=== PATIENT | male | born 1955 | race Caucasian/White ===

== ENCOUNTER 2017-04-28 05:54 | Inpatient (IN) | payer OTHER ==
--- NOTE | 2017-04-14 15:26 | HP ---
AMENDED REPORT NOW INCLUDES COSIGNER DESIGNATION - ESIGNED BEFORE ADJUSTMENT HISTORY AND PHYSICAL: DATE OF ADMISSION/SURGERY: 04/28/17 DATE OF OFFICE VISIT: 04/14/17 SURGEON: Rosina Mcneil MD * (DICTATED BY HUGO ARMENDARIZ) PROCEDURE: Left total knee arthroplasty. CHIEF COMPLAINT: Left knee pain. HISTORY OF PRESENT ILLNESS: Mr. Hanks is a 61-year-old gentleman with complaints of left knee pain. He has failed conservative management and elected to proceed with a left total knee arthroplasty, which is scheduled for 04/28/[address] Mcneil. PAST MEDICAL HISTORY: Diabetes, hypertension, depression, anxiety, fibromyalgia , and sleep apnea. PAST SURGICAL HISTORY: Tonsillectomy, Achilles tendon repair, left knee arthroscopy, left adrenalectomy, and lithotripsy. CURRENT MEDICATIONS: 1. Victoza. 2. Lisinopril 5 mg daily. 3. Amlodipine 5 mg daily. 4. Toujeo. 5. Cialis. 6. Nortriptyline 25 mg 1 to 2 tabs every night. 7. Multivitamin. 8. Vitamin C. 9. Vitamin D. 10. CoQ10. 11. Magnesium. 12. Metformin 500 mg 2 tabs twice daily. 13. Repaglinide. ALLERGIES: None. FAMILY HISTORY: Cancer and stroke. SOCIAL HISTORY: A 61-year-old gentleman. Lives with his . He does not smoke. He denies use of drugs or alcohol. REVIEW OF SYSTEMS: A complete 14-point review of systems was reviewed with the patient, was positive for sleep apnea, diabetic neuropathy, diabetes. He denies history of DVT, PE, hepatitis C, HIV, or anesthesia problems. PHYSICAL EXAMINATION GENERAL: He is well developed, well nourished, in no acute distress. VITAL SIGNS: He stands 5 feet 11 inches tall, weighs 240 pounds. His blood pressure is 142/78, his heart rate is 88. HEENT: Normocephalic, atraumatic. NECK: Supple. No palpable lymph nodes. PULMONARY: Lungs are clear to auscultation bilaterally. CARDIO: Regular rate and rhythm. Strong S1, S2. ABDOMEN: Soft, nontender, nondistended. NEUROLOGICAL: He is alert and oriented x3. Cranial nerves II through XII are intact. MUSCULOSKELETAL: Left lower extremity, the skin is intact. There are no open wounds or abrasions. He has moderate joint effusion, tenderness over the medial and lateral joint line. 10 to 120 degrees of flexion. 2+ dorsalis pedis pulses, intact sensation, and his lower extremity muscle group strengths are intact at 5/5. ASSESSMENT AND PLAN: Mr. Hanks is a 61-year-old gentleman with left knee pain secondary to end-stage osteoarthritis. He has failed conservative management and has elected to proceed with a left total knee arthroplasty, which is scheduled for 04/28/[address] Mcneil discussed the risks and benefits of the surgery at today's visit and all of his questions were answered. Coumadin, Colace, and Percocet were sent to his pharmacy for postoperative pain control and DVT prophylaxis. He will follow up with Dr. Mcneil in 2 weeks after the surgery. HUGO ARMENDARIZ [id number]/[facility] #: [id number] [facility]
[~2017-04-28 05:54] MED LIST: Buffered Lidocaine 0.9% SYRIN* 5 ML/SYR SYRINGE INTRADERM ONE
[2017-04-28] MEDS ORDERED: Acetaminophen IV 1GM/100ML * 1,000 MG/100 ML VIAL IVPB ONE (06:00)
[2017-04-28] MEDS ORDERED: Dexamethasone IV* 4 MG/ML 1 ML (4 MG) IV SLOW PU ONE (06:00)
[2017-04-28] MEDS ORDERED: Gabapentin CAP(*) 300 MG PO ONE (06:00)
[2017-04-28] MEDS ORDERED: Famotidine IV* 10 MG/ML 2 ML (20 mg) IV ONE (06:00)
[2017-04-28] MEDS ORDERED: Acetaminophen IV 1GM/100ML * 100 ML ONE (06:13)
[2017-04-28] MEDS ORDERED: ceFAZolin 2 GM in 100 MLS NS (*) BAG IVPB ONE (06:16)
[2017-04-28] MEDS ORDERED: Dexamethasone IV* 4 MG/ML 1 ML (4 MG) ONE (06:16)
[2017-04-28] MEDS ORDERED: Gabapentin CAP(*) 300 MG ONE (06:16)
[2017-04-28] MEDS ORDERED: Buffered Lidocaine 0.9% SYRIN* 5 ML/SYR SYRINGE ONE (06:16)
[2017-04-28] MEDS ORDERED: Famotidine IV* 10 MG/ML 2 ML (20 mg) ONE (06:16)
[2017-04-28] MEDS ORDERED: Phenylephrine INJ* 10 MG/ML 1 ML VIAL (10 MG) ONE (07:05)
[2017-04-28] MEDS ORDERED: fentaNYL* 50 MCG/ML 5 ML VIAL (250 MCG VIAL) ONE (07:19)
[2017-04-28] MEDS ORDERED: Propofol* 10 MG/ML 20 ML BTL IV PUSH ONE (07:19)
[2017-04-28] MEDS ORDERED: Ketorolac INJ* 30 MG/ML 1 ML VIAL ONE (07:19)
[2017-04-28] MEDS ORDERED: Midazolam* 1 MG/ML 10 ML VIAL (10 MG) ONE (07:19)
[2017-04-28] MEDS ORDERED: Ondansetron INJ* 2 MG/ML VIAL ONE (07:19)
[2017-04-28] MEDS ORDERED: ROPIVACAINE 5 MG/ML 30 ML BTL (0.5%) ONE (07:20)
[2017-04-28] MEDS ORDERED: Atracurium* 10 MG/ML 10 ML VIAL ONE (07:20)
[2017-04-28] MEDS ORDERED: Bupivacaine 0.5% SDV PF* 10-30ML VIAL ONE (07:33)
[2017-04-28] MEDS ORDERED: KETAMINE HCL* 50 MG/ML 10 ML VIAL ONE (07:39)
[2017-04-28] MEDS ORDERED: fentaNYL* 50 MCG/ML 2 ML VIAL (100 MCG VIAL) ONE ×3 (08:11→10:49)
[2017-04-28] MEDS ORDERED: Glycopyrrolate IV* 0.2 MG/ML 1 ML VIAL ONE (08:12)
[2017-04-28] MEDS ORDERED: DiMENhydriNATE IV* 50 MG/ML VIAL IV PUSH PRN (08:23)
[2017-04-28] MEDS ORDERED: Naloxone* 0.4 MG/ML 1 ML VIAL IV PRN (08:23)
[2017-04-28] MEDS ORDERED: Ondansetron INJ* 2 MG/ML VIAL IV PRN ×2 (08:23→10:05)
[2017-04-28] MEDS ORDERED: Morphine INJ* 2 MG/ML 1 ML CARPUJECT IV PRN (10:05)
[2017-04-28] MEDS ORDERED: traZODone TAB* 50 MG TAB PO PRN (10:05)
[2017-04-28] MEDS ORDERED: diPHENhydraMINE IV* 50 MG/ML 1 ml VIAL (BENADRYL) IV PRN (10:05)
[2017-04-28] MEDS ORDERED: Magnesium Hydroxide LIQ* 30 ML UDC PO PRN (10:05)
[2017-04-28] MEDS ORDERED: Polyethylene Glycol 3350* 17 GM PACKET PO PRN (10:05)
[2017-04-28] MEDS ORDERED: Bisacodyl SUPP* 10 MG SUPP PR PRN (10:05)
[2017-04-28] MEDS ORDERED: oxyCODONE/Acetamin 5/325 MG* TAB PO PRN (10:05)
[2017-04-28] MEDS ORDERED: Dextrose 50% Syringe 50 ML* 25 GM/50 ML SYRINGE IV PUSH PRN ×2 (10:09→13:43)
[2017-04-28] MEDS ORDERED: HYDROmorphone INJ* 2 MG/ML CARPUJECT SYRINGE ONE (10:15)
[2017-04-28] MEDS: fentaNYL* 50 MCG/ML 2 ML VIAL (100 MCG VIAL) IV PRN ×3 (10:16→10:55)
[2017-04-28] MEDS: HYDROmorphone INJ* 1 MG/ML CARPUJECT SYRINGE IV PRN ×4 (10:19→10:56)
[2017-04-28] MEDS ORDERED: oxyCODONE TAB* 5 MG TAB ONE (10:59)
[2017-04-28] MEDS: oxyCODONE TAB* 5 MG TAB PO PRN ×3 (11:00→17:19)
[2017-04-28] MEDS ORDERED: Enoxaparin(*) 40 MG/0.4 ML SYR SUBCUT SCH (11:00)
--- NOTE | 2017-04-28 11:17 | RAD ---
Indication: Immediate postop exam following LEFT total knee replacement. Comparison: September 14, 2016 Technique: Portable AP and cross table lateral views LEFT knee. Report: Status post total knee replacement. Anterior surgical drain in place. Post-op fluid and gas is seen in the joint space and anterior subcutaneous tissues. Alignment is anatomic. No periprosthetic fracture evident. IMPRESSION: Unremarkable immediate postoperative appearance following LEFT knee replacement.
[2017-04-28] MEDS ORDERED: Insulin LISPRO* 1 UNITS UNIT SUBCUT SCH (11:30)
[2017-04-28] MEDS: Repaglinide TAB* 1 MG PO SCH (13:00)
[2017-04-28] MEDS: oxyCODONE/Acetamin 5/325 MG* TAB PO PRN ×2 (13:00→21:21)
[2017-04-28] MEDS: Enoxaparin(*) 40 MG/0.4 ML SYR SUBCUT SCH (13:01)
[2017-04-28] MEDS ORDERED: Insulin GLARGINE(*) 1 UNITS UNIT SUBCUT SCH (15:00)
[2017-04-28] MEDS ORDERED: Warfarin TAB(*) 6 MG PO ONE (17:00)
[2017-04-28] MEDS: ceFAZolin 1 GM in Dextrose (*) 1 GM/50 ML BAG IVPB SCH (17:18)
[2017-04-28] MEDS: Nortriptyline CAP* 25 MG PO SCH (17:18)
[2017-04-28] MEDS: metFORMIN* 1,000 MG TAB PO SCH (17:18)
[2017-04-28] MEDS: Insulin LISPRO* 1 UNITS UNIT SUBCUT SCH (18:24)
[2017-04-28] MEDS: Magnesium Hydroxide LIQ* 30 ML UDC PO SCH (19:34)
[2017-04-28] MEDS: Docusate CAP* 100 MG PO SCH (21:21)
--- NOTE | 2017-04-29 00:29 | CONS ---
CC: Dr. Mcneil; Dr. Farley CONSULTATION REPORT: DATE OF CONSULT: 04/28/17 The patient was requested to be consulted by the hospitalist service from Dr. Mcneil's service in [facility] to medical management of patient's hypertension and diabetes. CHIEF COMPLAINT: Left knee tingling and sore throat. HISTORY OF PRESENT ILLNESS: Duncan Hanks is a 61-year-old male with history of diabetes, hypertens ion, obstructive sleep apnea, who is status post left total knee arthroplasty performed by Dr. Mcneil today. The patient had general anesthesia since he requested it. He stated that he had spinal anest hesia for Achilles tendon repair and it "did not feel right." Right now, he complains of association of having a sore throat, but he has no problems swallowing. Campbell schultz has postoperative knee tingles. PAST MEDICAL HISTORY: 1. History of hypertension. 2. History of osteoarthritis. 3. History of dyslipidemia. 4. Obstructive sleep apnea, on CPAP. 5. Diabetes type 2. 6. History of hyperaldosteronism due to left adrenal adenoma. This was resected 4 years ago. 7. History of tonsillectomy. 8. History of arthroscopic knee surgery in the past. 9. History of Achilles tendon repair. MEDICATIONS: Include: 1. Lisinopril 5 mg daily. 2. Amlodipine 5 mg daily. 3. Insulin Lantus 60 units daily. 4. Nortriptyline 25 mg daily. 5. Prandin 1 mg at noon. 6. Cialis 2.5 mg on p.r.n. basis. 7. Ascorbic acid 1000 mg daily. 8. Vitamin D3 5000 units daily. 9. Coenzyme Q10 1 tablet daily. 10. Naproxen 220 mg b.i.d. p.r.n. 11. Multivitamin 1 tablet daily. 12. Metformin 1000 mg b.i.d. 13. Mag citrate 200 mg b.i.d. 14. Victoza 1.2 mg subcutaneously daily. 15. Flaxseed oil 1000 mg daily. 16. Ibuprofen on a p.r.n. basis. ALLERGIES: No known drug allergies. FAMILY HISTORY: Positive for mother who in her 80s of complications of TIAs and strokes. Fathe r who at age of 72 secondary to colon cancer. SOCIAL HISTORY: The patient denies any tobacco, alcohol, drug use. As his surrogate, he named his s isterKim. He works at [employer] at [employer]. REVIEW OF SYSTEMS: Please see history of present illness. All the remaining 12 systems were reviewed with the patient and were otherwise negative. PHYSICAL EXAM: Blood pressure of 153/82, heart rate of 95 and regular, respiratory rate 16, oxygen s aturation 95% on room air, temperature 99.9. General: The patient is a very pleasant 61-year-old ob beltran male, who is in no acute distress. Alert, awake, and oriented x3. HEENT: Head atraumatic, normo cephalic. Eyes: Extraocular motions are intact. Pupils are equal, reactive to light and accommodati on. Oropharynx is clear. Mucosa moist. Neck: Supple. No JVD, no bruits bilaterally. Cardiovascu lar: Regular rate and rhythm. No murmur. Respiratory: Clear to auscultation bilaterally. Abdomen: Soft, nontender. Bowel sounds are present in all 4 quadrants. Extremities: There is no edema. P ulses +2 bilaterally. No clubbing or cyanosis. Left knee is in Cryo unit postoperatively. On evalua tion of skin, no ecchymotic areas or rashes noted. Please note that in the left knee, there is a pos tsurgical wrap, was not undressed for evaluation. ASSESSMENT AND PLAN: 1. In regards to patient's left knee arthroscopy and recent surgery, that is b y Dr. Mcneil's service. The patient was already started on warfarin for DVT prophylaxis as well as Lo venox. 2. In regards to patient's diabetic management, the patient is very reluctant to have fingerstick fr equently. He had unpleasant experience in the past with some trauma to his fingertips and he is pret ty sensitive. At this point, he agrees to have fingersticks a.c. 3 times a day with lispro coverage. For the time being, I will place patient on Lantus insulin 10 mg daily and restart his metformin. The patient also is going to be continued on his Prandin. 3. In regards to his hypertension, his blood pressure is in the 150s currently. At this point, I am going to restart the patient's Norvasc and lisinopril. 4. For DVT prophylaxis, as stated above, the patient is going to be continued on Coumadin and Loveno x as per primary service. 5. Obstructive sleep apnea. The patient is to continue his CPAP, which he currently has in his room . TIME SPENT: Approximately 55 minutes were spent on consultation of this patient. Thank you very much for allowing me to see your patient in consultation. We will follow on a daily b asis. [id number]/[facility] #: [id number]
[2017-04-29] MEDS: ceFAZolin 1 GM in Dextrose (*) 1 GM/50 ML BAG IVPB SCH ×2 (00:50→09:15)
[2017-04-29] MEDS: oxyCODONE/Acetamin 5/325 MG* TAB PO PRN ×5 (03:54→20:55)
[2017-04-29 05:45] LABS: Hematocrit 33 % (42-52); Hemoglobin 11.2 g/dl (14.0-18.0); Mean Platelet Volume 6 um3 (7.4-10.4); Platelet Count 295 10^3/ul (150-450)
[2017-04-29 06:00] LABS: INR 1.16 (0.77-1.02)
[2017-04-29 06:01] LABS: EGFR Non-African American 110.3 (>60)
--- NOTE | 2017-04-29 08:19 | PN ---
Subjective Date of Service: 04/29/17 Interval History: Pt feels well. the left knee hurts "a little" Throat still sore after intubation Objective Active Medications: Amlodipine Besylate (Norvasc Tab*) 5 mg PO QAM [facility] Bisacodyl (Dulcolax Supp*) 10 mg NC DAILY PRN PRN Reason: constipation Cholecalciferol (Vitamin D Tab*) 5,000 units PO DAILY [facility] Cyclobenzaprine HCl (Flexeril Tab*) 5 mg PO TID PRN PRN Reason: SPASMS Dextrose (D50w Syringe 50 Ml*) 12.5 gm IV PUSH .FOR FS < 60 - SS PRN PRN Reason: FS < 60 Diphenhydramine HCl (Benadryl Iv*) 25 mg IV Q6H PRN PRN Reason: itching Docusate Sodium (Colace Cap*) 100 mg PO BID [facility] Last Admin: 04/28/17 21:21 Dose: 100 mg Enoxaparin Sodium (Lovenox(*)) 40 mg SUBCUT 1300 [facility] Last Admin: 04/28/17 13:01 Dose: 40 mg Lactated Ringer's (Lactated Ringers 1000 Ml Bag*) 1,000 mls @ 100 mls/hr IV PER RATE [facility] Last Admin: 04/28/17 21:22 Dose: 100 mls/hr Insulin Glargine (Lantus(*)) 15 units SUBCUT Q24H [facility] Insulin Human Lispro (Humalog*) 0 units SUBCUT AC [facility] PRN Reason: Protocol Last Admin: 04/28/17 18:24 Dose: 2 unit Lactulose (Lactulose*) 30 ml PO Q6H PRN PRN Reason: constipation Lisinopril (Prinivil Tab*) 5 mg PO DAILY [facility] Magnesium Hydroxide (Milk Of Magnesia Liq*) 30 ml PO BID [facility] Last Admin: 04/28/17 19:34 Dose: Not Given Magnesium Hydroxide (Milk Of Magnesia Liq*) 30 ml PO Q6H PRN PRN Reason: constipation Metformin HCl (Glucophage*) 1,000 mg PO 0800,1700 [facility] Last Admin: 04/28/17 17:18 Dose: 1,000 mg Morphine Sulfate (Morphine Inj (Syringe)*) 2 mg IV Q2H PRN PRN Reason: PAIN Multivitamins/Minerals (Theragran/Minerals Tab*) 1 tab PO QAM [facility] Naloxone HCl (Narcan*) 0.08 mg IV Q2M PRN PRN Reason: severe induced resp depression Stop: 04/29/17 08:22 Non-Formulary Medication (Co Q-10) 100 mg PO DAILY [facility] Nortriptyline HCl (Pamelor Cap*) 25 mg PO QPM [facility] Last Admin: 04/28/17 17:18 Dose: 25 mg Ondansetron HCl (Zofran Inj*) 4 mg IV Q6H PRN PRN Reason: nausea Oxycodone HCl (Roxycodone Tab*) 10 mg PO Q4H PRN PRN Reason: PAIN - SEVERE Last Admin: 04/28/17 17:19 Dose: 10 mg Oxycodone/Acetaminophen (Percocet 5/325 Tab*) 2 tab PO Q4H PRN PRN Reason: PAIN - MODERATE Last Admin: 04/29/17 03:54 Dose: 2 tab Oxycodone/Acetaminophen (Percocet 5/325 Tab*) 1 tab PO Q4H PRN PRN Reason: PAIN Polyethylene Glycol/Electrolytes (Miralax*) 17 gm PO DAILY PRN PRN Reason: Constipation Repaglinide (Prandin Tab*) 1 mg PO 1200 [facility] Last Admin: 04/28/17 13:00 Dose: 1 mg Trazodone HCl (Desyrel Tab*) 25 mg PO BEDTIME PRN PRN Reason: insomnia Vital Signs - 8 hr 04/29/17 04/29/17 04/29/17 03:46 03:54 06:34 Temperature 98.2 F Pulse Rate 96 Respiratory 18 18 18 Rate Blood Pressure 115/78 (mmHg) O2 Sat by Pulse 99 Oximetry 04/29/17 07:46 Temperature 97.5 F Pulse Rate 86 Respiratory 18 Rate Blood Pressure 123/59 (mmHg) O2 Sat by Pulse 99 Oximetry Oxygen Devices in Use Now: None Appearance: 61 yo m in nAD, aAOx3 Eyes: No Scleral Icterus, PERRLA Ears/Nose/Mouth/Throat: NL Teeth, Lips, Gums, - - soft palate with a couple of areas on blood injected tissue/abrasion like suspect due to intubation Respiratory: Symmetrical Chest Expansion and Respiratory Effort, Clear to Auscultation Cardiovascular: NL Sounds; No Murmurs; No JVD, RRR Abdominal: NL Sounds; No Tenderness; No Distention, No Hepatosplenomegaly Lymphatic: No Cervical Adenopathy Extremities: No Edema, No Clubbing, Cyanosis Skin: No Rash or Ulcers, No Nodules or Sclerosis, - - left knee-post op dressing not removed Neurological: Alert and Oriented x 3, NL Muscle Strength and Tone Result Diagrams: 04/29/17 05:30 04/29/17 05:30 Assess/Plan/Problems-Billing Assessment: 61 yo M with h/o HTN, DM2, after a left total knee replacement - Patient Problems (1) S/P total knee arthroplasty Comment: as per Dr. Mcneil (2) HTN (hypertension) Comment: controlled on home meds (3) DM2 (diabetes mellitus, type 2) Comment: cont ISS ans increasing Lantus to 15 U today. cont metformin Holding remaining diabetic home meds. (4) DVT prophylaxis Comment: coumadin and Lovenox as per ortho Status and Disposition: consult
[2017-04-29] MEDS: Cholecalciferol TAB* 1000 UNITS PO SCH (08:33)
[2017-04-29] MEDS: Docusate CAP* 100 MG PO SCH ×2 (08:35→19:34)
[2017-04-29] MEDS: metFORMIN* 1,000 MG TAB PO SCH ×2 (08:35→16:52)
[2017-04-29] MEDS: Lisinopril TAB* 5 MG PO SCH (08:36)
[2017-04-29] MEDS: amLODIPine TAB* 5 MG PO SCH (08:36)
[2017-04-29] MEDS: Insulin LISPRO* 1 UNITS UNIT SUBCUT SCH ×3 (08:37→16:54)
[2017-04-29] MEDS: Multivitamins/Minerals TAB PO SCH (08:39)
[2017-04-29] MEDS: Magnesium Hydroxide LIQ* 30 ML UDC PO SCH ×2 (08:39→19:34)
[2017-04-29] MEDS: CO Q10 100 MG PO SCH (08:40)
--- NOTE | 2017-04-29 09:14 | PN ---
Progress Note - Progress Note Date of Service: 04/29/17 SOAP: Subjective: Pt. is alert, reports pain is moderate to severe with activity. Objective: LLE - drain removed, tip intact. dressing c/d/i. distally no edema, +df/pf , full sens lt, 2+ dp pulse. Vital Signs: Temp Pulse Resp BP Pulse Ox 97.5 F 86 17 123/59 99 04/29/17 07:46 04/29/17 07:46 04/29/17 08:42 04/29/17 07:46 04/29/17 07:46 Laboratory Results - last 24 hr 04/28/17 04/28/17 04/29/17 10:09 17:30 05:30 Hgb 11.2 L Hct 33 L Plt Count 295 MPV 6 L INR (Anticoag Therapy) Sodium Potassium Chloride Carbon Dioxide Anion Gap BUN Creatinine Est GFR ( Amer) Est GFR (Non-Af Amer) BUN/Creatinine Ratio Glucose POC Glucose (mg/dL) 179 H 168 H Calcium 04/29/17 04/29/17 05:30 05:30 Hgb Hct Plt Count MPV INR (Anticoag Therapy) 1.16 H Sodium 134 Potassium 4.1 Chloride 102 Carbon Dioxide 26 Anion Gap 6 BUN 14 Creatinine 0.72 Est GFR ( Amer) 141.8 Est GFR (Non-Af Amer) 110.3 BUN/Creatinine Ratio 19.4 Glucose 200 H POC Glucose (mg/dL) Calcium 8.5 L Assessment: 61 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
[2017-04-29] MEDS: oxyCODONE TAB* 5 MG TAB PO PRN ×4 (10:07→23:27)
[2017-04-29] MEDS: Cyclobenzaprine TAB* 10 MG PO PRN ×2 (10:09→20:54)
[2017-04-29] MEDS: Enoxaparin(*) 40 MG/0.4 ML SYR SUBCUT SCH (13:01)
--- NOTE | 2017-04-29 13:10 | OP ---
DATE OF OPERATION: 04/28/17 - ROOM #342 DATE OF : 51 ATTENDING SURGEON: Rosina Mcneil MD EXTRUSION DIE COORDINATOR: HUGO Leblanc. Marisel did help throughout the procedure with preparation of the leg, wound retraction, manipulation of the knee, and wound closure. ANESTHESIOLOGIST: Dr. James. ANESTHESIA: Spinal. PRE-OP DIAGNOSIS: Severe end-stage degenerative osteoarthritis of the left knee joint. POST-OP DIAGNOSIS: Severe end-stage degenerative osteoarthritis of the left knee joint. OPERATIVE PROCEDURE: Left total knee arthroplasty. TOURNIQUET TIME: 44 minutes. COMPLICATIONS: None. ESTIMATED BLOOD LOSS: 200 cc. SPECIMENS: Bone and Cartilage from the left knee joint sent to Pathology. HARDWARE USED: [employer] Cemented total knee arthroplasty hardware. Two packages of simplex bone cement were used. For the femur a size 6 left posterior stabilized Legion Oxinium femoral component. For the tibia a size 5 left tibial base plate Kellie II. For the insert a 9 mm posterior stabilized articular insert, size 5/6. For the patella a 35-mm 3-peg all polyp patella. BRIEF HISTORY/INDICATIONS: Mr. Hanks is a 61-year-old gentleman with years of increasingly severe left knee pain. He failed conservative treatment with antiinflammatories, pain medications, intraarticular injection, and physical therapy. Radiographs showed [id number] arthritis. Due to continued pain and decreased quality of life, he elected to undergo a left total knee arthroplasty. Informed consent was obtained from the patient. He understood the risks of surgery included but were not limited to bleeding, infection, damage to nearby structures, continued pain, need for further surgery, intraoperative fracture, nerve palsy, hardware failure or loosening, knee stiffness, loss of motion, stroke, heart attack, blood clot, and . He wished to proceed. INTRAOPERATIVE FINDINGS: Intraoperatively, the patient was noted to have full thickness loss of cartilage in both the medial and patellofemoral compartment. DESCRIPTION OF PROCEDURE: Mr. Hanks was identified in the preanesthesia unit. His left lower extremity was marked as the correct operative site. Informed consent was signed and placed in the chart. The patient was taken to the operating room and placed under spinal anesthesia. Kearney catheter was placed. Tourniquet was placed on the left thigh. Left lower extremity was prepped and draped in the usual sterile fashion. Preop time-out was performed to once again correctly identify the patient, side and site. Appropriate perioperative antibiotics were given within 1 hour of incision. Tourniquet was inflated and total tourniquet time for this procedure was 44 minutes. A midline incision was made at 10 blade and carried down to the extensor mechanism. A new 10-blade was used to make a standard medial parapatellar arthrotomy. The patella was subluxed laterally. Electrocautery was used to subperiosteally elevate the soft tissue off the superomedial tibia to the mid sagittal plane. The knee was flexed up. The anterior horn of the lateral meniscus and ACL were sharply released. A drill was used to enter the distal femur. Intramedullary distal femoral cutting guide was pinned onto the distal femur. The oscillating saw was used to make the appropriate distal femoral cut. External rotation guide was pinned on the distal femur. Distal femur was sized to a size 6. Size 6 multi cutting jig was pinned on the distal femur. Oscillating saw was used to make the appropriate 4 chamfer cuts. The PCL was completely released. Tibia was subluxed anteriorly. Extramedullary tibial cutting guide was pinned on the proximal tibia. Oscillating saw was used to make a proximal tibial cut perpendicular to the mechanical axis of the tibia. The bone was carefully removed. The knee was brought out into full extension. Spacer block had good fit. Medial and lateral ligaments were well balanced. Flexion and extension gaps were well balanced. The knee was flexed up. Lamina collar feller was placed both medially and laterally. Any remaining meniscus was removed using electrocautery. Curved osteotome was used to remove posterior osteophytes. Tibial tray and drop marcos were placed to once again confirm satisfactory tibial cut. Tibial cut was confirmed to be satisfactory. A size 6 left femoral trial was impacted on to the distal femur and had good fit. The box for the posterior stabilized implant was prepared using a reamer and box- cut osteotome. A size 5 tibial tray trial with a 9-mm insert trial was placed and the knee was taken through range of motion. The knee had full extension to 130 degrees of flexion. There was satisfactory patellofemoral tracking. The patella was everted. 9 mm of patellar bone and cartilage was carefully removed with an oscillating saw. The patella was sized to a size 35. The three peg holes were drilled through the size 35 guide. 35 trial patellar was placed and the knee was taken through range of motion. There was satisfactory patellofemoral tracking. All trials were carefully removed. The tibia was subluxed anteriorly and sized to a size 5. Proximal tibia was prepared using a size 5 keel punch. All bony cut surfaces were copiously irrigated with sterile saline and dried. Final implants were cemented into place starting with the tibia followed by the femur and last the patella. A 9-mm insert trial was placed and the knee was brought out into full extension. Tourniquet was turned down at 44 minutes. The knee was copiously irrigated with sterile saline. Electrocautery was used to obtain meticulous hemostasis. Once the cement had fully cured, the insert trial was removed. Any excess cement was removed from around the capsule and hardware. Final insert chosen was a 9-mm posterior stabilized insert, size 5/6. This was locked into position on the tibial tray. Stability of the insert was checked and rechecked and noted to be stable. The knee was once again copiously irrigated with sterile saline. The extensor mechanism was closed over a medium Hemovac drain using interrupted #1 Vicryls. The rest of the incision was closed in a layered fashion using 0 and 2-0 Vicryls. Skin was closed using running 3-0 nylon suture. Xeroform, 4x4s, and Webril were used to cover the incision. Juan wrap and cold pack were placed over this. The patient's anesthesia was reversed without difficulty. He was taken to the PACU in stable condition. Intended weightbearing will be weightbearing as tolerated. Intended DVT prophylaxis will be Coumadin with a Lovenox bridge. [id number]/[facility] #: [id number] [facility]
[2017-04-29] MEDS: Repaglinide TAB* 1 MG PO SCH (13:23)
[2017-04-29] MEDS ORDERED: Insulin GLARGINE(*) 1 UNITS UNIT SUBCUT SCH (15:00)
[2017-04-29] MEDS: Nortriptyline CAP* 25 MG PO SCH (16:52)
[2017-04-30] MEDS: oxyCODONE/Acetamin 5/325 MG* TAB PO PRN ×5 (01:08→23:18)
[2017-04-30 05:41] LABS: Hematocrit 33 % (42-52); Hemoglobin 11.4 g/dl (14.0-18.0); Mean Platelet Volume 6 um3 (7.4-10.4); Platelet Count 275 10^3/ul (150-450)
[2017-04-30 05:47] LABS: INR 1.12 (0.77-1.02)
[2017-04-30] MEDS: oxyCODONE TAB* 5 MG TAB PO PRN ×3 (06:14→14:35)
[2017-04-30] MEDS: Cholecalciferol TAB* 1000 UNITS PO SCH (08:29)
[2017-04-30] MEDS: metFORMIN* 1,000 MG TAB PO SCH ×2 (08:29→17:20)
[2017-04-30] MEDS: Multivitamins/Minerals TAB PO SCH (08:29)
[2017-04-30] MEDS: Docusate CAP* 100 MG PO SCH ×2 (08:30→19:52)
[2017-04-30] MEDS: Lisinopril TAB* 5 MG PO SCH (08:30)
[2017-04-30] MEDS: amLODIPine TAB* 5 MG PO SCH (08:30)
[2017-04-30] MEDS: Magnesium Hydroxide LIQ* 30 ML UDC PO SCH ×2 (08:32→19:52)
[2017-04-30] MEDS: CO Q10 100 MG PO SCH (08:32)
[2017-04-30] MEDS: Insulin LISPRO* 1 UNITS UNIT SUBCUT SCH ×3 (08:33→17:19)
--- NOTE | 2017-04-30 11:22 | PN ---
Subjective Date of Service: 04/30/17 Interval History: Pt just had PT and feels "sore" Objective Active Medications: Amlodipine Besylate (Norvasc Tab*) 5 mg PO QAM [facility] Last Admin: 04/30/17 08:30 Dose: 5 mg Bisacodyl (Dulcolax Supp*) 10 mg UT DAILY PRN PRN Reason: constipation Cholecalciferol (Vitamin D Tab*) 5,000 units PO DAILY [facility] Last Admin: 04/30/17 08:29 Dose: 5,000 units Cyclobenzaprine HCl (Flexeril Tab*) 5 mg PO TID PRN PRN Reason: SPASMS Last Admin: 04/29/17 20:54 Dose: 5 mg Dextrose (D50w Syringe 50 Ml*) 12.5 gm IV PUSH .FOR FS < 60 - SS PRN PRN Reason: FS < 60 Diphenhydramine HCl (Benadryl Iv*) 25 mg IV Q6H PRN PRN Reason: itching Docusate Sodium (Colace Cap*) 100 mg PO BID [facility] Last Admin: 04/30/17 08:30 Dose: 100 mg Enoxaparin Sodium (Lovenox(*)) 40 mg SUBCUT 1300 [facility] Last Admin: 04/29/17 13:01 Dose: 40 mg Lactated Ringer's (Lactated Ringers 1000 Ml Bag*) 1,000 mls @ 100 mls/hr IV PER RATE [facility] Last Admin: 04/28/17 21:22 Dose: 100 mls/hr Insulin Glargine (Lantus(*)) 15 units SUBCUT Q24H [facility] Last Admin: 04/29/17 15:11 Dose: 15 units Insulin Human Lispro (Humalog*) 0 units SUBCUT AC [facility] PRN Reason: Protocol Last Admin: 04/30/17 08:33 Dose: 4 unit Lactulose (Lactulose*) 30 ml PO Q6H PRN PRN Reason: constipation Lisinopril (Prinivil Tab*) 5 mg PO DAILY [facility] Last Admin: 04/30/17 08:30 Dose: 5 mg Magnesium Hydroxide (Milk Of Magnesia Liq*) 30 ml PO BID [facility] Last Admin: 04/30/17 08:32 Dose: 30 ml Magnesium Hydroxide (Milk Of Magnesia Liq*) 30 ml PO Q6H PRN PRN Reason: constipation Metformin HCl (Glucophage*) 1,000 mg PO 0800,1700 [facility] Last Admin: 04/30/17 08:29 Dose: 1,000 mg Morphine Sulfate (Morphine Inj (Syringe)*) 2 mg IV Q2H PRN PRN Reason: PAIN Multivitamins/Minerals (Theragran/Minerals Tab*) 1 tab PO QAM [facility] Last Admin: 04/30/17 08:29 Dose: 1 tab Non-Formulary Medication (Co Q-10) 100 mg PO DAILY [facility] Last Admin: 04/30/17 08:32 Dose: Not Given Nortriptyline HCl (Pamelor Cap*) 25 mg PO QPM [facility] Last Admin: 04/29/17 16:52 Dose: 25 mg Ondansetron HCl (Zofran Inj*) 4 mg IV Q6H PRN PRN Reason: nausea Oxycodone HCl (Roxycodone Tab*) 10 mg PO Q4H PRN PRN Reason: PAIN - SEVERE Last Admin: 04/30/17 10:35 Dose: 10 mg Oxycodone/Acetaminophen (Percocet 5/325 Tab*) 2 tab PO Q4H PRN PRN Reason: PAIN - MODERATE Last Admin: 04/30/17 08:29 Dose: 2 tab Oxycodone/Acetaminophen (Percocet 5/325 Tab*) 1 tab PO Q4H PRN PRN Reason: PAIN Polyethylene Glycol/Electrolytes (Miralax*) 17 gm PO DAILY PRN PRN Reason: Constipation Repaglinide (Prandin Tab*) 1 mg PO 1200 [facility] Last Admin: 04/29/17 13:23 Dose: 1 mg Trazodone HCl (Desyrel Tab*) 25 mg PO BEDTIME PRN PRN Reason: insomnia Vital Signs - 8 hr 04/30/17 04/30/17 04/30/17 04:19 06:14 07:50 Temperature 98.5 F 99.0 F Pulse Rate 93 98 Respiratory 16 14 18 Rate Blood Pressure 134/66 123/66 (mmHg) O2 Sat by Pulse 94 93 Oximetry 04/30/17 04/30/17 04/30/17 08:00 08:29 08:33 Temperature Pulse Rate Respiratory 16 16 16 Rate Blood Pressure (mmHg) O2 Sat by Pulse 93 Oximetry 04/30/17 10:35 Temperature Pulse Rate Respiratory 20 Rate Blood Pressure (mmHg) O2 Sat by Pulse Oximetry Oxygen Devices in Use Now: None Appearance: 61 yo M in nAD, aAOx3 Eyes: No Scleral Icterus, PERRLA Ears/Nose/Mouth/Throat: NL Teeth, Lips, Gums, Mucous Membranes Moist Neck: NL Appearance and Movements; NL JVP, Trachea Midline Respiratory: Symmetrical Chest Expansion and Respiratory Effort, Clear to Auscultation Cardiovascular: NL Sounds; No Murmurs; No JVD, RRR Lymphatic: No Cervical Adenopathy Extremities: No Clubbing, Cyanosis, - - leg leg with trase pedal edema, cryo unit on left knee Skin: No Nodules or Sclerosis, - - left knee incision not inspected Neurological: Alert and Oriented x 3, NL Muscle Strength and Tone Result Diagrams: 04/30/17 05:20 04/29/17 05:30 Assess/Plan/Problems-Billing Assessment: 61 yo M with h/o HTN, DM2, after a left total knee replacement - Patient Problems (1) S/P total knee arthroplasty Comment: as per Dr. Mcneil (2) HTN (hypertension) Comment: controlled on home meds (3) DM2 (diabetes mellitus, type 2) Comment: cont ISS ans increasing Lantus to 20 U today. cont metformin Holding remaining diabetic home meds. (4) DVT prophylaxis Comment: coumadin and Lovenox as per ortho Status and Disposition: consult
--- NOTE | 2017-04-30 11:51 | PN ---
Progress Note - Progress Note Date of Service: 04/30/17 SOAP: Subjective: 61 y/o male s/p L TKA by Dr. Mcneil 04/28. Patient fatigued, pain well controlled , no complaints, mutliple questions answered. VSS, afebrile overnight. Objective: General- Well appearing, NAD, AO MSK- l LE- DF/PF 2+ b/l, PT 2+, negative homans sign. surgical dressing intact , no drainage noted. Assessment: Stable 61 y/o male s/p L TKA by Dr. Mcneil 04/28. Plan: - DVT prophylaxis- lovenox, coumadin 8mg tonight - Continue PT/ OT - Follow up with Dr. Mcneil within 10-14 days - H&H stable - post-op IV ABX - completed. - POssible D/C this afternoon to home, otherwise tomorrow AM Vital Signs Temp 99.0 F 04/30/17 07:50 Pulse 98 04/30/17 07:50 Resp 16 04/30/17 11:41 BP 123/66 04/30/17 07:50 Pulse Ox 93 04/30/17 08:00 Intake & Output 04/29/17 04/30/17 04/30/17 18:59 06:59 18:59 Intake Total 1280 2500 Output Total 2970 1500 225 Balance -1690 1000 -225 Intake: Oral 1280 2500 Output: Urine 2970 1500 225 Other: # Voids 3 Active Medications Generic Name Dose Route Start Last Admin Trade Name Freq PRN Reason Stop Dose Admin Amlodipine Besylate 5 mg 04/29/17 09:00 04/30/17 08:30 Norvasc Tab* PO 5 mg QAM [facility] Administration Bisacodyl 10 mg 04/28/17 10:05 Dulcolax Supp* MO DAILY PRN constipation Cholecalciferol 5,000 units 04/29/17 09:00 04/30/17 08:29 Vitamin D Tab* PO 5,000 units DAILY [facility] Administration Cyclobenzaprine HCl 5 mg 04/28/17 10:05 04/29/17 20:54 Flexeril Tab* PO 5 mg TID PRN Administration SPASMS Dextrose 12.5 gm 04/28/17 13:43 D50w Syringe 50 Ml* IV PUSH .FOR FS < 60 - SS PRN FS < 60 Diphenhydramine HCl 25 mg 04/28/17 10:05 Benadryl Iv* IV Q6H PRN itching Docusate Sodium 100 mg 04/28/17 21:00 04/30/17 08:30 Colace Cap* PO 100 mg BID [facility] Administration Enoxaparin Sodium 40 mg 04/28/17 13:00 04/29/17 13:01 Lovenox(*) SUBCUT 40 mg 1300 [facility] Administration Lactated Ringer's 1,000 mls @ 100 mls/hr 04/28/17 11:00 04/28/17 21:22 Lactated Ringers 1000 Ml Bag* IV 100 mls/hr PER RATE [facility] Administration Insulin Glargine 20 units 04/30/17 15:00 Lantus(*) SUBCUT Q24H [facility] Insulin Human Lispro 0 units 04/28/17 16:30 04/30/17 08:33 Humalog* SUBCUT 4 unit AC [facility] Administration Protocol Lactulose 30 ml 04/28/17 10:05 Lactulose* PO Q6H PRN constipation Lisinopril 5 mg 04/29/17 09:00 04/30/17 08:30 Prinivil Tab* PO 5 mg DAILY [facility] Administration Magnesium Hydroxide 30 ml 04/28/17 21:00 04/30/17 08:32 Milk Of Magnesia Liq* PO 30 ml BID [facility] Administration Magnesium Hydroxide 30 ml 04/28/17 10:05 Milk Of Magnesia Liq* PO Q6H PRN constipation Metformin HCl 1,000 mg 04/28/17 17:00 04/30/17 08:29 Glucophage* PO 1,000 mg 0800,1700 [facility] Administration Morphine Sulfate 2 mg 04/28/17 10:05 Morphine Inj (Syringe)* IV Q2H PRN PAIN Multivitamins/Minerals 1 tab 04/29/17 09:00 04/30/17 08:29 Theragran/Minerals Tab* PO 1 tab QAM [facility] Administration Non-Formulary Medication 100 mg 04/29/17 09:00 04/30/17 08:32 Co Q-10 PO Not Given DAILY [facility] Nortriptyline HCl 25 mg 04/28/17 18:00 04/29/17 16:52 Pamelor Cap* PO 25 mg QPM [facility] Administration Ondansetron HCl 4 mg 04/28/17 10:05 Zofran Inj* IV Q6H PRN nausea Oxycodone HCl 10 mg 04/28/17 10:05 04/30/17 10:35 Roxycodone Tab* PO 10 mg Q4H PRN Administration PAIN - SEVERE Oxycodone/Acetaminophen 2 tab 04/28/17 10:05 04/30/17 08:29 Percocet 5/325 Tab* PO 2 tab Q4H PRN Administration PAIN - MODERATE Oxycodone/Acetaminophen 1 tab 04/28/17 10:05 Percocet 5/325 Tab* PO Q4H PRN PAIN Polyethylene Glycol/Electrolytes 17 gm 04/28/17 10:05 Miralax* PO DAILY PRN Constipation Repaglinide 1 mg 04/28/17 12:00 04/29/17 13:23 Prandin Tab* PO 1 mg 1200 [facility] Administration Trazodone HCl 25 mg 04/28/17 10:05 Desyrel Tab* PO BEDTIME PRN insomnia
[2017-04-30] MEDS: Insulin GLARGINE(*) 1 UNITS UNIT SUBCUT SCH (12:51)
[2017-04-30] MEDS: Enoxaparin(*) 40 MG/0.4 ML SYR SUBCUT SCH (12:52)
[2017-04-30] MEDS: Repaglinide TAB* 1 MG PO SCH (12:55)
[2017-04-30] MEDS: Nortriptyline CAP* 25 MG PO SCH (17:20)
[2017-05-01 05:39] LABS: Hematocrit 36 % (42-52); Hemoglobin 12.2 g/dl (14.0-18.0); Mean Platelet Volume 6 um3 (7.4-10.4); Platelet Count 323 10^3/ul (150-450)
[2017-05-01 05:49] LABS: INR 1.14 (0.77-1.02)
[2017-05-01] MEDS: oxyCODONE/Acetamin 5/325 MG* TAB PO PRN ×2 (06:01→10:16)
[2017-05-01 08:07] VITALS: BP 131/73
[2017-05-01] MEDS: Insulin LISPRO* 1 UNITS UNIT SUBCUT SCH ×2 (08:16→11:56)
[2017-05-01] MEDS: Magnesium Hydroxide LIQ* 30 ML UDC PO SCH (08:18)
[2017-05-01] MEDS: Cholecalciferol TAB* 1000 UNITS PO SCH (08:18)
[2017-05-01] MEDS: metFORMIN* 1,000 MG TAB PO SCH (08:18)
[2017-05-01] MEDS: Multivitamins/Minerals TAB PO SCH (08:18)
[2017-05-01] MEDS: Docusate CAP* 100 MG PO SCH (08:19)
[2017-05-01] MEDS: Lisinopril TAB* 5 MG PO SCH (08:19)
[2017-05-01] MEDS: amLODIPine TAB* 5 MG PO SCH (08:19)
[2017-05-01] MEDS: CO Q10 100 MG PO SCH (08:20)
--- NOTE | 2017-05-01 09:04 | PN ---
Progress Note - Progress Note Date of Service: 05/01/17 SOAP: Subjective: []Patient seen at bedside. His left knee pain is well controlled. He feels as though he has chills but denies cough, SOB, CP, GI upset. He is afebrile at this time. He has no history of blood clots. Objective: [] General- Well appearing, NAD, laying comfortably in bed MSK- LLE- DF/PF intact, PT pulse 2+. Dressing changed. Incision CDI without surrounding erythema or discharge BL LE: Calves supple and nontender without erythema, edema or palpable cords. Vital Signs Temp 97.5 F 05/01/17 07:37 Pulse 99 05/01/17 07:37 Resp 18 05/01/17 08:20 BP 131/73 05/01/17 07:37 Pulse Ox 99 05/01/17 08:00 Intake & Output 04/30/17 05/01/17 05/01/17 18:59 06:59 18:59 Intake Total 1020 1600 400 Output Total 1125 2050 300 Balance -105 -450 100 Intake: Oral 1020 1600 400 Output: Urine 1125 2050 300 Laboratory Last Values Hgb 12.2 g/dl (14.0-18.0) L 05/01/17 05:10 Hct 36 % (42-52) L 05/01/17 05:10 Plt Count 323 10^3/ul (150-450) 05/01/17 05:10 MPV 6 um3 (7.4-10.4) L 05/01/17 05:10 INR (Anticoag Therapy) 1.14 (0.77-1.02) H 05/01/17 05:10 Sodium 134 mmol/L (133-145) 04/29/17 05:30 Potassium 4.1 mmol/L (3.5-5.0) 04/29/17 05:30 Chloride 102 mmol/L (101-111) 04/29/17 05:30 Carbon Dioxide 26 mmol/L (22-32) 04/29/17 05:30 Anion Gap 6 mmol/L (2-11) 04/29/17 05:30 BUN 14 mg/dL (6-24) 04/29/17 05:30 Creatinine 0.72 mg/dL (0.67-1.17) 04/29/17 05:30 Est GFR ( Amer) 141.8 (>60) 04/29/17 05:30 Est GFR (Non-Af Amer) 110.3 (>60) 04/29/17 05:30 BUN/Creatinine Ratio 19.4 (8-20) 04/29/17 05:30 Glucose 200 mg/dL (70-100) H 04/29/17 05:30 POC Glucose (mg/dL) 168 mg/dL (70-100) H 04/28/17 17:30 Calcium 8.5 mg/dL (8.6-10.3) L 04/29/17 05:30 Assessment: Stable 61 y/o male s/p L TKA by Dr. Mcneil 04/28. Plan: -WBAT - DVT prophylaxis- lovenox shot today before DC. Transition to ASA 325 BID on discharge - Continue PT/ OT - Follow up with Dr. Mcneil within 10-14 days - Discharge today
[2017-05-01] MEDS: Insulin GLARGINE(*) 1 UNITS UNIT SUBCUT SCH (11:57)
[2017-05-01] MEDS: Repaglinide TAB* 1 MG PO SCH (11:57)
[2017-05-01] MEDS: Enoxaparin(*) 40 MG/0.4 ML SYR SUBCUT SCH (11:57)
--- NOTE | 2017-05-02 10:45 | DS ---
AMENDED REPORT NOW INCLUDES COSIGNER DESIGNATION - ESIGNED BEFORE ADJUSTMENTS DISCHARGE SUMMARY: DATE OF ADMISSION: 04/28/17 DATE OF DISCHARGE: 05/01/17 PROVIDER: Dr. Rosina Mcneil * (DICTATED BY HUGO LUCIO) LOGISTICS TEAM LEADER: HUGO Leblanc PRE-OP DIAGNOSIS: Severe end-stage degenerative osteoarthritis of the left knee joint. OPERATIVE PROCEDURE: Left total knee arthroplasty. HISTORY: Mr. Hanks is a 61-year-old gentleman with years of increasingly severe left knee pain. He failed conservative treatment with antiinflammatories , pain medications, intraarticular injection, and physical therapy. Radiograph showed [id number] arthritis. Due to increased pain and decreased quality of life, the patient elected to undergo a left total knee arthroplasty. HOSPITAL COURSE: The patient was admitted to [facility] on . He underwent a left total knee arthroplasty without complication. He was taken to the PACU in stable condition for a brief recovery and then he was transferred to the short-stay surgical unit again in stable condition. He was seen postop day 1 by both Orthopedics and by Medicine and Medicine managed his hypertension and his diabetes. The patient's drain was removed with tip intact , dressing clean, dry, and intact. No edema distally. Dorsiflexion and plantarflexion intact. Full sensation to light touch and 2+ dorsalis pedis pulse of the left lower extremity. Postop day 2, well appearing, no acute distress, alert and oriented. Left lower extremity dorsiflexion and plantarflexion intact. Posterior tibial pulse 2+. Negative Homans sign. Dressing intact with no drainage noted. On 05/01/17, left lower extremity dorsiflexion and plantarflexion intact. Posterior tibial pulse 2+. Dressing changed. Incision clean, dry, and intact without surrounding erythema or discharge. Calves were supple and nontender without erythema, edema, or palpable cords. The patient reported that on day of discharge, he did feel that he had chills though he remained afebrile. T-max during his stay was 100.9 , which occurred on 04/29/17. On 05/01/17 prior to discharge, temperature 97.5 , pulse rate 99, respiratory rate 17, oxygen saturation 98%, blood pressure 131/ 73. DISCHARGE MEDICATIONS: 1. Multivitamin. 2. Flaxseed oil 100 mg p.o. q.a.m. 3. Amlodipine 5 mg p.o. q.a.m. 4. Nortriptyline 25 mg p.o. q.p.m. 5. Lisinopril 5 mg p.o. daily. 6. Victoza 1.2 mg subcu a.m. 7. Insulin glargine 60 units subcu a.m. 8. Metformin 1000 mg p.o. b.i.d. 9. Magnesium citrate 200 mg p.o. b.i.d. 10. Naproxen was discontinued at home. 11. Tadalafil 2.5 mg p.o. q. 24 hours p.r.n. 12. Prandin 1 mg p.o. daily. 13. Ibuprofen discontinued at home. 14. CoQ10 100 mg p.o. daily. 15. Vitamin D3 5000 units p.o. daily. 16. Ascorbic acid 1000 mg p.o. daily. 17. Docusate 100 mg p.o. b.i.d. 18. Percocet 5/325 mg 1 to 2 tabs p.o. q. 4 hours p.r.n., max daily dose of 12. 19. Aspirin 325 mg p.o. b.i.d. for 30 days. DISCHARGE PLAN: Weightbearing as tolerated. Continue physical therapy and occupational therapy. Exercises are shown. Go to the emergency room with shortness of breath or chest pain. Call our office for increased drainage, redness, increased pain or fever. Visiting home nurse will do wound checks. Please alert home nurse, your PCP and/or Orthopedic office if you feel feverish or ill. DVT prophylaxis is with aspirin 325 mg p.o. every 12 hours for 30 days. Pain control with Percocet 5/325 one to two tabs by mouth every 4 to 6 hours as needed for pain, max daily dose of 10 tabs per day. Please follow up with Dr. Mcneil in 10 to 14 days or call for an appointment. HUGO LUCIO [id number]/[facility] #: [id number] [facility]
== END 2017-05-01 13:25 | disposition home health service (06) | DRG 470 ==
LOC: AA 05:54 → SSU 10:06
PROVIDERS: ADMIT Orthopaedic Surgery Adult Reconstructive Orthopaedic Surgery; ATTEND Orthopaedic Surgery Adult Reconstructive Orthopaedic Surgery
PROC: 0SRD069 Replacement of Left Knee Joint with Oxidized Zirconium on Polyethylene Synthetic Substitute, Cemented, Open Approach (ICD-10-PCS; principal; 2017-04-28 07:30)
DX: M17.12 Unilateral primary osteoarthritis, left knee (principal); E11.40 Type 2 diabetes mellitus with diabetic neuropathy, unspecified; E89.6 Postprocedural adrenocortical (-medullary) hypofunction; I10 Essential (primary) hypertension; F32.9 Major depressive disorder, single episode, unspecified; F41.9 Anxiety disorder, unspecified; M79.7 Fibromyalgia; G47.33 Obstructive sleep apnea (adult) (pediatric); M25.762 Osteophyte, left knee; E78.5 Hyperlipidemia, unspecified; E66.9 Obesity, unspecified; Z68.32 Body mass index [BMI] 32.0-32.9, adult; Z80.0 Family history of malignant neoplasm of digestive organs; Z82.3 Family history of stroke; J02.9 Acute pharyngitis, unspecified; R20.2 Paresthesia of skin; Z79.4 Long term (current) use of insulin
CPT/HCPCS: 36415; 80048; 85014; 85018; 85049; 85610; 88305; 88311; 94760; A9270-GY; C1776; J0690; J1100; J1170; J1650; J1885; J2250; J2270; J2405; J2704; J2795; J3010

== ENCOUNTER 2017-05-06 16:43 | Emergency (ER) | payer OTHER ==
[2017-05-06 17:13] VITALS: BP 139/89
--- NOTE | 2017-05-06 21:42 | UC ---
Med Ziegler Gabriel, scribed for Juan Baires MD on 05/06/17 at 1733 . Lower Extremity/Ankle HPI - HPI Summary HPI Summary: This patient is a 61 year old M presenting to [facility] accompanied by his family with a chief complaint of a possible LE blood clot. On 04-28-17 the patient had a total knee replacement by Dr. Mcneil. The patient rates the pain 4/10 in severity. Patient reports pain, ecchymosis, swelling, and redness all at the left leg. He contacted the surgeons office who advised him to come here. - History of Current Complaint Chief Complaint: UCLowerExtremity Stated Complaint: LEG SWELLING Hx Obtained From: Patient Onset/Duration: Still Present Severity Initially: Moderate Severity Currently: Moderate Pain Intensity: 4 Pain Scale Used: 0-10 Numeric Aggravating Factor(s): Ambulation - Allergies/Home Medications Allergies/Adverse Reactions: Allergies Allergy/AdvReac Type Severity Reaction Status Date / Time HAY FEVER AdvReac Mild Runny Nose Uncoded 05/06/17 17:14 PMH/Surg Hx/FS Hx/Imm Hx - Surgical History Surgical History: Yes Surgery Procedure, Year, and Place: LEFT ADRENAL GLAND REMOVED 2013 [facility]. LEFT ACHILLES TENDON REPAIR 6 YRS AGO [facility] [place]. TONSILS CHILD. RIGHT KIDNEY [facility] [place], SEPTEMBER 2012. MENESCUS REPAIR 2016 [facility] [place] [place] - Social History Alcohol Use: Occasionally Alcohol Amount: 1 PER WEEK Substance Use Type: Prescribed Smoking Status (MU): Never Smoked Tobacco Have You Smoked in the Last Year: No - Immunization History Most Recent Influenza Vaccination: 2014 Most Recent Pneumonia Vaccination: have had in the past Review of Systems Constitutional: Negative - fever Musculoskeletal: Other: - pain, ecchymosis, swelling, and redness all at the left leg. All Other Systems Reviewed And Are Negative: Yes Physical Exam Triage Information Reviewed: Yes Vital Signs: Initial Vital Signs Temp 98.0 F 05/06/17 17:10 Pulse 107 05/06/17 17:10 Resp 18 05/06/17 17:10 BP 139/89 05/06/17 17:10 Pulse Ox 97 05/06/17 17:10 Vital Signs Reviewed: Yes - Additional Comments VITAL SIGNS: Reviewed. GENERAL: Patient is a well developed and nourished M who is lying comfortable in the stretcher. Patient is not in any acute respiratory distress. HEAD AND FACE: Normocephalic EYES: PERRLA, EOMI x 2. EARS: Hearing grossly intact. MOUTH: Oropharynx within normal limits. NECK: Supple, trachea is midline, no adenopathy, no JVD, no carotid bruit. CHEST: Symmetric, no tenderness at palpation LUNGS: Clear to auscultation bilaterally. No wheezing or crackles. CVS: Regular rate and rhythm, S1 and S2 present, no murmurs or gallops appreciated. ABDOMEN: Soft, non-tender. Bowel sounds are normal. No abdominal abnormal pulsations. EXTREMITIES: Swelling in anterior aspect of the left leg with some calf tenderness. NEURO: Alert and oriented x 3. No acute neurological deficits. Speech is normal and follows commands. SKIN: Dry and warm Lower Extremity Course/Dx - Course Course Of Treatment: The patient will be sent to ED to rule out DVT since we do not have ultrasound available. Patient prefers to go via car. The patient was found to have increase BP in UC. The patient will follow up with PCP for better control of BP. - Differential Dx/Diagnosis Provider Diagnoses: Elevated blood pressure without history of hypertension, LE edema Discharge - Discharge Plan Condition: Stable Disposition: HOME Patient Education Materials: Leg Edema (ED) Referrals: Angel Shankar MD [Primary Care Provider] - Additional Instructions: Your blood pressure was elevated during todays visit; please follow up with your primary care provider within a week for further evaluation. Patient referred to the ED for further assessment The documentation as recorded by the Med curz Gabriel accurately reflects the service I personally performed and the decisions made by , Juan Baires MD.
== END 2017-05-06 17:40 | disposition home or self-care (01) ==
LOC: UCEAST 16:43
DX: R03.0 Elevated blood-pressure reading, without diagnosis of hypertension (principal); R60.0 Localized edema
CPT/HCPCS: 99212; G0463

== ENCOUNTER 2017-05-06 19:01 | Emergency (ER) | payer OTHER ==
[2017-05-06 19:12] VITALS: BP 151/74
[2017-05-06] MEDS ORDERED: Clindamycin CAP* 150 MG PO ONE (20:11)
--- NOTE | 2017-05-06 21:06 | RAD ---
HISTORY: Left lower extremity edema status post left knee arthroplasty COMPARISONS: None relevant TECHNIQUE: Multiple transverse and longitudinal ultrasound images were obtained of the left lower extremity from the level of the common femoral vein inferiorly through to the infrapopliteal veins using grayscale, color Doppler, and spectral Doppler imaging with and without compression and with augmentation. Comparison images were obtained of the contralateral common femoral vein. FINDINGS: VEINS: The venous system of the left lower extremity is compressible throughout its course, with normal flow on color Doppler imaging and normal response to augmentation on spectral Doppler imaging. SOFT TISSUES: Unremarkable. OTHER FINDINGS: None. IMPRESSION: NO LEFT LOWER EXTREMITY DEEP VEIN THROMBOSIS
--- NOTE | 2017-05-06 21:34 | ED ---
Ana Luisa Ziegler Julia, scribed for Jenny Perez MD on 05/06/17 at 2015 . Skin Complaint - HPI Summary HPI Summary: This patient is a 61 year old M presenting to [facility] from [facility] for and US accompanied by with a chief complaint of eurythmic and painful spot on his L quinonez since yesterday at 19:00. Patient reports swelling. Patient denies fever, groin pain, and calf pain. The patient rates the pain 5/10 in severity. Patient had a total L knee replacement on 04/28/17. He is currently taking 325mg of ASA twice a day. He is taking Tylenol and OxyContin for pain. - History of Current Complaint Chief Complaint: EDGeneral Time Seen by Provider: 05/06/17 20:01 Stated Complaint: RED SPOT ON LT LEG Hx Obtained From: Patient Onset/Duration: Started Hours Ago, Still Present Skin Exposure Onset/Duration: Hours Ago Timing: Constant, Lasting Hours Pain Intensity: 5 Pain Scale Used: 0-10 Numeric Skin Location: Other: - LLE quinonez Character: Swelling, Redness, Painful Related History: Diabetes, Other: - recent surgery - Additional Pertinent History Primary Care Physician: [id number] - Allergy/Home Medications Allergies/Adverse Reactions: Allergies Allergy/AdvReac Type Severity Reaction Status Date / Time HAY FEVER AdvReac Mild Runny Nose Uncoded 05/06/17 17:14 PMH/Surg Hx/FS Hx/Imm Hx Endocrine/Hematology History: Reports: Hx Diabetes Denies: Hx Bone Marrow Disease, Hx Sickle Cell Disease Cardiovascular History: Reports: Hx Hypertension, Other Cardiovascular Problems/ Disorders - RLL NODULE ON CXR/03/2012/ CT REVEALS SCAR FROM PRIOR INFECTION Denies: Hx Pacemaker/ICD Respiratory History: Reports: Hx Sleep Apnea - DX LATE 1989 OR 1999 GI History: Reports: Hx Irritable Bowel - PATIENT REPORTS 20 YEARS AGO, Other GI Disorders - adrenal GLAND REMOVED LEFT History: Reports: Hx Kidney Stones - rt ureteral calculi CURRENT STONE LEFT KIDNEY, Other Problems/Disorders - CURRENT ISSUE REASON FOR SURGERY Denies: Hx Renal Disease Musculoskeletal History: Reports: Hx Arthritis - GENERALIZED Denies: Other Musculoskeletal History Sensory History: Reports: Hx Cataracts - BILAT, Hx Contacts or Glasses - GLASSES Denies: Hx Hearing Aid Opthamlomology History: Reports: Hx Cataracts - BILAT, Hx Contacts or Glasses - GLASSES Neurological History: Reports: Other Neuro Impairments/Disorders - BILAT FEET AND HANDS Psychiatric History: Reports: Hx Anxiety - IMPROVED, Hx Depression - IMPROVED Denies: Hx Panic Disorder - Surgical History Surgery Procedure, Year, and Place: LEFT ADRENAL GLAND REMOVED 2013 [facility]. LEFT ACHILLES TENDON REPAIR 6 YRS AGO [facility] [place]. TONSILS CHILD. RIGHT KIDNEY STONE-[facility] [place], SEPTEMBER 2012. MENESCUS REPAIR 2016 [facility] [place]. Total L knee replacement 04/28/17 Hx Anesthesia Reactions: No Infectious Disease History: No Infectious Disease History: Denies: Traveled Outside the [place] in Last 30 Days - Family History Known Family History: Positive: Other - colon CA - father, thyroid disorder - sister - Social History Alcohol Use: Occasionally Alcohol Amount: 1 PER WEEK Substance Use Type: Reports: Prescribed Smoking Status (MU): Never Smoked Tobacco Have You Smoked in the Last Year: No Review of Systems Negative: Fever Negative: Myalgia - groin or calf pain Positive: Rash - LLE quinonez wiht swelling and redness All Other Systems Reviewed And Are Negative: Yes Physical Exam - Summary Physical Exam Summary: VITAL SIGNS: Reviewed. GENERAL: Patient is a well-developed and nourished (MALE OR FEMALE) who is lying comfortable in the stretcher. Patient is not in any acute respiratory distress. HEAD AND FACE: No signs of trauma. No ecchymosis, hematomas or skull depressions. No sinus tenderness. EYES: PERRLA, EOMI x 2, No injected conjunctiva, no nystagmus. EARS: Hearing grossly intact. Ear canals and tympanic membranes are within normal limits. MOUTH: Oropharynx within normal limits. NECK: Supple, trachea is midline, no adenopathy, no JVD, no carotid bruit, no c- spine tenderness, neck with full ROM. CHEST: Symmetric, no tenderness at palpation LUNGS: Clear to auscultation bilaterally. No wheezing or crackles. CVS: Regular rate and rhythm, S1 and S2 present, no murmurs or gallops appreciated. ABDOMEN: Soft, non-tender. No signs of distention. No rebound no guarding, and no masses palpated. Bowel sounds are normal. EXTREMITIES: FROM in all major joints, no cyanosis or clubbing. LLE has pitting edema. Sutures at left knee from recent incision are in place and do not reveal infection or oozing. There is 3 inch and 1.5 inch of redness and swelling over skin on LLE quinonez NEURO: Alert and oriented x 3. No acute neurological deficits. Speech is normal and follows commands. SKIN: Dry and warm Triage Information Reviewed: Yes Vital Signs On Initial Exam: Initial Vitals Temp Pulse Resp BP Pulse Ox 97.2 F 116 20 151/74 98 05/06/17 19:08 05/06/17 19:08 05/06/17 19:08 05/06/17 19:08 05/06/17 19:08 Vital Signs Reviewed: Yes Diagnostics - Vital Signs Vital Signs Temp Pulse Resp BP Pulse Ox 05/06/17 19:08 97.2 F 116 20 151/74 98 - Laboratory Lab Statement: Any lab studies that have been ordered have been reviewed, and results considered in the medical decision making process. - Additional Comments Diagnostic Additional Comments: A Venous US of the LLE reveals: NO LEFT LOWER EXTREMITY DEEP VEIN THROMBOSIS. Course/Dx - Course Course Of Treatment: Patient presnts with eurythmic and painful spot on his L quinonez since yesterday at 19:00. Patient reports swelling. Patient denies fever. Patient ahd a total L knee replacement on 04/28/17. Venous US revealed no DVT. Patient is given Clindamycin. - Diagnoses Provider Diagnoses: Cellulitis Discharge - Discharge Plan Condition: Stable Disposition: HOME Prescriptions: Clindamycin Cap(NF) [Clindamycin Cap 300 mg Cap(NF)] 300 mg PO Q6H #30 cap Patient Education Materials: Cellulitis (ED) Referrals: Angel Shankar MD [Primary Care Provider] - 2 Days Additional Instructions: RETURN TO THE EMERGENCY DEPARTMENT FOR CHANGING OR WORSENING SYMPTOMS. The documentation as recorded by the Ana Luisa cruz Julia accurately reflects the service I personally performed and the decisions made by , Jenny Perez MD.
== END 2017-05-06 21:30 | disposition home or self-care (01) ==
LOC: ED 19:01
DX: L03.116 Cellulitis of left lower limb (principal); Z96.652 Presence of left artificial knee joint
CPT/HCPCS: 99282; A9270-GY

== ENCOUNTER 2018-09-20 20:59 | Emergency (ER) | payer OTHER ==
[2018-09-20] MEDS ORDERED: Lidocaine 2% EPI 1:200000 MPF* 10 ML VIAL INJ ONE (21:09)
[2018-09-20] MEDS ORDERED: Bupivacaine 0.5% W/EPI SDV* 10 ML VIAL INJ ONE (21:09)
[2018-09-20] MEDS ORDERED: Cephalexin CAP* 500 MG PO ONE ×2 (21:10→22:09)
[2018-09-20] MEDS ORDERED: LORazepam TAB(*) 1 MG PO ONE (21:10)
[2018-09-20] MEDS ORDERED: Bupivacaine 0.5% W/EPI SDV* 30 ML VIAL ONE (21:12)
[2018-09-20] MEDS ORDERED: Lidocaine 2% w/ EPI 1:200,000* 20 ML VIAL ONE (21:12)
--- NOTE | 2018-09-20 21:12 | ED ---
Upper Extremity Pain - HPI Summary HPI Summary: A 63 y/o male presents to [facility] with a chief complaint of a right index finger laceration from an anchor of a boat at around 20:00 09/20/18. At triage he rated his pain as an 8/10 in severity. The patient has a Hx of DM. He denies taking blood thinners. - History of Current Complaint Chief Complaint: EDExtremityUpper Stated Complaint: "RT FINGER LACERATION PER PT" Time Seen by Provider: 09/20/18 21:06 Hx Obtained From: Patient Mechanism Of Injury: Other - from an anchor Onset/Duration: Started Minutes Ago, Still Present Timing: Constant, Lasting Minutes Severity Initially: Severe Severity Currently: Severe Pain Location: Finger Character: Unable to Describe Aggravating Factor(s): Nothing Alleviating Factor(s): Nothing Associated Signs & Symptoms: Negative: Fever - Allergies/Home Medications Allergies/Adverse Reactions: Allergies Allergy/AdvReac Type Severity Reaction Status Date / Time HAY FEVER AdvReac Mild Runny Nose Uncoded 05/06/17 17:14 Home Medications: Home Medications Multivitamin [Multiple Vitamins] 1 tab PO DAILY 09/20/18 [History Confirmed 07/06] PMH/Surg Hx/FS Hx/Imm Hx Endocrine/Hematology History: Reports: Hx Diabetes Denies: Hx Bone Marrow Disease, Hx Sickle Cell Disease Cardiovascular History: Reports: Hx Hypertension, Other Cardiovascular Problems/ Disorders - RLL NODULE ON CXR/03/2012/ CT REVEALS SCAR FROM PRIOR INFECTION Denies: Hx Pacemaker/ICD Respiratory History: Reports: Hx Sleep Apnea - DX LATE 1989 OR 1999 GI History: Reports: Hx Irritable Bowel - PATIENT REPORTS 20 YEARS AGO, Other GI Disorders - adrenal GLAND REMOVED LEFT History: Reports: Hx Kidney Stones - rt ureteral calculi CURRENT STONE LEFT KIDNEY, Other Problems/Disorders - CURRENT ISSUE REASON FOR SURGERY Denies: Hx Renal Disease Musculoskeletal History: Reports: Hx Arthritis - GENERALIZED Denies: Other Musculoskeletal History Sensory History: Reports: Hx Cataracts - BILAT, Hx Contacts or Glasses - GLASSES Denies: Hx Hearing Aid Opthamlomology History: Reports: Hx Cataracts - BILAT, Hx Contacts or Glasses - GLASSES Neurological History: Reports: Other Neuro Impairments/Disorders - BILAT FEET AND HANDS Psychiatric History: Reports: Hx Anxiety - IMPROVED, Hx Depression - IMPROVED Denies: Hx Panic Disorder - Surgical History Surgery Procedure, Year, and Place: LEFT ADRENAL GLAND REMOVED 2013 [facility]. LEFT ACHILLES TENDON REPAIR [place] [facility] [place]. [place] [place]. MENESCUS REPAIR 2016 [facility] [place]. Total L knee replacement 04/28/17 Hx Anesthesia Reactions: No Infectious Disease History: No Infectious Disease History: Denies: Traveled Outside the [place] in Last 30 Days - Family History Known Family History: Positive: Other - colon CA - father, thyroid disorder - sister - Social History Alcohol Use: Occasionally Alcohol Amount: 1 PER WEEK Substance Use Type: Reports: Prescribed Smoking Status (MU): Never Smoked Tobacco Have You Smoked in the Last Year: No Review of Systems Negative: Fever Positive: Other - positive: Right finger laceration All Other Systems Reviewed And Are Negative: Yes Physical Exam - Summary Physical Exam Summary: Appearance: Well-appearing, Well-nourished, lying in bed comfortably Skin: Warm, dry, no obvious rash Eyes: sclera anicteric, no conjunctival pallor ENT: mucous membranes moist, pharynx appears normal Neck: Supple, nontender Respiratory: Clear to auscultation, no signs of respiratory distress Cardiovascular: Normal S1, S2. No murmurs. Normal distal pulses in tibial and radial bilaterally. Abdomen: Soft, nontender, normal active bowel sounds present Musculoskeletal: right index finger circumferential laceration involving distal phalanx involving sparing of ulnar side, connecting isthmus of tissue approximate 1cm. Distal fragment is pink and appears well perused. Nail intact but avulsed from nail matrix. Neurological: A&Ox3, awake and alert, mentation is normal, speech is fluent and appropriate Psychiatric: affect is normal, does not appear anxious or depressed Triage Information Reviewed: Yes Vital Signs On Initial Exam: Initial Vitals Temp Pulse Resp BP Pulse Ox 97.8 F 94 22 168/93 99 09/20/18 21:02 09/20/18 21:02 09/20/18 21:02 09/20/18 21:02 09/20/18 21:02 Vital Signs Reviewed: Yes Procedures - Laceration/Wound Repair 1 Location: Other - right index finger Description: Linear Anesthesia: Lido - 2.0% with epi, Marcaine - 0.5%, Epi Length, Depth and Shape: circumferential approx 4 cm laceration Betadine Prep?: No Irrigated w/ Saline (ccs): 200 Laceration/Wound Explored: clean Closure: Single Layer Suture Type: Nylon Number of Sutures: 5 - approximated nail to nail matrix, 80% circumferential laceration. Sterile Dressing Applied?: Yes - xeroform and gauze dressing applied Diagnostics - Vital Signs Vital Signs Temp Pulse Resp BP Pulse Ox 09/20/18 21:02 97.8 F 94 22 168/93 99 - Laboratory Lab Statement: Any lab studies that have been ordered have been reviewed, and results considered in the medical decision making process. - Radiology Finger x-ray Radiology Interpretation Completed By: ED Physician Summary of Radiographic Findings: distal phalanx fracture. Pending official imaging report. Course/Dx - Course Course Of Treatment: A 63 y/o male presents to [facility] with a chief complaint of a right index finger laceration from an anchor of a boat at around 20:00 . The physical exam revealed right index finger circumferential laceration involving distal phalanx involving sparing of ulnar side, connecting isthmus of tissue approximate 1cm. Distal fragment is pink and appears well perused. Nail intact but avulsed from nail matrix. In the ED course the patient was given Keflex PO, and Ativan PO. Finger x-ray showed distal phalanx fracture. Digital block with 2% Lidocaine and 0.5% Bupivacaine both with epi. 5 Sutures were placed, approximated nail to nail matrix, 80% circumferential laceration. Discussed case with Dr. Cardenas who agrees with what we have done and wants to follow up with the patient on 09/25/18. He will be discharged with presciptions for Vicodin and Keflex and follow up with Dr. Cardenas. The patient is agreeable with this plan. 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 Discharge - Sign-Out/Discharge Documenting (check all that apply): Patient Departure - DC Patient Received Moderate/Deep Sedation with Procedure: No - Discharge Plan Condition: Good Disposition: HOME Prescriptions: Cephalexin CAP* [Keflex CAP*] 500 mg PO QID #20 cap Hydrocodone/Acetaminophen [Vicodin 5-300 mg Tablet] 1 each PO Q4HR PRN #15 tablet MDD 6 PRN Reason: Pain Patient Education Materials: Finger Laceration (ED) Referrals: Hal Cardenas MD [Medical Doctor] - Additional Instructions: Dr. Cardenas would like to see you in the office on Monday. You may need to change the dressing at some point over the weekend. To do that, have a basin of clean, room temperature tap water ready along with some hydrogen peroxide. Gently unwrap the dressing until you get to the xeroform gauze (yellow) and gently tease that off. You may need to remove some blood clots and scab, which is where the water and peroxide will be helpful. Gently clean the wound and then rewrap it generously. It should be sore, but not terribly painful, so if the pain gets a lot worse we should check you before Monday. Take the antibiotic as prescribed. - Billing Disposition and Condition Condition: GOOD Disposition: Home - Attestation Statements Document Initiated by aMriah: Yes Documenting Scribe: David Bellamy Provider For Whom Mariah is Documenting (Include Credential): Elmer Bryant MD Scribe Attestation: I, David Bellamy, scribed for Elmer Bryant MD on 09/21/18 at 0331. Scribe Documentation Reviewed: Yes Provider Attestation: The documentation as recorded by the David cruz accurately reflects the service I personally performed and the decisions made by me, Elmer Bryant MD Status of Scribe Document: Viewed
[2018-09-20] MEDS ORDERED: Lidocaine 2% w/ EPI 1:200,000* 20 ML VIAL INJ ONE (21:56)
[2018-09-20] MEDS ORDERED: Bupivacaine 0.5% W/EPI SDV* 30 ML VIAL INJ ONE (21:56)
[2018-09-20 22:21] VITALS: BP 135/76
== END 2018-09-20 22:29 | disposition home or self-care (01) ==
LOC: ED 20:59
DX: S61.210A Laceration without foreign body of right index finger without damage to nail, initial encounter (principal); W45.8XXA Other foreign body or object entering through skin, initial encounter; Y92.9 Unspecified place or not applicable; E11.9 Type 2 diabetes mellitus without complications; I10 Essential (primary) hypertension
CPT/HCPCS: 12002; 73140; 96374; 96375; 99283; A9270-GY

== ENCOUNTER 2018-11-19 22:19 | Emergency (ER) | payer OTHER ==
--- OUTSIDE RECORDS SUMMARY | 2018-11-19 22:37 | XMS REPORT | Continuity of Care Document ---
:1955 External Reference #:[id number] Author Name Frank Myrick Care Team Providers Name Role Phone Juan Farley III, MD Primary Care Physician Unavailable Payers Date Identification Numbers Payment Provider Subscriber Effective: 2010 Policy Number: [id number] [facility] Carlos Hanks Group Number: [id number] [address] PayID: [id number] [place] [address] Effective: 2007 Policy Number: [id number] [employer] Carlos Hanks Expires: 2010 Group Number: [id number] [address] PayID: [id number] [place] [address] Expires: 2007 Policy Number: [id number] [facility] Carlos Hanks PayID: [id number] [address] [place] [address] Problems Active Problems Provider Date Benign secondary hypertension Angel Shankar M.D.,FACP Onset: 03/07/2007 Hyperaldosteronism Angel Shankar M.D.,FACP Onset: 03/07/2007 Type 2 diabetes mellitus Angel Shankar M.D.,FACP Onset: 03/07/2007 Obstructive sleep apnea syndrome Angel Shankar M.D.,FACP Onset: 2008 Mixed hyperlipidemia Angel Shankar M.D.,FACP Onset: 06/11/2008 Localized, primary osteoarthritis Rosina Mcneil M.D. Onset: 03/31/2017 Arthroplasty of knee Rosina Mcneil M.D. Onset: 05/19/2017 Family history of cancer of colon Angel Shankar M.D.,FACP Onset: 2017 Note: father Inactive Problems Essential hypertension Wellington Gregorio M.D. Onset: 01/29/2016 Inactive: 05/27/2016 Type II diabetes mellitus uncontrolled Wellington Gregorio M.D. Onset: 2015 Inactive: 05/27/2016 Resolved Problems Neuralgia Neuritis & Radiculitis Angel Shankar M.D.,FACP Onset: 2006 Unspecified Resolved: 02/16/2018 Family History Date Family Member(s) Observation Comments General Stroke General Cancer Father due to Cancer, () - early Colon 60s? Mother Hyperthyroidism Mother 86 : (age Mother due to Stroke 86 Years) Mother Peripheral Vascular Disease (PVD) Mother Stroke Siblings 2 First Brother Alive And Well First Sister Thyroid Disease Paternal Grandmother Thyroid Disease Social History Type Date Description Comments Sex Unknown Marital Status Significant Other Lives With Occupation Currently Working computers at [employer] Tobacco Use Start: Unknown Never Smoked Cigarettes ETOH Use 02/16/2018 Rarely consumes alcohol Recreational Drug Use Denies Drug Use Tobacco Use Start: Unknown Patient has never smoked Smoking Status Reviewed: 10/22/18 Patient has never smoked Exercise Type/Frequency Exercises regularly gym 4 times a week for 30-40 min of cardio, some weight machines Allergies, Adverse Reactions, Alerts Description No Known Drug Allergies Medications Active Medications SIG Qnty Indications Ordering Date Provider Trulicity inject 2ml Angel Rubio 02/16/2018 1.5mg/0.5ML subcutaneously [place], Solution Pen-Inject weekly JOSEPH TopeteP Shingrix 0.5 milliliters 2units Angel Rubio 10/20/2017 50mcg intramuscular now [place], Suspension Rec and 2-3 months later Efrem,FACP repeat Lisinopril take 1 tablet by 90tabs E11.9 Juan Mcgovern 12/27/2016 5mg mouth every day Efrem Farley Tablets Toujeo Solostar 75 units daily or as 9ml E11.65 Cornell Santana, 07/29/2015 directed [employer] 300Unit/ML Solution Pen-Inject Onetouch Ultra use twice daily to 1units E11.9 Angel Rubio 04/01/2015 System test glucose [place], W/Device Kit Efrem,FACP Onetouch Ultra Blue test up to 2 times a 100units E11.9 Angel Rubio 04/01 day or as directed Destiny Shankar M.D.,FACP Cialis every day as needed 14tabs E11.9 Juan Froilan 04/01/2015 10mg Tablets Efrem Farley Pen [place] 5/16" use with victoza and 100units Angel Rubio 01/30/2015 31G toujeo subq everyday [place], X 8 mm [facility] Efrem,FACP Cpap Mask And cpap supplies - 1units G47.33 Angel Rubio 01/16/2015 Supplies headgear, cushion, Raad, Device tubing, filters, for Efrem,FACP sleep apnea Metformin HCL 1 by mouth daily 90tabs E11.9 Juan E. 500mg Efrem Farley Tablets Magnesium 1 by mouth twice a 90tabs Juan E. 400mg day Efrem Farley Tablets Victoza inject 1.8mg daily Unknown 18mg/3ML as directed Solution Pen-Inject Amlodipine Besylate Take 1 Tablet By 30tabs I15.8 Juan E. Mouth Every Day Efrem Farley 10mg Tablets Repaglinide qac tid Unknown 1mg Tablets Onetouch Verio Flex use as directed Unknown Bloodglucose Monitoring System w/Device Kit Co Q10 1 by mouth every 90caps Unknown 100mg Capsules other day Vitamin D 1 qod Unknown 5000Unit Tablets Vitamin C 1 po qd Unknown 1000mg Tablets Multivitamins 1 tablet daily Unknown Tablet Nortriptyline HCL Take 1 To 2 Capsules 180caps Juan E. By Mouth AT Bedtime Efrem Farley 25mg Capsules as Needed History Medications Meloxicam 1 by mouth every day 30tabs M25.562 Rosina 05/11/2018 - 15mg Tablets Efrem Mcneil 09/30/2018 Trulicity 1 pens sc weekly for 2units Angel Rubio 02/16/2018 - 0.75mg/0.5ML 2 wks then switch to [place], 03/03/2018 Solution Pen-Inject 1.5 M.DCHIDI Zarate Doxycycline Hyclate 2 tabs PO x 1 dose 2tabs Angel Rubio 07/28/2017 - [place], 07/30/2017 100mg Tablets JOSEPH TopeteP Ambien take one tab one 10tabs Z96.65Jovanny Rosina 06/16/2017 - 5mg Tablets hour prior to bed as Efrem Mcneil 05/10/2018 needed. Tramadol HCL 1 tab every 6 hours 60tabs Rosina 06/08/2017 - 50mg as needed for pain Efrem Mcneil 07/19/2017 Tablets Cyclobenzaprine HCL take one tablet by 60tabs Z96.652 Rosina 05/12/2017 - 5mg mouth up to three Efrem Mcneil 08/17/2017 Tablets times a day for pain. Azithromycin Take two tablets by 6tabs Z96.65Jovanny Rosina 05/12/2017 - 250mg mouth on day 1, Efrem Mcneil 06/08/2017 Tablets afterward take 1 tablet daily. Take antibiotics for 5 days total. Coumadin take 1-3 tabs by 90tabs Rosina 04/24/2017 - 2mg Tablets mouth at 5 at night Efrem Mcneil 05/11/2017 as directed Percocet 1-2 by mouth every 90tabs Rosina 04/24/2017 - 5-325mg 4-6 hours as needed Efrem Mcneil 07/19/2017 Tablets for post-op pain Colace 1 tab by mouth 2-3 90caps Rosina 04/24/2017 - 100mg Capsules times a day as Efrem Mcneil 08/17/2017 needed Trulicity inject 2ml E11.9 Angel Rubio 01/30/2017 - 1.5mg/0.5ML subcutaneously [place], 04/13/2017 Solution Pen-Inject weekly CHIDI Topete Amlodipine Besylate take 1 tablet by 90tabs I15.8 Angel Rubio 05/27/2016 - 5mg mouth every day [place], 04/04/2018 Tablets M.Kari.,FACP Doxycycline Hyclate 2 tablets by mouth 2tabs Angel Rubio 02/02/2016 - [place], 05/27/2016 100mg Tablets M.D.,FACP Ibuprofen take 1 pill by mouth 45tabs Rosina 01/06/2016 - 600mg Tablets every 6 hours as Tarun, M.DElliot 04/13/2017 needed [place] 1 by mouth every 4 20tabs Jeison Lugo, 12/29/2015 - 5-325mg Tablets to 6 hours as needed M.D. 03/20/2016 Ibuprofen prn 90tabs M25.562 [place] 09/15/2015 - 600mg Tablets [place], 03/30/2016 MCapri Bydureon inject 2 mg sc 4units Angel Rubio 04/01/2015 - 2mg Pen weekly [place], 04/01/2015 Efrem,FACP Victoza inject 6units E11.9 Angel Rubio 04/01/2015 - 18mg/3ML subcutaneously 1.2mg [place], 01/30/2017 Solution Pen-Inject daily M.DElliot,FACP Bydureon inject 2 mg sc 4units E11.9 Angel Rubio 02/09/2015 - 2mg Pen weekly [place], 04/01/2015 Efrem,FACP Cpap nightly, G47.33 Angel Rubio 01/16/2015 - Device [place], 10/20/2017 Efrem,FACP Victoza inject 1.2 mg under 27ml E11.9 Angel Rubio 01/16/2015 - 18mg/3ML the skin daily [place], 04/01/2015 Solution Pen-Inject Eliane.Joanne,FACP Naproxen 1 tablet by mouth 30tabs Michelet 08/28/2014 - 250mg Tablets twice a day as Elida BorjaDElliot 04/29/2015 needed pain, with foods Cyclobenzaprine HCL 1 tablet by mouth 30tabs Michelet 08/28/2014 - 5mg three times a day as Borja M.D. 01/16/2015 Tablets needed Sulfamethoxazole/Trim 1 tab po bid x 10 20tabs 461.0 Edouard Su, 2013 - ethoprim DS days [employer]ITIONER 12/03/2013 800-160mg Tablets Repaglinide take 1 tablet three 270tabs E11.9 Angel Rubio 06/24/2013 - 1mg Tablets times a day with [place], 01/16/2015 meals MCapri,FACP Amoxicillin/Clavulana by mouth twice a day 14tabs 466.0 Angel Rubio 06/19 - te Potassium [place], 11/01/2013 875-125mg Efrem,FACP Tablets Lisinopril take 1 tablet daily 90tabs E11.9 Angel Rubio 11/07/2012 - 5mg Tablets [place], 12/27/2016 Efrem,FACP Tamsulosin HCL 1 po qd 10caps 599.89 Steffanie Glover, 08/17/2012 - 0.4mg Efrem 06/19/2013 Capsules Ventolin HFA 2 puffs po qid prn 1units 466.0 Delilah 03/08/2012 - Oleg, 08/06/2012 108(90Base) mcg/ac N.P. Aerosol Tessalon Perles 100 mg po tid prn 100mg 466.0 Delilah 03/08/2012 - 100mg Oleg, 08/06/2012 Capsules N.P. Avelox 1 qd x 7 days 7tabs 466.0 Angel Rubio 03/08/2012 - 400mg Tablets [place], 05/09/2012 Efrem,FACP Azithromycin two tabs day one, 6tabs Juan Mcgovern 02/13/2012 - 250mg one daily till huyen Farley M.D. 02/18/2012 Tablets Levitra qd prn 20tabs 607.84 Angel Rubio 02/06/2012 - 10mg Tablets [place], 02/06/2012 Efrem,FACP Viagra 1 by mouth as needed 10tabs E11.9 Angel Rubio 02/06/2012 - 50mg Tablets [place], 04/01/2015 Efrem,FACP Magnesium-Oxide 1 po qd 30tabs V70.0 Angel Rubio 12/31/2010 - 400mg [place], 08/26/2014 Tablets Efrem,FACP Potassium Chloride ER Take 1 Tablet Daily 90tabs Angel Rubio 11/29/2010 - Raad, 02/06/2012 20Meq Tablets ER Efrem,FACP Aspirin 1 po qd 50tabs Angel Rubio 07/06/2010 - 81mg Tablets DR Shankar, 04/13/2017 Efrem,FACP Freestyle Lite Test Use 4 Times A Day 3Months Angel Rubio 06/18/2010 - Na And as Needed Raad, 11/13/2015 Strip Efrem,FACP Eplerenone 2tabs po bid 360tabs Angel Rubio 05/21/2010 - 50mg Tablets Raad, 07/06/2010 Efrem,FACP Augmentin 1 tablet bid po x 14 28tabs Angel Rubio 03/08/2010 - 875-125mg days Raad, 05/21/2010 Tablets Efrem,FACP [place] po qam 30tabs 255.10 Angel Rubio 12/10/2009 - 4mg Tablets Raad, 02/19/2010 Efrem,FACP Eplerenone Take 2 Tablets Twice 360tabs Angel Rubio 11/17/2009 - 50mg Tablets A Day Raad, 05/09/2012 Efrem,FACP [place] po qd 30tabs 255.10 Angel Rubio 10/27/2009 - 8mg Tablets Raad, 12/10/2009 Efrem,FACP Eplerenone 2o bid 120tabs Angel Rubio 10/27/2009 - 50mg Tablets Raad, 11/17/2009 Efrem,FACP Red Yeast Rice po qday 60caps 272.2 Angel Rubio 10/27/2009 - Extract [place], 08/26/2014 600mg Capsules Efrem,FACP Amlodipine Besylate take 1 tablet daily 90tabs I15.8 Angel Rubio 2008 - [place], 05/27/2016 10mg Tablets Efrem,FACP Amlodipine Besylate 1 po qd 90tabs 405.19 Angel Rubio 10/14/2008 - 5mg Raad, 12/16/2008 Tablets Efrem,FACP Prandin Take 1 Tablet Three 30tabs 250.00 Juan Mcgovern 10/14/2008 - 1mg Tablets Times A Day With Efrem Farley 06/24/2013 Meals Freestyle Flash as directed One 250.00 Angel Rubio 06/11/2008 - Glucose Monitor [place], 07/06/2010 Efrem,FACP Januvia 1 po qd 90tabs 250.00 Angel Rubio 06/11/2008 - 100mg Tablets Raad, 09/11/2008 Efrem,FACP Amoxicillin/Clavulana 1 tab po bid x 10 20tabs E906.3 Thananart, 2008 - te Potassium days Efrem Smith 06/11/2008 875mg Tablets Diltiazem HCL po qd 90caps 405.19 Angel Rubio 06/26/2007 - 240mg [place], 10/14/2008 Caps ER 24HR Efrem,FACP Tekturna po qam 90tabs 255.10 Angel Rubio 05/28/2007 - 150mg Tablets Raad, 06/26/2007 Efrem,FACP Cephalexin Unknown - 500mg 10/21/2018 Capsules Moxifloxacin HCL place one gtt L eye Unknown - 0.5% four times daily 09/30/2018 Solution Ketorolac one drop L eye four Unknown - Tromethamine times daily 09/30/2018 0.5% Solution Difluprednate 0.05% place one gtt L eye Unknown - Ophthalmis Emulsion four times daily 09/30/2018 Metformin HCL take 2 tablets by 360tabs E11.9 Angel Rubio - 500mg mouth twice a day [place], 04/04/2018 Tablets Efrem,FACP Aspirin take 1 by mouth bid Unknown - 325mg Tablets 08/17/2017 Glucosamine Unknown - 08/17/2017 Victoza inject 1.2 mg under E11.9 Unknown - 18mg/3ML the skin daily 02/16/2018 Solution Pen-Inject Glucosamine Unknown - 04/13/2017 Magnesium Citrate 200mg in the am and Unknown - 100mg pm 04/04/2018 Tablets [place] Unknown - 08/26/2014 Nortriptyline HCL Take 1 Capsule AT 90caps Angel D. - 25mg Bedtime as Needed [place], 03/05/2012 Capsules Art.,FACP Lisinopril Take 1 Tablet Daily 90tabs Angel D. - 40mg Tablets [place], 05/09/2012 M.Joanne,FACP Asa 1 po qd Unknown - 81mg 07/06/2010 Freestyle Test Strips Use as directed prn 100units Angel D. - bid [place], 07/06/2010 Strips Eliane.Joanne,FACP Rozerem Use prn Sleep 90tabs Angel D. - 8mg Tablets [place], 07/06/2010 M.Joanne,FACP Inspra 1 PO bid 180tabs Angel D. - 50mg Tablets [place], 10/27/2009 M.Joanne,FACP Diltiazem CD 1 PO qd 90caps Angel D. - 120mg Caps [place], 06/26/2007 ER 24HR M.D.,FACP K-Dur po qday 90tabs Angel D. - 20Meq Tablets ER [place], 11/29/2010 M.Kari.,FACP [place] 1 table po qd 90tabs 255.10 Angel Rubio - 16mg Tablets [place], 10/27/2009 MCapri,FACP Medications Administered in Office Medication SIG Qnty Indications Ordering Provider Date Hyaluron Or Jeison Lugo M.D. 06/08/2016 Enzo,Orthovisc,For Intra-Articular Inj Per Dose Injection Hyaluron Or Jeison Lugo M.D. 06/02/2016 EnzoOrthovisthienFor Intra-Articular Inj Per Dose Injection Hyaluron Or Jeison Lugo M.D. 05/25/2016 EnzoOrthovisc,For Intra-Articular Inj Per Dose Injection Depomedrol 40MG Jeison Lugo M.D. 03/23/2016 Injection Immunizations CPT Code Status Date Vaccine Lot # [id number] Given 01/30/2015 Flu Vaccine Split Virus Preservative Free For Indiv 3Yr Older 85213 Given 12/20/2013 Flu Vaccine Split Virus Preservative Free For Indiv 3Yr Older 96851 Given 11/01/2013 Pneumonia Vaccine [id number] Given 02/06/2012 Fluvirin Im 3Yrs And Older [id number] 04193 Given 01/28/2011 Influenza Virus 3Yrs & Over 51793 Given 12/31/2010 Tdap - Tetanus/Diptheria/Acellular Pertussis [id number] 94744 Given 01/28/2010 Influenza Virus 3Yrs & Over 88949 Given 03/06/2009 Influenza Virus 3Yrs & Over [id number] 64153 Given 12/30/2005 Pneumonia Vaccine [id number] Vital Signs Date Vital Result Comment 10/22/2018 3:41pm Height 71 inches 5'11" Weight 237.00 lb BP Systolic 148 mmHg BP Diastolic 60 mmHg Respiratory Rate 16 /min Body Temperature 96.4 F Pain Level 1 BMI (Body Mass Index) 33.1 kg/m2 10/03/2018 3:00pm Height 71 inches 5'11" Weight 237.00 lb Heart Rate 94 /min BP Systolic 146 mmHg BP Diastolic 74 mmHg Respiratory Rate 16 /min Body Temperature 98.2 F Pain Level 2 BMI (Body Mass Index) 33.1 kg/m2 10/01/2018 4:22pm Height 71 inches 5'11" Weight 237.00 lb BP Systolic 124 mmHg BP Diastolic 72 mmHg Body Temperature 97.7 F BMI (Body Mass Index) 33.1 kg/m2 09/26/2018 1:59pm Height 71.5 inches 5'11.50" Weight 238.00 lb BP Systolic 150 mmHg BP Diastolic 58 mmHg Respiratory Rate 16 /min Body Temperature 98.3 F Pain Level 3 BMI (Body Mass Index) 32.7 kg/m2 07/02/2018 4:15pm Height 71.5 inches 5'11.50" Weight 238.00 lb BP Systolic 140 mmHg BP Diastolic 76 mmHg Body Temperature 97.5 F Pain Level 1 BMI (Body Mass Index) 32.7 kg/m2 05/11/2018 3:24pm Height 72 inches 6'0" Weight 237.00 lb BP Systolic 136 mmHg BP Diastolic 70 mmHg Body Temperature 98.5 F BMI (Body Mass Index) 32.1 kg/m2 02/16/2018 2:19pm Height 71 inches 5'11" Weight 237.00 lb Heart Rate 105 /min BP Systolic Sitting 150 mmHg BP Diastolic Sitting 66 mmHg BP Systolic Recheck 146 mmHg BP Diastolic Recheck 80 mmHg Body Temperature 98.2 F O2 % BldC Oximetry 95 % BMI (Body Mass Index) 33.1 kg/m2 10/20/2017 2:43pm Height 72 inches 6'0" Weight 238.00 lb Heart Rate 100 /min BP Systolic 140 mmHg BP Diastolic 62 mmHg BP Systolic Recheck 122 mmHg BP Diastolic Recheck 60 mmHg O2 % BldC Oximetry 98 % BMI (Body Mass Index) 32.3 kg/m2 08/18/2017 3:01pm Height 72 inches 6'0" Weight 237.00 lb Heart Rate 100 /min BP Systolic 134 mmHg BP Diastolic 66 mmHg Pain Level 2 BMI (Body Mass Index) 32.1 kg/m2 07/19/2017 9:51am Weight 242.00 lb Heart Rate 100 /min BP Systolic Sitting 140 mmHg BP Diastolic Sitting 70 mmHg Body Temperature 97.7 F O2 % BldC Oximetry 96 % 07/10/2017 3:20pm Height 72 inches 6'0" Heart Rate 104 /min Respiratory Rate 20 /min Body Temperature 97.2 F Pain Level 2 06/16/2017 3:04pm Height 72 inches 6'0" Weight 238.00 lb Heart Rate 82 /min BP Systolic Sitting 134 mmHg BP Diastolic Sitting 60 mmHg Respiratory Rate 18 /min Pain Level 2 BMI (Body Mass Index) 32.3 kg/m2 06/08/2017 1:30pm Weight 238.00 lb w/boots Heart Rate 98 /min BP Systolic Sitting 130 mmHg BP Diastolic Sitting 66 mmHg Body Temperature 97.7 F O2 % BldC Oximetry 95 % 05/19/2017 9:37am Height 72 inches 6'0" Weight 235.00 lb BP Systolic 120 mmHg BP Diastolic 72 mmHg Body Temperature 97.6 F Pain Level 3 BMI (Body Mass Index) 31.9 kg/m2 05/12/2017 3:03pm Height 72 inches 6'0" Weight 235.00 lb BP Systolic 124 mmHg BP Diastolic 60 mmHg Body Temperature 97.8 F Pain Level 3 BMI (Body Mass Index) 31.9 kg/m2 04/14/2017 10:35am Height 71.5 inches 5'11.50" Weight 240.00 lb Heart Rate 88 /min BP Systolic 142 mmHg BP Diastolic 78 mmHg BMI (Body Mass Index) 33.0 kg/m2 04/13/2017 3:15pm Weight 244.12 lb Heart Rate 88 /min BP Systolic Sitting 132 mmHg BP Diastolic Sitting 78 mmHg O2 % BldC Oximetry 95 % 03/31/2017 11:14am Height 71.50 inches 5'11.50" BP Systolic 142 mmHg BP Diastolic 81 mmHg Respiratory Rate 15 /min Pain Level 2 01/30/2017 3:04pm Height 71 inches 5'11" Weight 237.00 lb Heart Rate 105 /min BP Systolic Sitting 150 mmHg BP Diastolic Sitting 70 mmHg BP Systolic Recheck 138 mmHg BP Diastolic Recheck 66 mmHg Body Temperature 98.8 F O2 % BldC Oximetry 94 % BMI (Body Mass Index) 33.1 kg/m2 09/14/2016 9:11am Height 71.5 inches 5'11.50" Weight 237.00 lb Heart Rate 90 /min BP Systolic 124 mmHg BP Diastolic 73 mmHg BMI (Body Mass Index) 32.6 kg/m2 06/16/2016 4:13pm Weight 240.00 lb Heart Rate 98 /min BP Systolic Sitting 140 mmHg BP Diastolic Sitting 74 mmHg Respiratory Rate 15 /min Body Temperature 98.2 F O2 % BldC Oximetry 98 % 06/08/2016 3:23pm Height 72 inches 6'0" Weight 249.00 lb Heart Rate 100 /min BP Systolic 130 mmHg BP Diastolic 70 mmHg Respiratory Rate 20 /min Pain Level 3 BMI (Body Mass Index) 33.8 kg/m2 06/02/2016 2:14pm Height 72 inches 6'0" Weight 249.00 lb Heart Rate 101 /min BP Systolic 138 mmHg BP Diastolic 76 mmHg Respiratory Rate 17 /min Body Temperature 97.9 F Pain Level 4 BMI (Body Mass Index) 33.8 kg/m2 05/27/2016 3:41pm Weight 249.25 lb w/ boots Heart Rate 97 /min BP Systolic Sitting 140 mmHg BP Diastolic Sitting 80 mmHg BP Systolic Recheck 142 mmHg BP Diastolic Recheck 85 mmHg Body Temperature 97.8 F O2 % BldC Oximetry 98 % 05/25/2016 3:41pm Height 72 inches 6'0" Weight 237.00 lb Heart Rate 60 /min Respiratory Rate 16 /min Pain Level 4 BMI (Body Mass Index) 32.1 kg/m2 05/04/2016 3:10pm Height 72 inches 6'0" Weight 237.00 lb Heart Rate 95 /min BP Systolic 120 mmHg BP Diastolic 78 mmHg BMI (Body Mass Index) 32.1 kg/m2 03/23/2016 3:13pm Height 72 inches 6'0" Weight 237.00 lb Pain Level 7 BMI (Body Mass Index) 32.1 kg/m2 02/17/2016 3:18pm Height 71.5 inches 5'11.50" Weight 233.00 lb Respiratory Rate 16 /min Pain Level 2 BMI (Body Mass Index) 32.0 kg/m2 01/29/2016 3:18pm Height 71.5 inches 5'11.50" Weight 233.50 lb Heart Rate 102 /min BP Systolic Sitting 142 mmHg BP Diastolic Sitting 70 mmHg Body Temperature 97.8 F O2 % BldC Oximetry 97 % BMI (Body Mass Index) 32.1 kg/m2 01/11/2016 3:23pm Weight 231.00 lb Body Temperature 98.4 F Pain Level 4 12/16/2015 3:18pm Weight 231.00 lb Heart Rate 88 /min BP Systolic Sitting 130 mmHg BP Diastolic Sitting 74 mmHg Respiratory Rate 15 /min Body Temperature 98.4 F O2 % BldC Oximetry 98 % 12/14/2015 1:46pm Height 71 inches 5'11" Weight 232.00 lb Heart Rate 104 /min BP Systolic 122 mmHg BP Diastolic 77 mmHg BMI (Body Mass Index) 32.4 kg/m2 11/30/2015 11:18am Height 70.75 inches 5'10.75" Weight 231.00 lb BP Systolic 119 mmHg BP Diastolic 64 mmHg Pain Level 5 BMI (Body Mass Index) 32.4 kg/m2 11/13/2015 2:03pm Height 71 inches 5'11" Weight 229.12 lb Heart Rate 86 /min BP Systolic Sitting 116 mmHg BP Diastolic Sitting 73 mmHg Body Temperature 98.1 F O2 % BldC Oximetry 97 % BMI (Body Mass Index) 32.0 kg/m2 09/15/2015 4:23pm Height 71 inches 5'11" Weight 227.00 lb Heart Rate 94 /min BP Systolic Sitting 128 mmHg BP Diastolic Sitting 71 mmHg Body Temperature 98.6 F O2 % BldC Oximetry 98 % BMI (Body Mass Index) 31.7 kg/m2 07/29/2015 4:13pm Height 71 inches 5'11" Weight 225.00 lb Heart Rate 106 /min BP Systolic Sitting 130 mmHg BP Diastolic Sitting 72 mmHg Body Temperature 98.5 F O2 % BldC Oximetry 98 % BMI (Body Mass Index) 31.4 kg/m2 04/29/2015 2:10pm Height 71 inches 5'11" Weight 231.00 lb Heart Rate 98 /min BP Systolic Sitting 134 mmHg BP Diastolic Sitting 76 mmHg Body Temperature 98.5 F O2 % BldC Oximetry 98 % BMI (Body Mass Index) 32.2 kg/m2 04/01/2015 1:50pm Height 71 inches 5'11" Weight 232.00 lb Heart Rate 105 /min BP Systolic Sitting 137 mmHg BP Diastolic Sitting 77 mmHg Body Temperature 98.0 F O2 % BldC Oximetry 97 % BMI (Body Mass Index) 32.4 kg/m2 01/16/2015 2:26pm Height 71 inches 5'11" Weight 235.50 lb Heart Rate 90 /min BP Systolic Sitting 146 mmHg BP Diastolic Sitting 78 mmHg Body Temperature 97.8 F O2 % BldC Oximetry 98 % BMI (Body Mass Index) 32.8 kg/m2 08/27/2014 3:13pm Height 72 inches 6'0" Weight 248.50 lb Heart Rate 102 /min BP Systolic Sitting 144 mmHg BP Diastolic Sitting 70 mmHg Body Temperature 97.7 F O2 % BldC Oximetry 97 % BMI (Body Mass Index) 33.7 kg/m2 02/05/2014 3:05pm Weight 233.50 lb Heart Rate 120 /min BP Systolic Sitting 140 mmHg BP Diastolic Sitting 58 mmHg Body Temperature 98.1 F 12/03/2013 9:40am Weight 241.00 lb Heart Rate 84 /min BP Systolic Sitting 129 mmHg BP Diastolic Sitting 68 mmHg Body Temperature 97.4 F 11/20/2013 1:02pm Weight 241.00 lb Heart Rate 98 /min BP Systolic Sitting 144 mmHg BP Diastolic Sitting 72 mmHg Body Temperature 101.4 F 11/01/2013 3:07pm Height 71 inches 5'11" Weight 240.00 lb Heart Rate 100 /min BP Systolic Sitting 138 mmHg BP Diastolic Sitting 80 mmHg Body Temperature 98.7 F BMI (Body Mass Index) 33.5 kg/m2 06/19/2013 4:46pm Height 71 inches 5'11" Weight 231.00 lb Heart Rate 92 /min BP Systolic Sitting 134 mmHg BP Diastolic Sitting 70 mmHg Body Temperature 99.2 F BMI (Body Mass Index) 32.2 kg/m2 11/07/2012 3:06pm Weight 240.00 lb Heart Rate 98 /min BP Systolic Sitting 142 mmHg BP Diastolic Sitting 85 mmHg 08/24/2012 4:50pm Weight 243.00 lb Heart Rate 90 /min BP Systolic Sitting 128 mmHg BP Diastolic Sitting 86 mmHg Body Temperature 98.9 F 08/17/2012 1:57pm Weight 243.00 lb Heart Rate 88 /min BP Systolic Sitting 132 mmHg BP Diastolic Sitting 84 mmHg Body Temperature 98.2 F 08/06/2012 3:29pm Height 71.5 inches 5'11.50" Weight 243.00 lb Heart Rate 96 /min BP Systolic Sitting 150 mmHg BP Diastolic Sitting 80 mmHg BMI (Body Mass Index) 33.4 kg/m2 05/09/2012 3:00pm Height 71.25 inches 5'11.25" Weight 239.00 lb Heart Rate 108 /min BP Systolic Sitting 132 mmHg BP Diastolic Sitting 74 mmHg BMI (Body Mass Index) 33.1 kg/m2 03/08/2012 12:31pm Height 71 inches 5'11" Weight 245.00 lb Heart Rate 88 /min BP Systolic Sitting 134 mmHg BP Diastolic Sitting 72 mmHg Body Temperature 96.7 F O2 % BldC Oximetry 98 % BMI (Body Mass Index) 34.2 kg/m2 02/06/2012 3:09pm Height 71 inches 5'11" Weight 240.00 lb Heart Rate 96 /min BP Systolic Sitting 152 mmHg BP Diastolic Sitting 76 mmHg BMI (Body Mass Index) 33.5 kg/m2 07/15/2011 12:00pm Height 71.25 inches 5'11.25" Weight 237.00 lb Heart Rate 112 /min BP Systolic Sitting 136 mmHg BP Diastolic Sitting 88 mmHg BMI (Body Mass Index) 32.8 kg/m2 12/31/2010 11:46am Height 72 inches 6'0" Weight 241.00 lb Heart Rate 84 /min BP Systolic Sitting 120 mmHg BP Diastolic Sitting 76 mmHg BMI (Body Mass Index) 32.7 kg/m2 07/06/2010 4:06pm Height 71.25 inches 5'11.25" Weight 250.00 lb Heart Rate 100 /min BP Systolic Sitting 132 mmHg BP Diastolic Sitting 70 mmHg BMI (Body Mass Index) 34.6 kg/m2 02/19/2010 1:30pm Weight 239.00 lb Heart Rate 98 /min BP Systolic Sitting 130 mmHg BP Diastolic Sitting 68 mmHg 12/10/2009 1:06pm Height 71.25 inches 5'11.25" Weight 236.00 lb Heart Rate 100 /min BP Systolic Sitting 138 mmHg BP Diastolic Sitting 78 mmHg BMI (Body Mass Index) 32.7 kg/m2 10/27/2009 3:30pm Height 71.25 inches 5'11.25" Weight 237.00 lb Heart Rate 107 /min BP Systolic Sitting 158 mmHg BP Diastolic Sitting 80 mmHg BMI (Body Mass Index) 32.8 kg/m2 08/27/2009 8:33am Heart Rate 86 /min BP Systolic Sitting 146 mmHg BP Diastolic Sitting 80 mmHg 03/06/2009 2:09pm Height 71.25 inches 5'11.25" Weight 246.00 lb Heart Rate 106 /min BP Systolic Sitting 140 mmHg BP Diastolic Sitting 70 mmHg BMI (Body Mass Index) 34.1 kg/m2 12/16/2008 1:42pm Weight 236.50 lb Heart Rate 100 /min BP Systolic Sitting 156 mmHg BP Diastolic Sitting 74 mmHg 10/14/2008 1:46pm Height 72 inches 6'0" Weight 233.00 lb Heart Rate 100 /min BP Systolic Sitting 132 mmHg BP Diastolic Sitting 68 mmHg BMI (Body Mass Index) 31.6 kg/m2 09/11/2008 1:05pm Height 72 inches 6'0" Weight 237.00 lb Heart Rate 84 /min BP Systolic Sitting 150 mmHg BP Diastolic Sitting 68 mmHg BMI (Body Mass Index) 32.1 kg/m2 06/11/2008 1:05pm Height 71 inches 5'11" Weight 238.00 lb Heart Rate 88 /min BP Systolic Sitting 182 mmHg BP Diastolic Sitting 80 mmHg BMI (Body Mass Index) 33.2 kg/m2 03/31/2008 1:51pm Height 71 inches 5'11" Weight 241.00 lb Heart Rate 80 /min BP Systolic Sitting 130 mmHg BP Diastolic Sitting 60 mmHg BMI (Body Mass Index) 33.6 kg/m2 07/10/2007 1:01pm Height 71 inches 5'11" Weight 244.00 lb Heart Rate 100 /min BP Systolic Sitting 144 mmHg BP Diastolic Sitting 60 mmHg BMI (Body Mass Index) 34.0 kg/m2 06/26/2007 2:22pm Height 71 inches 5'11" Weight 239.00 lb Heart Rate 88 /min BP Systolic Sitting 146 mmHg BP Diastolic Sitting 68 mmHg BMI (Body Mass Index) 33.3 kg/m2 05/28/2007 10:44am Height 71 inches 5'11" Weight 239.00 lb Heart Rate 90 /min BP Systolic Sitting 152 mmHg BP Diastolic Sitting 70 mmHg BMI (Body Mass Index) 33.3 kg/m2 03/07/2007 1:09pm Height 71 inches 5'11" Weight 239.00 lb Heart Rate 80 /min BP Systolic Sitting 148 mmHg BP Diastolic Sitting 78 mmHg Respiratory Rate 20 /min BMI (Body Mass Index) 33.3 kg/m2 Results Test Date Facility Test Result H/L Range Note Laboratory test 02/16/2018 [facility] Hemoglobin A1c 8.9 High 5-7 finding Basic Metabolic 01/17/2018 [facility] Sodium 137 mmol/L Normal 135-[address] [place] [address] [phone] Potassium 4.4 mmol/L Normal 3.5-5.0 Chloride 103 mmol/L Normal 101-111 Co2 Carbon Dioxide 26 mmol/L Normal 22-32 Anion Gap 8 mmol/L Normal 2-11 Glucose 153 mg/dL High 70-100 Blood Urea Nitrogen 17 mg/dL Normal 6-24 Creatinine 0.75 mg/dL Normal 0.67-1.17 BUN/Creatinine Ratio 22.7 High 8-20 Calcium 9.3 mg/dL Normal 8.6-10.3 Egfr Non- 104.8 >60 Egfr 126.9 >60 1 Laboratory test 01/17/2018 [facility] PSA Screening 0.995 0- 4.0 [address] ng/[place] [address] [phone] Laboratory test 10/20/2017 [facility] Hemoglobin A1c 7.4 High 5-7 finding Laboratory test 07/19/2017 [facility] Hemoglobin A1c 8.2 High 5-7 finding Urine 06/08/2017 [facility] Ur Microalbumin 15.4 mg/L [address] (mg/L) [place] [address] [phone] Urine Creatinine 138.37 mg/dL Urine Microalbumin/Creatinine 11.1 ug/mg Normal <31 CBC Auto 04/14/2017 [facility] White Blood 9.5 10^3/uL Normal 3.5-10.[address] Count [place], [place] [id number] [phone] Red Blood Count 5.04 10^6/uL Normal 4.0-5.4 Hemoglobin 15.3 g/dL Normal 14.0-18.0 Hematocrit 45 % Normal 42-52 Mean Corpuscular Volume 88 fL Normal 80-94 Mean Corpuscular Hemoglobin 30 pg Normal 27-31 Mean Corpuscular HGB Conc 34 g/dL Normal 31-36 Red Cell Distribution Width 13 % Normal 10.5-15 Platelet Count 403 10^3/uL Normal 150-450 Mean Platelet Volume 6 um3 Low 7.4-10.4 Abs Neutrophils 5.6 10^3/uL Normal 1.5-7.7 Abs Lymphocytes 2.6 10^3/uL Normal 1.0-4.8 Abs Monocytes 0.9 10^3/uL High 0-0.8 Abs Eosinophils 0.3 10^3/uL Normal 0-0.6 Abs Basophils 0.1 10^3/uL Normal 0-0.2 Abs Nucleated RBC 0 10^3/uL Granulocyte % 58.5 % Normal 38-83 Lymphocyte % 27.5 % Normal 25-47 Monocyte % 9.8 % High 1-9 Eosinophil % 3.6 % Normal 0-6 Basophil % 0.6 % Normal 0-2 Nucleated Red Blood Cells % 0 Urinalysis Profile 04/14/2017 [facility] Urine Color Yellow [address] [place] [address] [phone] Urine Appearance Clear Urine Specific [place] 1.018 Normal 1.010-1.030 Urine pH 6.0 Normal 5-9 Urine Urobilinogen Negative Negative Urine Ketones Negative Negative Urine Protein Negative Negative Urine Leukocytes Negative Negative Urine Blood Negative Negative * * Abnormal Negative 4 Urine Nitrite Negative Negative Urine Bilirubin Negative Negative Urine Glucose Negative Negative Inr/Protime 04/14/2017 [facility] Inr 1.06 High 0.77-1.[address] [place] [address] [phone] Laboratory test 04/14/2017 [facility] Partial 35.1 Normal 26.0 -36.[address] [place] [address] Time PTT [phone] Type & Screen 04/14/2017 [facility] Patient O Positive [address] [place] [address] [phone] Antibody Screen NEGATIVE Urine Culture And 04/14/2017 [facility] Urine SEE RESULT [address] [place] [address] [phone] Basic Metabolic 04/14/2017 [facility] Sodium 135 mmol/L Normal 133-[address] [place] [address] [phone] Potassium 4.9 mmol/L Normal 3.5-5.0 Chloride 100 mmol/L Low 101-111 Co2 Carbon Dioxide 28 mmol/L Normal 22-32 Anion Gap 7 mmol/L Normal 2-11 Glucose 182 mg/dL High 70-100 Blood Urea Nitrogen 14 mg/dL Normal 6-24 Creatinine 0.87 mg/dL Normal 0.67-1.17 BUN/Creatinine Ratio 16.1 Normal 8-20 Calcium 10.1 mg/dL Normal 8.6-10.3 Egfr Non- 88.6 >60 Egfr 114.0 >60 6 Laboratory test 04/14/2017 [facility] Hemoglobin A1c 8.2 % High 4.0-5.[address] (Glyco HGB) [place] [address] [phone] Magnesium 1.7 mg/dL Low 1.9-2.7 Laboratory test 01/30/2017 [facility] Hemoglobin A1c 7.9 High 5-7 finding Laboratory test 01/25/2017 [facility] Vitamin D Total 35.8 ng/ mL Normal 20-[address] 25(Oh) [place] [address] [phone] Lyme Disease Serology Negative Negative 9 Laboratory 01/25/2017 [facility] PSA Screening 1.277 ng/mL Normal 0-4.0 10 test finding [address] [place] [address] [phone] Laboratory 07/20/2016 [facility] Hemoglobin 8.2 High 5-7 test finding A1c Laboratory 05/27/2016 [facility] Lyme Disease Negative Normal Negative 11 test finding [address] [place] [address] [phone] Creatine Kinase(CK) 68 U/L Normal 10-223 12 C Reactive Protein 7.06 mg/L High < 5.00 13 CBC Auto 05/27/2016 [facility] White Blood 10.7 10^3/uL Normal 3.5-10.[address] [place] [address] [phone] Red Blood Count 4.63 10^6/uL Normal 4.0-5.4 Hemoglobin 13.8 g/dL Low 14.0-18.0 Hematocrit 40 % Low 42-52 Mean Corpuscular Volume 87 fL Normal 80-94 Mean Corpuscular Hemoglobin 30 pg Normal 27-31 Mean Corpuscular HGB Conc 34 g/dL Normal 31-36 Red Cell Distribution Width 14 % Normal 10.5-15 Platelet Count 324 10^3/uL Normal 150-450 Mean Platelet Volume 7 um3 Low 7.4-10.4 Abs Neutrophils 6.0 10^3/uL Normal 1.5-7.7 Abs Lymphocytes 3.1 10^3/uL Normal 1.0-4.8 Abs Monocytes 1.0 10^3/uL High 0-0.8 Abs Eosinophils 0.6 10^3/uL Normal 0-0.6 Abs Basophils 0 10^3/uL Normal 0-0.2 Abs Nucleated RBC 0 10^3/uL Normal Granulocyte % 55.9 % Normal 38-83 Lymphocyte % 28.7 % Normal 25-47 Monocyte % 9.5 % High 1-9 Eosinophil % 5.4 % Normal 0-6 Basophil % 0.5 % Normal 0-2 Nucleated Red Blood Cells % 0 Normal Laboratory test 01/26/2016 [facility] Hemoglobin A1c 6.0 % Normal Less 14, [address] (Glyco HGB) [place] [address] 6.0 [phone] Urine 01/26/2016 [facility] Urine 150.14 Normal Microalbumin [address] Creatinine mg/dL Random [place], [place] [id number] [phone] Ur Microalbumin (mg/L) < 15.0 mg/L Normal Urine Microalbumin/Creatinine TNP ug/mg Normal <31 16 Laboratory test 01/26/2016 [facility] Glucose 120 mg/dL High 70-100 [address] [place], [place] [id number] [phone] Lipid Profile 01/26/2016 [facility] Triglycerides 103 mg/dL Normal 18 (Trig/Chol/HDL) [address] [place] [address] [phone] Cholesterol 180 mg/dL Normal 19 HDL Cholesterol 50.3 mg/dL Normal 20 LDL Cholesterol 109 mg/dL Normal 21 Laboratory test 12/29/2015 [facility] Surgical SEE RESULT [address] [place] [address] [phone] Laboratory test 12/29/2015 [facility] Point of Care 160 mg/dL High 74-10 [address] Glucose 6 [place] [address] [phone] Laboratory test 12/29/2015 [facility] Point of Care 111 mg/dL High 74-10 [address] Glucose 6 [place] [address] [phone] CBC Auto Diff 12/21/2015 [facility] White Blood 8.9 10^3/uL Normal 3.5-[address] Count 0.8 [place] [address] [phone] Red Blood Count 5.00 10^6/uL Normal 4.0-5.4 Hemoglobin 14.9 g/dL Normal 14.0-18.0 Hematocrit 44 % Normal 42-52 Mean Corpuscular Volume 88 fL Normal 80-94 Mean Corpuscular Hemoglobin 30 pg Normal 27-31 Mean Corpuscular HGB Conc 34 g/dL Normal 31-36 Red Cell Distribution Width 13 % Normal 10.5-15 Platelet Count 384 10^3/uL Normal 150-450 Mean Platelet Volume 7 um3 Low 7.4-10.4 Abs Neutrophils 5.4 10^3/uL Normal 1.5-7.7 Abs Lymphocytes 2.3 10^3/uL Normal 1.0-4.8 Abs Monocytes 0.6 10^3/uL Normal 0-0.8 Abs Eosinophils 0.5 10^3/uL Normal 0-0.6 Abs Basophils 0 10^3/uL Normal 0-0.2 Abs Nucleated RBC 0 10^3/uL Normal Granulocyte % 61.0 % Normal 38-83 Lymphocyte % 25.6 % Normal 25-47 Monocyte % 7.2 % Normal 1-9 Eosinophil % 5.7 % Normal 0-6 Basophil % 0.5 % Normal 0-2 Nucleated Red Blood Cells % 0 Normal Comp Metabolic 12/21/2015 [facility] Sodium 133 mmol/L Normal 133-[address] [place] [address] [phone] Potassium 4.2 mmol/L Normal 3.5-5.0 Chloride 100 mmol/L Low 101-111 Co2 Carbon Dioxide 26 mmol/L Normal 22-32 Anion Gap 7 mmol/L Normal 2-11 Glucose 171 mg/dL High 70-100 Blood Urea Nitrogen 18 mg/dL Normal 6-24 Creatinine 0.89 mg/dL Normal 0.67-1.17 BUN/Creatinine Ratio 20.2 High 8-20 Calcium 9.9 mg/dL Normal 8.6-10.3 Total Protein 7.2 g/dL Normal 6.4-8.9 Albumin 4.4 g/dL Normal 3.2-5.2 Globulin 2.8 g/dL Normal 2-4 Albumin/Globulin Ratio 1.6 Normal 1-3 Total Bilirubin 0.50 mg/dL Normal 0.2-1.0 Alkaline Phosphatase 63 U/L Normal 34-104 Alt 14 U/L Normal 7-52 Ast 18 U/L Normal 13-39 Egfr Non- 86.6 Normal >60 Egfr 111.4 Normal >60 25 Inr/Protime 12/21/2015 [facility] Inr 1.06 Normal 0.89-1.11 [address] [place] [address] [phone] Laboratory test 09/23/2015 [facility] Hemoglobin 7.3 % High Less than 26 finding 101 [facility] A1c (Glyco 6.0 [place] [address] HGB) [phone] CBC Auto Diff 09/23/2015 [facility] White Blood 7.8 Normal 3.5 -10.8 101 [facility] Count 10^3/[place] [address] [phone] Red Blood Count 4.81 10^6/uL Normal 4.0-5.4 Hemoglobin 14.4 g/dL Normal 14.0-18.0 Hematocrit 43 % Normal 42-52 Mean Corpuscular Volume 90 fL Normal 80-94 Mean Corpuscular Hemoglobin 30 pg Normal 27-31 Mean Corpuscular HGB Conc 34 g/dL Normal 31-36 Red Cell Distribution Width 14 % Normal 10.5-15 Platelet Count 320 10^3/uL Normal 150-450 Mean Platelet Volume 6 um3 Low 7.4-10.4 Abs Neutrophils 4.3 10^3/uL Normal 1.5-7.7 Abs Lymphocytes 2.3 10^3/uL Normal 1.0-4.8 Abs Monocytes 0.7 10^3/uL Normal 0-0.8 Abs Eosinophils 0.4 10^3/uL Normal 0-0.6 Abs Basophils 0 10^3/uL Normal 0-0.2 Abs Nucleated RBC 0 10^3/uL Normal Granulocyte % 54.9 % Normal 38-83 Lymphocyte % 30.1 % Normal 25-47 Monocyte % 9.1 % High 1-9 Eosinophil % 5.4 % Normal 0-6 Basophil % 0.5 % Normal 0-2 Nucleated Red Blood Cells % 0 Normal Comp Metabolic 09/23/2015 [facility] Sodium 136 mmol/L Normal 133-145 Panel [address] [place] [address] [phone] Potassium 4.6 mmol/L Normal 3.5-5.0 Chloride 103 mmol/L Normal 101-111 Co2 Carbon Dioxide 25 mmol/L Normal 22-32 Anion Gap 8 mmol/L Normal 2-11 Glucose 110 mg/dL High 70-100 Blood Urea Nitrogen 21 mg/dL Normal 6-24 Creatinine 0.82 mg/dL Normal 0.67-1.17 BUN/Creatinine Ratio 25.6 High 8-20 Calcium 9.8 mg/dL Normal 8.6-10.3 Total Protein 7.0 g/dL Normal 6.4-8.9 Albumin 4.0 g/dL Normal 3.2-5.2 Globulin 3.0 g/dL Normal 2-4 Albumin/Globulin Ratio 1.3 Normal 1-3 Total Bilirubin 0.40 mg/dL Normal 0.2-1.0 Alkaline Phosphatase 59 U/L Normal 34-104 Alt 19 U/L Normal 7-52 Ast 17 U/L Normal 13-39 Egfr Non- 95.2 Normal >60 Egfr 122.4 Normal >60 27 Laboratory test 09/23/2015 [facility] Lipase 50 U/L Normal 11.0-82.[address] [place] [address] [phone] Laboratory test 07/16/2015 [facility] Renin 14 Normal 28 finding [address] [facility] ng/mL/[place] [address] [phone] Aldosterone <4.0 ng/dL Normal <=21 29 Basic Metabolic 07/16/2015 [facility] Sodium 134 mmol/L Normal 133-[address] [place] [address] [phone] Potassium 4.3 mmol/L Normal 3.5-5.0 Chloride 101 mmol/L Normal 101-111 Co2 Carbon Dioxide 26 mmol/L Normal 22-32 Anion Gap 7 mmol/L Normal 2-11 Glucose 199 mg/dL High 70-100 Blood Urea Nitrogen 12 mg/dL Normal 6-24 Creatinine 0.91 mg/dL Normal 0.67-1.17 BUN/Creatinine Ratio 13.2 Normal 8-20 Calcium 9.2 mg/dL Normal 8.6-10.3 Egfr Non- 84.4 Normal >60 Egfr 108.6 Normal >60 30 Laboratory test 07/16/2015 [facility] Hemoglobin A1c 9.1 % High Less than [address] (Glyco HGB) 6.0 [place] [address] [phone] Vitamin D Total 25(Oh) 51.5 ng/mL High 30-50 Laboratory test 07/16/2015 [facility] PSA Screening 1.178 Normal 0-4.[address] ng/[place] [address] [phone] Laboratory test 04/01/2015 [facility] Hemoglobin A1c 10.3 High 5-7 finding Urine 01/16/2015 [facility] Ur Microalbumin 27.0 Normal Microalbumin 101 (mg/L) mg/[place] [address] [phone] Urine Creatinine 62.95 mg/dL Normal Urine Microalbumin/Creatinine 42.8 ug/mg High <31 Laboratory test 01/16/2015 [facility] Hemoglobin A1c 8.2 High 5-7 finding Lipid Profile 01/02/2015 [facility] Triglycerides 87 mg/dL Normal 33 (Trig/Chol/HDL) [address] [place] [address] [phone] Cholesterol 169 mg/dL Normal 34 HDL Cholesterol 41.5 mg/dL Normal 35 LDL Cholesterol 110 mg/dL Normal 36 Laboratory test 01/02/2015 [facility] Glucose 190 mg/dL High 70-[address] [place] [address] [phone] Comp Metabolic 08/27/2014 [facility] Sodium 133 mmol/L Normal 133-[address] [place] [address] [phone] Potassium 4.1 mmol/L Normal 3.5-5.0 Chloride 101 mmol/L Normal 101-111 Co2 Carbon Dioxide 24 mmol/L Normal 22-32 Anion Gap 8 mmol/L Normal 2-11 Glucose 199 mg/dL High 70-100 Blood Urea Nitrogen 13 mg/dL Normal 6-24 Creatinine 0.98 mg/dL Normal 0.67-1.17 BUN/Creatinine Ratio 13.3 Normal 8-20 Calcium 9.3 mg/dL Normal 8.6-10.3 Total Protein 7.1 g/dL Normal 6.4-8.9 Albumin 4.3 g/dL Normal 3.2-5.2 Globulin 2.8 g/dL Normal 2-4 Albumin/Globulin Ratio 1.5 Normal 1-3 Total Bilirubin 0.40 mg/dL Normal 0.2-1.0 Alkaline Phosphatase 67 U/L Normal 34-104 Alt 27 U/L Normal 7-52 Ast 22 U/L Normal 13-39 Egfr Non- 77.8 Normal >60 Egfr 100.0 Normal >60 37 Laboratory 08/27/2014 [facility] Lactic Acid 1.4 Normal 0.5- 2.2 test finding [address] mmol/L [place], [place] [id number] [phone] Surgical 06/09/2014 [facility] S RUN DATE: [address] 06/10/ [place] [address] <SEE [phone] NOTE> Lipid Profile 01/31/2014 [facility] Triglycerides 132 mg/dL Normal 39, (Trig/Chol/HDL [address] 40 ) [place] [address] [phone] Cholesterol 165 mg/dL Normal 41 HDL Cholesterol 42.7 mg/dL Normal 42 LDL Cholesterol 96 mg/dL Normal 43 Laboratory test 01/31/2014 [facility] Hemoglobin A1c 7.3 % High Less than [address] 6.0 [place], [place] [id number] [phone] Renin 6.7 ng/mL/h Normal 45 Aldosterone <4.0 ng/dL Normal <=21 46 Laboratory test 11/20/2013 [facility] Throat Culture (SEE [address] NOTE) [place], [place] [id number] [phone] Laboratory test 11/20/2013 [facility] Rapid Strep A neg finding Laboratory test 10/24/2013 [facility] PSA Diagnostic 1.419 Normal 0-4.0 [address] ng/mL [place], [place] [address] [phone] Laboratory test 10/10/2013 [facility] Hemoglobin A1c 7.4 % High Less [address] [place] [address] 6.0 [phone] Urine 10/10/2013 [facility] Ur Microalbumin 12.0 Normal <30 [address] (mg/L) mg/[place] [address] [phone] Urine Creatinine 109.28 mg/dL Normal Urine Microalbumin/Creatinine 10.9 Normal Less Than 31 Lipid Profile 10/04/2013 [facility] Triglycerides 101 Normal 51, 52 (Trig/Chol/HDL) [address] mg/[place] [address] [phone] Cholesterol 175 mg/dL Normal 53 HDL Cholesterol 45.2 mg/dL Normal 54 LDL Cholesterol 110 mg/dL Normal 55 Triglycerides 101 mg/dL Normal 56 Cholesterol 175 mg/dL Normal 57 HDL Cholesterol 45.2 mg/dL Normal 58 LDL Cholesterol 110 mg/dL Normal 59 Laboratory test 10/04/2013 [facility] Glucose 189 mg/dL High 70-100 [address] [place] [address] [phone] Basic Metabolic 10/04/2013 [facility] Sodium 135 mmol/L Normal 133-[address] [place] [address] [phone] Potassium 4.2 mmol/L Normal 3.7-5.6 Chloride 103 mmol/L Normal 101-111 Co2 Carbon Dioxide 24 mmol/L Normal 22-32 Anion Gap 8 mmol/L Normal 2-11 Blood Urea Nitrogen 14 mg/dL Normal 6-24 Creatinine 0.88 mg/dL Normal 0.67-1.17 BUN/Creatinine Ratio 15.9 Normal 8-20 Calcium 9.1 mg/dL Normal 8.6-10.3 Egfr Non- 88.3 Normal >60 Egfr 113.6 Normal >60 61 Laboratory 10/04/2013 [facility] Hepatitis C Nonreactive Normal Nonreactive test finding [address] [place] [address] [phone] HIV 1/2 AB 10/04/2013 [facility] HIV 1 2 Nonreactive Normal Nonreactive 62 Evaluation 101 [facility] [place] [address] [phone] Laboratory 11/07/2012 [facility] Hemoglobin 7.0 5-7 test finding A1c Laboratory 10/02/2012 [facility] Vitamin B12 315 pg/mL 180- 914 test finding [address] [place] [address] [phone] Cortisol 5.6 g/dL 63 Erythrocyte Sed Rate 33 mm/Hr High 0-20 Urine Culture And 09/21/2012 [facility] Urine Culture (SEE NOTE ) 64 Sensitivities 101 [facility] [place] [address] [phone] Basic Metabolic 09/19/2012 [facility] Sodium 135 mmol/L 133- 14 Panel 101 [facility] 5 [place] [address] [phone] Potassium 4.0 mmol/L 3.5-5.0 Chloride 102 mmol/L 101-111 Co2 Carbon Dioxide 23.0 mmol/L 22-32 Anion Gap 10.0 mmol/L 2-11 Glucose 163 mg/dL High 70-100 Blood Urea Nitrogen 17 mg/dL 6-24 Creatinine 1.40 mg/dL 0.50-1.40 BUN/Creatinine Ratio 12.1 8-20 Calcium 9.5 mg/dL 8.1-9.9 Egfr Non- 51.9 >60 Egfr 66.7 >60 65 CBC Auto 09/19/2012 [facility] White Blood 11.1 10^3/uL High 4.8-10.[address] [place] [address] [phone] Red Blood Count 4.52 10^6/uL 4.0-5.4 Hemoglobin 13.5 g/dL Low 14.0-18.0 Hematocrit 41 % Low 42-52 Mean Corpuscular Volume 90 fL 80-94 Mean Corpuscular Hemoglobin 30 pg 27-31 Mean Corpuscular HGB Conc 33 g/dL 31-36 Red Cell Distribution Width 14 % 10.5-15 Platelet Count 311 10^3/uL 150-450 Mean Platelet Volume 7 um3 Low 7.4-10.4 Abs Neutrophils 7.9 10^3/uL High 1.5-7.7 Abs Lymphocytes 1.8 10^3/uL 1.0-4.8 Abs Monocytes 1.1 10^3/uL High 0-0.8 Abs Eosinophils 0.2 10^3/uL 0-0.6 Abs Basophils 0 10^3/uL 0-0.2 Abs Nucleated RBC 0 10^3/uL Granulocyte % 71.2 % 38-83 Lymphocyte % 16.4 % Low 25-47 Monocyte % 10.2 % High 1-9 Eosinophil % 2.0 % 0-6 Basophil % 0.2 % 0-2 Nucleated Red Blood Cells % 0 Urine Culture And 08/17/2012 [facility] Urine Culture (SEE NOTE ) 66 Sensitivities [address] [place] [address] [phone] Ua Routine 08/17/2012 [facility] Ua Specific 1.030 [place] Ua PH 5 Ua Color gera Ua Appera dark Ua WBC small Ua Protein 300+ Ua Glucose neg Ua Ketones 160+ Ua Bilirubin small Ua Urobilinogen negative Ua Nitrite negative Ua Occult Blood xlarge Laboratory test 08/15/2012 [facility] Aldosterone 7.0 ng/dL < =21 67 finding 101 [place] [address] [phone] Renin 5.4 ng/mL/h 68 Basic Metabolic Panel 08/15/2012 [facility] Sodium 134 mmol/L 133-145 [address] [place] [address] [phone] Potassium 4.0 mmol/L 3.5-5.0 Chloride 102 mmol/L 101-111 Co2 Carbon Dioxide 24.0 mmol/L 22-32 Anion Gap 8.0 mmol/L 2-11 Glucose 243 mg/dL High 70-100 Blood Urea Nitrogen 19 mg/dL 6-24 Creatinine 0.90 mg/dL 0.50-1.40 BUN/Creatinine Ratio 21.1 High 8-20 Calcium 9.7 mg/dL 8.1-9.9 Egfr Non- 86.4 >60 Egfr 111.1 >60 69 Laboratory test 08/15/2012 [facility] TSH (Thyroid 0.58 0.34- 5.[address] Stimulating miu/mL [address]) [phone] Free T4 0.88 ng/mL 0.61-1.24 Total T3 1.16 ng/mL 0.5-1.7 Ua Routine 08/06/2012 [facility] Ua Specific [place] 1.010 Ua PH 6.0 Ua Color yellow Ua Appera clear Ua WBC neg Ua Protein trace Ua Glucose 250+ Ua Ketones trace Ua Bilirubin neg Ua Urobilinogen neg Ua Nitrite neg Ua Occult Blood neg Urine Microalbumin 05/09/2012 [facility] Ur Microalbumin 18.0 mg /L [address] (Mg/L) [place] [id number] [phone] Urine Creatinine 41.6 mg/dL Urine Microalbumin/Creatinine 43.3 ug/mg High Less Than 31 Laboratory test 05/09/2012 [facility] Hemoglobin A1c 6.3 5-7 finding CBC Auto Diff 02/20/2012 [facility] White Blood Count 9.4 4.8 -10.[address] 10^3/[place] [address] [phone] Red Blood Count 4.58 10^6/uL 4.0-5.4 Hemoglobin 13.6 g/dL Low 14.0-18.0 Hematocrit 40 % Low 42-52 Mean Corpuscular Volume 88 fL 80-94 Mean Corpuscular Hemoglobin 30 pg 27-31 Mean Corpuscular HGB Conc 34 g/dL 31-36 Red Cell Distribution Width 14 % 10.5-15 Platelet Count 332 10^3/uL 150-450 Mean Platelet Volume 7 um3 Low 7.4-10.4 Abs Neutrophils 5.4 10^3/uL 1.5-7.7 Abs Lymphocytes 2.6 10^3/uL 1.0-4.8 Abs Monocytes 0.8 10^3/uL 0-0.8 Abs Eosinophils 0.5 10^3/uL 0-0.6 Abs Basophils 0 10^3/uL 0-0.2 Abs Nucleated RBC 0 10^3/uL Granulocyte % 57.6 % 38-83 Lymphocyte % 28.1 % 25-47 Monocyte % 8.5 % 1-9 Eosinophil % 5.3 % 0-6 Basophil % 0.5 % 0-2 Nucleated Red Blood Cells % 0 BMP Basic Metabolic 02/13/2012 [facility] Sodium 140 mmol/L 133-[address] [place] [address] [phone] Potassium 4.2 mmol/L 3.5-5.0 Chloride 103 mmol/L 101-111 Co2 Carbon Dioxide 30.0 mmol/L 22-32 Anion Gap 7.0 mmol/L 2-11 Glucose 130 mg/dL High 70-100 Blood Urea Nitrogen 16 mg/dL 6-24 Creatinine 0.90 mg/dL 0.50-1.40 BUN/Creatinine Ratio 17.8 8-20 Calcium 9.8 mg/dL 8.1-9.9 Egfr Non- 86.7 >60 Egfr 111.5 >60 71 CBC W/Electronic 02/13/2012 [facility] White 12.6 10^3/uL High 4.8-10.[address] [place] [address] Count [phone] Red Blood Count 4.69 10^6/uL 4.0-5.4 Hemoglobin 13.9 g/dL Low 14.0-18.0 Hematocrit 41 % Low 42-52 Mean Corpuscular Volume 88 fL 80-94 Mean Corpuscular Hemoglobin 30 pg 27-31 Mean Corpuscular HGB Conc 34 g/dL 31-36 Red Cell Distribution Width 13 % 10.5-15 Platelet Count 330 10^3/uL 150-450 Mean Platelet Volume 7 um3 Low 7.4-10.4 Abs Neutrophils 8.4 10^3/uL High 1.5-7.7 Abs Lymphocytes 2.6 10^3/uL 1.0-4.8 Abs Monocytes 1.0 10^3/uL High 0-0.8 Abs Eosinophils 0.5 10^3/uL 0-0.6 Abs Basophils 0.1 10^3/uL 0-0.2 Abs Nucleated RBC 0.01 10^3/uL Granulocyte % 66.8 % 38-83 Lymphocyte % 20.4 % Low 25-47 Monocyte % 8.0 % 1-9 Eosinophil % 3.9 % 0-6 Basophil % 0.9 % 0-2 Nucleated Red Blood Cells % 0.1 Laboratory test 02/06/2012 [facility] Hemoglobin A1c 6.5 % High Less than [address] [place] [address] [phone] Activated Partial Thrombo Time 37.4 Sec High 22.18-37.18 73 Inr/Protime 02/06/2012 [facility] Inr 0.93 0.82-1.[address] [place] [address] [phone] CBC Auto Diff 02/06/2012 [facility] White Blood 15.2 High 4.8- 10.[address] Count 10^3/[place] [address] [phone] Red Blood Count 4.91 10^6/uL 4.0-5.4 Hemoglobin 14.5 g/dL 14.0-18.0 Hematocrit 44 % 42-52 Mean Corpuscular Volume 89 fL 80-94 Mean Corpuscular Hemoglobin 30 pg 27-31 Mean Corpuscular HGB Conc 33 g/dL 31-36 Red Cell Distribution Width 14 % 10.5-15 Platelet Count 302 10^3/uL 150-450 Mean Platelet Volume 7 um3 Low 7.4-10.4 Abs Neutrophils 11.4 10^3/uL High 1.5-7.7 Abs Lymphocytes 2.0 10^3/uL 1.0-4.8 Abs Monocytes 1.2 10^3/uL High 0-0.8 Abs Eosinophils 0.5 10^3/uL 0-0.6 Abs Basophils 0.1 10^3/uL 0-0.2 Abs Nucleated RBC 0.01 10^3/uL Granulocyte % 75.4 % 38-83 Lymphocyte % 13.0 % Low 25-47 Monocyte % 8.1 % 1-9 Eosinophil % 3.1 % 0-6 Basophil % 0.4 % 0-2 Nucleated Red Blood Cells % 0 Urinalysis 02/06/2012 [facility] Urine Color Yellow [address] [place] [address] [phone] Urine Appearance Clear Urine Specific [place] 1.020 1.010-1.030 Urine Esterase Negative Negative Urine Nitrate Negative Negative Urine Urobilinogen Negative Negative Urine Protein Trace Negative Urine pH 7.0 5-9 Urine Blood Negative Negative Urine Ketones Negative Negative Urine Bilirubin Negative Negative Urine Glucose Negative Negative Comp Metabolic Panel 02/06/2012 [facility] Sodium 137 mmol/L 133-145 [address] [place] [address] [phone] Potassium 4.5 mmol/L 3.5-5.0 Chloride 103 mmol/L 101-111 Co2 Carbon Dioxide 28.0 mmol/L 22-32 Anion Gap 6.0 mmol/L 2-11 Glucose 109 mg/dL High 70-100 Blood Urea Nitrogen 15 mg/dL 6-24 Creatinine 0.90 mg/dL 0.50-1.40 BUN/Creatinine Ratio 16.7 8-20 Calcium 10.1 mg/dL High 8.1-9.9 Total Protein 6.8 GM/DL 6.2-8.1 Albumin 4.2 GM/DL 3.6-5.4 Globulin 2.6 GM/DL 2-4 Albumin/Globulin Ratio 1.6 1-3 Total Bilirubin 0.7 mg/dL 0.1-1.0 75 Alkaline Phosphatase 83 U/L 30-110 Alt 21 U/L 14-54 Ast 20 U/L 12-42 Egfr Non- 86.7 >60 Egfr 111.5 >60 76 Urine Culture And 02/06/2012 [facility] Urine Culture (SEE NOTE ) [address] [place] [address] [phone] Basic Metabolic 01/23/2012 [facility] Sodium 137 mmol/L 133- [address] [place] [address] [phone] Potassium 3.6 mmol/L 3.5-5.0 Chloride 102 mmol/L 101-111 Co2 Carbon Dioxide 25.0 mmol/L 22-32 Anion Gap 10.0 mmol/L 2-11 Glucose 158 mg/dL High 70-100 Blood Urea Nitrogen 18 mg/dL 6-24 Creatinine 0.90 mg/dL 0.50-1.40 BUN/Creatinine Ratio 20.0 8-20 Calcium 9.7 mg/dL 8.1-9.9 Egfr Non- 86.7 >60 Egfr 111.5 >60 78 Lipid Profile 01/23/2012 [facility] Triglycerides 75 mg/dL 40 -200 (Trig/Chol/HDL) [address] [place] [address] [phone] Cholesterol 184 mg/dL Less than 200 79 HDL Cholesterol 52 mg/dL 40-60 80 Cholesterol/HDL Ratio 3.5 AVERAGE 1-4.44 LDL Cholesterol 117.0 mg/dL High Less Than 100 81 Laboratory test 01/23/2012 [facility] Glucose 158 mg/dL High 70-[address] [place] [address] [phone] Basic Metabolic 07/15/2011 [facility] Sodium 136 mmol/L 135- [address] [place] [address] [phone] Potassium 4.6 mmol/L 3.5-5.0 Chloride 102 mmol/L 101-111 Co2 (Carbon Dioxide) 27.0 mmol/L 22-32 Anion Gap 7.0 mmol/L 2-11 82 Glucose 135 mg/dL High 70-100 BUN 13 mg/dL 6-24 Creatinine 0.9 mg/dL 0.50-1.40 One Over Creatinine 1.11 BUN/Creatinine Ratio 14.4 8-20 Calcium 9.4 mg/dL 8.1-9.9 eGFR Non- 86.7 > 60 eGFR 111.5 > 60 83 CBC Auto Diff 07/15/2011 [facility] White Blood 9.6 CUMM 4.8- 10.[address] [place] [address] [phone] Red Cell Count 4.49 CUMM Low 4.6-6.2 Hemoglobin 14.1 g/dL 14.0-18.0 Hematocrit 41 % Low 42-52 Mean Corpuscular Volume 91 um3 80-94 Mean Corpuscular Hemoglob 32 pg High 27-31 Mean Corpuscular HGB Cone 35 g/dL 32-36 Redcell Distribution WDTH 13 % 10.5-15 Platelet Count 344 CUMM 150-450 Mean Platelet Volume 6.8 um3 Low 7.4-10.4 84 Laboratory test 07/15/2011 [facility] PSA 0.85 0-4 [address] [place] NG/[place] [address] [phone] Laboratory test 07/15/2011 [employer] [facility] [facility] Hemoglobin A1c 6.5 5-7 finding Manual 07/15/2011 [facility] Polysegmented 67 % 38-[address] [place] [address] [phone] Band Neutrophil 1 % 0-8 Lymphocyte 18 % Low 25-47 Monocyte 3 % 0-13 Eosinophil 9 % High 0-6 Basophil 1 % 0-2 Atypical Lymph 1 % 0-6 Absolute Neutrophil Count 6.50 RBC Morphology NORMAL Urine Microalbumin 04/07/2011 [facility] Microalbumin 11.0 mg/L [address] (MG/L) [place] [address] [phone] Urine Creatinine 93.2 mg/dL Juan José Alb/Creatinine Ratio 11.8 UG/MG Less Than 30 87 Lipid Panel - 12/22/2010 [facility] CPK (Creatine 85 U/L 0- [address] Kinase) [place] [address] [phone] Comp Metabolic 12/22/2010 [facility] Sodium 139 135-[address] mmol/[place] [address] [phone] Potassium 4.2 mmol/L 3.5-5.0 Chloride 104 mmol/L 101-111 Co2 (Carbon Dioxide) 27.0 mmol/L 22-32 Anion Gap 8.0 mmol/L 2-11 88 Glucose 133 mg/dL High 70-100 BUN 18 mg/dL 6-24 Creatinine 0.9 mg/dL 0.50-1.40 One Over Creatinine 1.11 BUN/Creatinine Ratio 20.0 8-20 Calcium 8.8 mg/dL 8.1-9.9 Total Protein 6.7 GM/DL 6.2-8.1 Albumin 3.7 GM/DL 3.6-5.4 Globulin 3.0 GM/DL 2-4 Albumin/Globulin Ratio 1.2 1-3 Bilirubin Total 0.8 mg/dL 0.4-1.5 89 Alkaline Phosphatase 60 U/L 39-117 Alt (SGPT) 17 U/L 17-63 Ast (Sgot) 19 U/L 12-42 eGFR Non- 87.0 > 60 eGFR 111.9 > 60 90 Lipid Profile 12/22/2010 [facility] Triglyceride 114 mg/dL 40 -200 (Trig/Chol/HDL) [address] [place] [address] [phone] Cholesterol 172 mg/dL Less Than 200 91 High Density Lipoprotein 38 mg/dL Low 40-60 92 Cholesterol/HDL Ratio 4.53 AVERAGE 1-4.97 Low Density Lipoprotein 111 mg/dL High Less Than 100 93 Laboratory 12/22/2010 [facility] Hemoglobin A1c 6.1 % High Less 94 test finding [address]0 [place] [address] [phone] Laboratory 02/16/2010 [facility] Fructosamine 231 200-285 95 , 96 test finding [address] mcmol/[place] [address] [phone] Lipid Panel - 02/16/2010 [facility] CPK (Creatine 78 U/L 0- [address] Kinase) [place] [address] [phone] Comp Metabolic 02/16/2010 [facility] Sodium 133 Low 135-[address] mmol/[place] [address] [phone] Potassium 4.1 mmol/L 3.5-5.0 Chloride 103 mmol/L 101-111 Co2 (Carbon Dioxide) 25.0 mmol/L 22-32 Anion Gap 5.0 mmol/L 2-11 97 Glucose 140 mg/dL High 70-100 98 BUN 16 mg/dL 6-24 Creatinine 0.80 mg/dL 0.50-1.40 One Over Creatinine 1.20 BUN/Creatinine Ratio 20.0 8-20 Calcium 9.0 mg/dL 8.1-9.9 Total Protein 6.9 GM/DL 6.2-8.1 Albumin 4.0 GM/DL 3.6-5.4 Globulin 2.9 GM/DL 2-4 Albumin/Globulin Ratio 1.4 1-3 Bilirubin Total 0.9 mg/dL 0.4-1.5 99 Alkaline Phosphatase 60 U/L 39-117 Alt (SGPT) 25 U/L 17-63 Ast (Sgot) 22 U/L 12-42 eGFR Non- 106.3 > 60 eGFR 128.6 > 60 100 Lipid Profile 02/16/2010 [facility] Triglyceride 88 mg/dL 40- 200 (Trig/Chol/HDL) [address] [place] [address] [phone] Cholesterol 177 mg/dL Less Than 200 101 High Density Lipoprotein 42 mg/dL 40-60 102 Cholesterol/HDL Ratio 4.21 AVERAGE 1-4.97 Low Density Lipoprotein 117 mg/dL High Less Than 100 103 Creatinine 10/26/2009 [facility] Creatinine 127.21 mg/dL [address] [place] [address] [phone] Creat Clearance 210 mL/min High 80-125 Hours Of Collection 24 HR 24- Urine Volume Measurement 1900 ML Laboratory test 10/26/2009 [facility] Hemoglobin A1c 5.7 % Less Than [address] [place] [address] [phone] Lipid Profile 10/26/2009 [facility] Triglyceride 80 mg/dL 40- 200 (Trig/Chol/HDL) [address] [place] [address] [phone] Cholesterol 181 mg/dL Less Than 200 106 High Density Lipoprotein 37 mg/dL Low 40-60 107 Cholesterol/HDL Ratio 4.89 AVERAGE 1-4.97 Low Density Lipoprotein 128 mg/dL High Less Than 100 108 Comp Metabolic Panel 10/26/2009 [facility] Sodium 139 mmol/L 135-[address] [place] [address] [phone] Potassium 3.9 mmol/L 3.5-5.0 Chloride 105 mmol/L 101-111 Co2 (Carbon Dioxide) 26.0 mmol/L 22-32 Anion Gap 8.0 mmol/L 2-11 109 Glucose 128 mg/dL High 70-100 110 BUN 17 mg/dL 6-24 Creatinine 0.80 mg/dL 0.50-1.40 One Over Creatinine 1.20 BUN/Creatinine Ratio 21.3 High 8-20 Calcium 9.2 mg/dL 8.1-9.9 111 Total Protein 6.3 GM/DL 6.2-8.1 Albumin 3.9 GM/DL 3.6-5.4 Globulin 2.4 GM/DL 2-4 Albumin/Globulin Ratio 1.6 1-3 Bilirubin Total 0.8 mg/dL 0.4-1.5 112 Alkaline Phosphatase 64 U/L 39-117 Alt (SGPT) 22 U/L 17-63 Ast (Sgot) 21 U/L 12-42 eGFR Non- 106.3 > 60 eGFR 128.6 > 60 113 Lipid Panel - JFM 10/26/2009 [facility] CPK (Creatine 88 U/L 0-[address] Kinase) [place] [address] [phone] Microalbumin 24HR 10/26/2009 [facility] Microalbumin 14.[address] (MG/L) mg/[place] [address] [phone] Microalbumin (MG/24HR) 26.6 MG/24HR Less Than 30 Microalbumin (mcg/Min) 18.5 MCG/MIN Less Than 20 Hours Of Collection 24 HR Urine Volume Measurement 1900 ML 114 CBC With 10/26/2009 [facility] White Blood 7.8 CUMM 4.8-10.8 Electronic Diff [address] [place] [address] [phone] Red Cell Count 4.39 CUMM Low 4.6-6.2 Hemoglobin 13.7 g/dL Low 14.0-18.0 Hematocrit 40 % Low 42-52 Mean Corpuscular Volume 90 um3 80-94 Mean Corpuscular Hemoglob 31 pg 27-31 Mean Corpuscular HGB Cone 35 g/dL 32-36 Redcell Distribution WDTH 13 % 10.5-15 Platelet Count 311 CUMM 150-450 Mean Platelet Volume 5.7 um3 Low 7.4-10.4 Gran % 57.5 % 38-83 Lymph % 28.5 % 25-47 Mononuclear % 8.2 % 1-9 Eosinophil % 5.3 % 0-6 Basophil % 0.5 % 0-2 Abs Lymphs 2.2 1.0-4.8 Abs Mononuclear 0.6 0-0.8 Absolute Neutrophil Count 4.5 1.5-7.7 Abs Eosinophils 0.4 0-0.6 Abs Basophils 0 0-0.2 Laboratory test 08/05/2009 [facility] Rheumatoid < 20.0 Less Than finding [address] Factor IU/mL 20 [place] [address] [phone] C Reactive Protein 1.0 mg/dL High Less Than 0.5 Erythrocyte Sed Rate 23 MM/HR High 0-20 Shanika (Antinuclear 08/05/2009 [facility] Antinuclear AB NEGATIVE Negative Antibodies) [address] [place] [address] [phone] Reviewed By (SEE NOTE) 115 Ssa/SSB 08/05/2009 [facility] Ssa NEGATIVE Negative [address] [place] [address] [phone] SSB NEGATIVE Negative Immunofixation 08/05/2009 [facility] Albumin 3.16 GM/DL 3.0- 4.35 (Electro) Serum [address] [place] [address] [phone] Alpha 1 0.21 GM/DL 0.09-0.33 Alpha 2 0.80 GM/DL 0.59-1.18 Beta 1.00 GM/DL 0.68-1.02 Gamma 1.02 GM/DL 0.76-1.60 Albumin % 51.0 % 46-63 Alpha 1 % 3.4 % 1.2-5.3 Alpha 2 % 12.9 % 9-17 Beta % 16.1 % High 10-16 Gamma % 16.5 % 12-22 A/G Ratio 1.0 0.9-2 Total Protein 6.2 GM/DL 6.2-8.1 Spep Comments (SEE NOTE) 116 Serum Immunofixation (SEE NOTE) 117 Basic Metabolic Panel 05/14/2009 [facility] Sodium 137 mmol/L 135-[address] [place] [address] [phone] Potassium 4.0 mmol/L 3.5-5.0 Chloride 104 mmol/L 101-111 Co2 (Carbon Dioxide) 24.0 mmol/L 22-32 Anion Gap 9.0 mmol/L 2-11 118 Glucose 122 mg/dL High 70-100 119 BUN 15 mg/dL 6-24 Creatinine 0.80 mg/dL 0.50-1.40 One Over Creatinine 1.20 BUN/Creatinine Ratio 18.8 8-20 Calcium 9.1 mg/dL 8.1-9.9 120 eGFR Non- 106.7 > 60 eGFR 129.1 > 60 121 Laboratory test 05/14/2009 [facility] Uric Acid 5.0 mg/dL 2.6 -7.2 finding 101 [place] [address] [phone] Testosterone Total 354.4 ng/dL 175-781 PSA Screening 0.68 NG/ML 0-4 Hemoglobin A1c 5.9 % Less Than 6.0 122 PTH Intact, Inc 05/14/2009 [facility] PTH Intact 3.3 PMOL/L 1.3-9.3 123 Total Calcium [address] [place] [address] [phone] Calcium For Pthi 9.1 mg/dL 8.1-9.9 124 Urinalysis 12/16/2008 [facility] Ua Color YELLOW [address] [place] [address] [phone] Appearance-Urine CLEAR Specific [place]-Ur 1.011 1.010-1.030 Esterase-Urine NEGATIVE Negative Nitrite NEGATIVE Negative [id number] NEGATIVE Negative Protein-Urine NEGATIVE Negative PH-Urine 5.5 5-9 Blood-Urine TRACE Abnormal Negative Ketones-Urine NEGATIVE Negative Bilirubin-Ur NEGATIVE Negative Glucose-Urine NEGATIVE Negative Urinalysis W/Microscopic 12/16/2008 [facility] Ua Color YELLOW [address] [place] [address] [phone] Appearance-Urine CLEAR Specific [place]-Ur 1.011 1.010-1.030 Esterase-Urine NEGATIVE Negative Nitrite NEGATIVE Negative [id number] NEGATIVE Negative Protein-Urine NEGATIVE Negative PH-Urine 5.5 5-9 Blood-Urine TRACE Abnormal Negative Ketones-Urine NEGATIVE Negative Bilirubin-Ur NEGATIVE Negative Glucose-Urine NEGATIVE Negative RBC-Urine 0-2 0-2 Bacteria-Urine TRACE Amorphous Sed-U TRACE Urine Culture & 12/16/2008 [facility] Urine Culture NG [address] [facility] [place] [address] [phone] Laboratory test 12/10/2008 [facility] Hemoglobin A1c 5.9 % Less Than 126, 127 finding 101 [facility] 6.0 [place] [address] [phone] PSA,Diagnostic 0.78 NG/ML 0-4 128 Lipid Profile 12/10/2008 [facility] Triglyceride 83 mg/dL 40- 200 (Trig/Chol/HDL) [address] [place] [address] [phone] Cholesterol 192 mg/dL Less Than 200 129 High Density Lipoprotein 38 mg/dL Low 40-60 130 Cholesterol/HDL Ratio 5.05 AVERAGE High 1-4.97 Low Density Lipoprotein 137 mg/dL High Less Than 100 131 Comp Metabolic Panel 12/10/2008 [facility] Sodium 139 mmol/L 135-145 [address] [place] [address] [phone] Potassium 4.6 mmol/L 3.5-5.0 Chloride 104 mmol/L 101-111 Co2 (Carbon Dioxide) 28.0 mmol/L 22-32 Anion Gap 7.0 mmol/L 2-11 132 Glucose 131 mg/dL High 70-100 133 BUN 13 mg/dL 6-24 Creatinine 0.80 mg/dL 0.50-1.40 One Over Creatinine 1.20 BUN/Creatinine Ratio 16.3 8-20 Calcium 9.4 mg/dL 8.1-9.9 134 Total Protein 6.9 GM/DL 6.2-8.1 Albumin 3.9 GM/DL 3.6-5.4 Globulin 3.0 GM/DL 2-4 Albumin/Globulin Ratio 1.3 1-3 Bilirubin Total 0.8 mg/dL 0.4-1.5 135 Alkaline Phosphatase 59 U/L 39-117 Alt (SGPT) 20 U/L 17-63 Ast (Sgot) 19 U/L 12-42 eGFR Non- 106.7 > 60 eGFR 129.1 > 60 136 Lipid Panel - 12/10/2008 [facility] CPK (Creatine 74 U/L 0- [address] Kinase) [place] [address] [phone] Laboratory 09/11/2008 [facility] In House Hemoglobin A1c 7.1 High 5-7 test finding Laboratory 05/05/2008 [facility] Lyme Disease Negative Negative [address] [place] [address] [phone] Laboratory 05/05/2008 [facility] PSA Screening 0.78 NG/ML 0- 4 [address] [place] [address] [phone] Lipid Profile 05/05/2008 [facility] Triglyceride 103 mg/dL 40 -200 (Trig/Chol/HD [address] L) [place] [address] [phone] Cholesterol 187 mg/dL Less Than 200 139 High Density Lipoprotein 42 mg/dL 40-60 140 Cholesterol/HDL Ratio 4.45 AVERAGE 1-4.97 Low Density Lipoprotein 124 mg/dL High Less Than 100 141 Basic Metabolic Panel 05/05/2008 [facility] Sodium 136 mmol/L 135-[address] [place] [address] [phone] Potassium 4.2 mmol/L 3.5-5.0 Chloride 103 mmol/L 101-111 Co2 (Carbon Dioxide) 28.0 mmol/L 22-32 Anion Gap 5.0 mmol/L 2-11 142 Glucose 147 mg/dL High 70-100 143 BUN 11 mg/dL 6-24 Creatinine 0.80 mg/dL 0.50-1.40 One Over Creatinine 1.20 BUN/Creatinine Ratio 13.8 8-20 Calcium 9.5 mg/dL 8.1-9.9 144 Laboratory test 05/05/2008 [facility] CPK (Creatine 102 U/L 0 -[address] Kinase) [place] [address] [phone] Hemoglobin A1c 7.1 % High <6.0 145 Liver Function 05/05/2008 [facility] Total Protein 6.6 GM/DL 6.2-8.[address] [place] [address] [phone] Albumin 3.9 GM/DL 3.6-5.4 Globulin 2.7 GM/DL 2-4 Albumin/Globulin Ratio 1.4 1-3 Bilirubin Total 0.8 mg/dL 0.4-1.5 Bilirubin Direct 0.1 mg/dL 0.1-0.5 Indirect Bilirubin 0.7 mg/dL 0.1-0.75 Alkaline Phosphatase 65 U/L 39-117 Alt (SGPT) 25 U/L 17-63 Ast (Sgot) 23 U/L 12-42 Microalbumin Random 05/05/2008 [facility] Microalbumin 12.0 mg/ L Urine [address] (MG/L) [place] [address] [phone] Urine Creatinine 176.63 mg/dL Juan José Alb/Creatinine Ratio 6.7 UG/MG Less Than 30 146 Comp Metabolic Panel 07/24/2007 [facility] Sodium 139 mmol/L 135-[address] [place] [address] [phone] Potassium 4.8 mmol/L 3.5-5.0 Chloride 103 mmol/L 101-111 Co2 (Carbon Dioxide) 26.0 mmol/L 22-32 Anion Gap 10.0 mmol/L 2-11 147 Glucose 162 mg/dL High 70-105 BUN 21 mg/dL 6-24 Creatinine 1.3 mg/dL 0.5-1.4 One Over Creatinine 0.76 BUN/Creatinine Ratio 16.2 8-20 Calcium 10.1 mg/dL 8.7-10.2 Total Protein 7.4 GM/DL 6.2-8.1 Albumin 4.3 GM/DL 3.6-5.4 Globulin 3.1 GM/DL 2-4 Albumin/Globulin Ratio 1.4 1-3 Bilirubin Total 0.4 mg/dL 0.4-1.5 Alkaline Phosphatase 72 U/L 39-117 Alt (SGPT) 26 U/L 17-63 Ast (Sgot) 26 U/L 12-42 CBC With 07/24/2007 [facility] White Blood 11.1 CUMM High 4.8- 10.8 Electronic Diff [address] Count [place], [place] [id number] [phone] Red Cell Count 4.80 CUMM 4.6-6.2 Hemoglobin 14.4 g/dL 14.0-18.0 Hematocrit 42 % 42-52 Mean Corpuscular Volume 87 um3 80-94 Mean Corpuscular Hemoglob 30 pg 27-31 Mean Corpuscular HGB Cone 35 g/dL 32-36 Redcell Distribution WDTH 13 % 10.5-15 Platelet Count 406 CUMM 150-450 Mean Platelet Volume 6.4 um3 Low 7.4-10.4 Gran % 64.3 % 38-83 Lymph % 24.7 % 20-45 Mononuclear % 7.4 % 1-9 Eosinophil % 3.2 % 0-6 Basophil % 0.4 % 0-2 Abs Lymphs 2.7 1.0-4.8 Abs Mononuclear 0.8 0-0.8 Absolute Neutrophil Count 7.1 1.5-7.7 Abs Eosinophils 0.4 0-0.6 Abs Basophils 0 0-0.2 Comp Metabolic 06/18/2007 [facility] One Over Creatinine 0.90 [address] [place], [place] [address] [phone] Anion Gap 8.0 mmol/L 2-11 149 Albumin/Globulin Ratio 1.3 1-3 Albumin 4.1 GM/DL 3.6-5.4 Alkaline Phosphatase 63 U/L 39-117 Alt (SGPT) 25 U/L 17-63 Ast (Sgot) 21 U/L 12-42 BUN 16 mg/dL 6-24 Calcium 9.3 mg/dL 8.7-10.2 Chloride 104 mmol/L 101-111 Co2 (Carbon Dioxide) 28.0 mmol/L 22-32 Globulin 3.1 GM/DL 2-4 Glucose 171 mg/dL High 70-105 Potassium 4.2 mmol/L 3.5-5.0 Sodium 140 mmol/L 135-145 Bilirubin Total 0.7 mg/dL 0.4-1.5 Total Protein 7.2 GM/DL 6.2-8.1 BUN/Creatinine Ratio 14.5 8-20 Creatinine 1.1 mg/dL 0.5-1.4 Liver Function 06/18/2007 [facility] Bilirubin Direct 0.1 mg/dL 0.1-0.[address] [place] [address] [phone] Indirect Bilirubin 0.6 mg/dL 0.1-0.75 Microalbumin 24HR 06/18/2007 [facility] Microalbumin 20.7 Less Urine [address] (MG/24HR) MG/24HR Than 30 [place] [address] [phone] Microalbumin (mcg/Min) 14.4 MCG/MIN Less Than 20 Hours Of Collection 24 HR Microalbumin (MG/L) 18.0 mg/L Urine Volume Measurement 1150 ML 150 Creatinine 06/18/2007 [facility] Creatinine Random 191.5 mg/dL Clearance [address] [place] [address] [phone] Serum Creatinine/Creat CL 1.1 mg/dL 0.5-1.4 Creat Clearance 139 mL/min High 80-125 Hours Of Collection 24 HR 24- Urine Volume Measurement 1150 ML Laboratory test 06/18/2007 [facility] Vitamin B12 470 pg/mL 180-[address] [place] [address] [phone] Folic Acid > 20.0 NG/ML High 2-16 Lipid Profile 06/18/2007 [facility] Cholesterol/HDL 4.56 1- 4.97 (Trig/Chol/HDL) [address] [place] [address] [phone] Cholesterol 187 mg/dL Less Than 200 151 Triglyceride 113 mg/dL 40-200 High Density Lipoprotein 41 mg/dL 40-60 152 Low Density Lipoprotein 123 mg/dL High Less Than 100 153 Laboratory test 06/18/2007 [facility] PSA Screening 0.80 NG/ML 0-4 [address] [place] [address] [phone] Homocysteine 9 umol/L () 155 Lead 06/18/2007 [facility] Lead 1.2 g/dL 0-25.[address] [place] [address] [phone] Lead Specimen Type VENOUS Laboratory test 04/06/2007 [facility] C Reactive 0.5 mg/dL Less Than finding [address] Protein 0.5 [place], [place] [id number] [phone] Ferritin 116 NG/ML 24-336 Free Thyroxine 0.92 NG/ML 0.61-1.24 157 TSH 0.59 MIU/ML 0.34-5.60 Erythrocyte Sed Rate 29 MM/HR High 0-20 Shanika 04/06/2007 [facility] Antinuclear AB NEGATIVE Negative [address] [place] [address] [phone] Ssa/SSB 04/06/2007 [facility] Ssa NEGATIVE Negative [address] [place] [address] [phone] SSB NEGATIVE Negative Protein Electrophoresis 04/06/2007 [facility] A/G Ratio 1.0 0.9-[address] [place] [address] [phone] Alpha 1 % 3.1 % 2.5-5 Alpha 1 0.22 GM/DL 0.1-0.4 Alpha 2 % 14.3 % High 7-13 Alpha 2 1.03 GM/DL High 0.4-1.0 Albumin % 50.4 % Low 52-65 Albumin 3.63 GM/DL 3.2-5.3 Beta % 13.8 % 8-14 Beta 0.99 GM/DL 0.5-1.1 Gamma % 18.6 % 12-22 Gamma 1.34 GM/DL 0.70-1.7 Total Protein 7.2 GM/DL 6.2-8.1 Laboratory test 02/19/2007 [facility] PSA Screening 0.66 NG/ML 0-[address] [place] [address] [phone] Uric Acid 4.9 mg/dL 2.6-7.2 Erythrocyte Sed Rate 25 MM/HR High 0-20 Hemoglobin A1c 6.9 % High <6.0 158 Basic Metabolic 02/19/2007 [facility] One Over Creatinine 1.[address] [place] [address] [phone] Anion Gap 7.0 mmol/L 2-11 159 BUN 19 mg/dL 6-24 Calcium 9.8 mg/dL 8.7-10.2 Chloride 106 mmol/L 101-111 Co2 (Carbon Dioxide) 28.0 mmol/L 22-32 Glucose 161 mg/dL High 70-105 Potassium 4.3 mmol/L 3.5-5.0 Sodium 141 mmol/L 135-145 BUN/Creatinine Ratio 19.0 8-20 Creatinine 1.0 mg/dL 0.5-1.4 1 Because ethnic data is not always readily available, this report includes an eGFR for both -Americans and non- Americans. The National Kidney Disease Education Program (NKDEP) does not endorse the use of the MDRD equation for patients that are not between the ages of 18 and 70, are , have extremes of body size, muscle mass, or nutritional status, or are non- or non-. According to the National Kidney Foundation, irrespective of diagnosis, the stage of the disease is based on the level of kidney function: Stage Description GFR(mL/min/1.73 m(2)) 1 Kidney damage with normal or decreased GFR 90 2 Kidney damage with mild decrease in GFR 60-89 3 Moderate decrease in GFR 30-59 4 Severe decrease in GFR 15-29 5 Kidney failure <15 (or dialysis) 2 Serum levels of PSA measured using the [employer] DXI [employer] immunoassay should not be interpreted as absolute evidence of the presence or absence of disease. The PSA value should be used in conjunction with other pertinent clinical diagnostic procedures. The values obtained with different assay methods or kits cannot be used interchangeably. 3 [id number] 4 *Ascorbic acid is present which may interfere with detection of blood. 5 SEE RESULT BELOW Name: CARLOS HANKS : [address]: Rosina Mcneil MD Acct: [id number] Unit: [id number] AGE: 61 Location: PAT Re04/14/17 SEX: M Status: REG REF SPEC: [id number] ANKITA: 04/14/17-[address] [facility] [address]: Rosina Mcneil MD REQ: [id number] RECD: 04/14/17 STATUS: JANIS SONG DR: Angel Shankar MD _ SOURCE: URINE SPDESC: ORDERED: Urine Culture QUERIES: Urine Source: Clean Catch Procedure Result Reported Site Urine Culture Final 04/15/17- 1306 ML No Growth (<1,000 CFU/mL) * ML - MAIN LAB ([facility]) . END OF REPORT * ML = Testing performed at Main Lab DEPARTMENT OF PATHOLOGY, [address] [place] [address] Omid Hirsch M.D. Director [facility] # [id number] 6 Because ethnic data is not always readily available, this report includes an eGFR for both -Americans and non- Americans. The National Kidney Disease Education Program (NKDEP) does not endorse the use of the MDRD equation for patients that are not between the ages of 18 and 70, are , have extremes of body size, muscle mass, or nutritional status, or are non- or non-. According to the National Kidney Foundation, irrespective of diagnosis, the stage of the disease is based on the level of kidney function: Stage Description GFR(mL/min/1.73 m(2)) 1 Kidney damage with normal or decreased GFR 90 2 Kidney damage with mild decrease in GFR 60-89 3 Moderate decrease in GFR 30-59 4 Severe decrease in GFR 15-29 5 Kidney failure <15 (or dialysis) 7 Therapeutic target for the treatment of diabetes mellitus patients is <7% HBA1C, and in selective patients <6.0%. Please refer to [place] [employer] Association diabetic care guidelines for further information. 8 FASTING 10 HOUR 9 Serologic response to B. burgdorferi infection is not detected, but cannot rule out early infection during which low or undetectable antibody levels to B. burgdorferi may be present. If clinically indicated, a new serum specimen should be submitted in 7-14 days. Test Performed by: [facility] [address] [place] [address] 10 Serum levels of PSA measured using the [employer] DXI Hybritech immunoassay should not be interpreted as absolute evidence of the presence or absence of disease. The PSA value should be used in conjunction with other pertinent clinical diagnostic procedures. The values obtained with different assay methods or kits cannot be used interchangeably. 11 Serologic response to B. burgdorferi infection is not detected, but cannot rule out early infection during which low or undetectable antibody levels to B. burgdorferi may be present. If clinically indicated, a new serum specimen should be submitted in 7-14 days. Test Performed by: [facility] [employer] [facility] [address] [place] [id number] 12 Copy Result to: ALLYSSA GUY ([id number]) 13 Acute inflammation: >10.00 14 FASTING 15 Therapeutic target for the treatment of diabetes Mellitus patients is <7% HBA1C, and in selective patients <6.0%.Please refer to [place] [employer] Diabetic care guidelines for further information. 16 Unable to calculate due to low microalbumin 17 FASTING 18 Desirable <150 Borderline high 150-199 High 200-499 Very High >500 19 Desirable <200 Borderline high 200-239 High >239 20 Low <40 Desirable: 40-60 High: >60 21 Desirable: <100 mg/dL Near Optimal: 100-129 mg/dL Borderline High: 130-159 mg/dL High: 160-189 mg/dL Very High: >189 mg/dL 22 SEE RESULT BELOW Name: CARLOS HANKS : [address]: Jeison Lugo MD Acct: [id number] Unit: [id number] AGE: 60 Location: [place] Re12/29/15 SEX: M Status: REG [facility] [place] SPEC: [id number] ANKITA: 12/29/15- SUBM DR: Jeison Lugo MD REQ: [id number] RECD: 12/29/15 STATUS: SOUT _ ORDERED: LEVEL III FINAL DIAGNOSIS Knee, left, shavings: -- 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 Articular cartilage with reactive features and synovium with fibrosis and myxoid change. PRE-OPERATIVE DIAGNOSIS Complex tear medial meniscus left knee GROSS DESCRIPTION The specimen is received in formalin labeled, Arthroscopic Shavings Left Knee , and consists of a 2.4 x 2.1 x 0.4 cm aggregate of yellow and white tissue fragments. Motorboat Mechanic Inboard/Outboard sections, one cassette. Signed (signature on file) Omid Hirsch MD 1411 END OF REPORT * ML = Testing performed at Main Lab DEPARTMENT OF PATHOLOGY, [address] [place] [address] Omid Hirsch M.D. Director [facility] # [id number] 23 Retail Customer Service Representative: [id number] ABHIJIT GOMEZ 24 Retail Customer Service Representative: [id number] Jhoan Cardenas 25 Because ethnic data is not always readily available, this report includes an eGFR for both -Americans and non- Americans. The National Kidney Disease Education Program (NKDEP) does not endorse the use of the MDRD equation for patients that are not between the ages of 18 and 70, are , have extremes of body size, muscle mass, or nutritional status, or are non- or non-. According to the National Kidney Foundation, irrespective of diagnosis, the stage of the disease is based on the level of kidney function: Stage Description GFR(mL/min/1.73 m(2)) 1 Kidney damage with normal or decreased GFR 90 2 Kidney damage with mild decrease in GFR 60-89 3 Moderate decrease in GFR 30-59 4 Severe decrease in GFR 15-29 5 Kidney failure <15 (or dialysis) 26 Therapeutic target for the treatment of diabetes Mellitus patients is <7% HBA1C, and in selective patients <6.0%.Please refer to [place] [employer] Diabetic care guidelines for further information. 27 Because ethnic data is not always readily available, this report includes an eGFR for both -Americans and non- Americans. The National Kidney Disease Education Program (NKDEP) does not endorse the use of the MDRD equation for patients that are not between the ages of 18 and 70, are , have extremes of body size, muscle mass, or nutritional status, or are non- or non-. According to the National Kidney Foundation, irrespective of diagnosis, the stage of the disease is based on the level of kidney function: Stage Description GFR(mL/min/1.73 m(2)) 1 Kidney damage with normal or decreased GFR 90 2 Kidney damage with mild decrease in GFR 60-89 3 Moderate decrease in GFR 30-59 4 Severe decrease in GFR 15-29 5 Kidney failure <15 (or dialysis) 28 REFERENCE VALUE (Peripheral vein specimen) Na-deplete, upright: Mean: 5.9 Range: 2.9-10.8 Na-replete, upright: Mean: 1.0 Range: < or =0.6-3.0 ADDITIONAL INFORMATION Testing performed by Liquid Chromatography-Tandem Mass Spectrometry (LC-MS/MS). Test Performed by: [place] [address] [employer] Operator: Mando Gutiérrez II, M.D., Ph.D. 29 ADDITIONAL INFORMATION Reference range for patients 11 years and older is based on upright A.M. collection from subjects without sodium restrictions. Test Performed by: [place] [address] [employer] Operator: Mando Gutiérrez II, M.D., Ph.D. 30 Because ethnic data is not always readily available, this report includes an eGFR for both -Americans and non- Americans. The National Kidney Disease Education Program (NKDEP) does not endorse the use of the MDRD equation for patients that are not between the ages of 18 and 70, are , have extremes of body size, muscle mass, or nutritional status, or are non- or non-. According to the National Kidney Foundation, irrespective of diagnosis, the stage of the disease is based on the level of kidney function: Stage Description GFR(mL/min/1.73 m(2)) 1 Kidney damage with normal or decreased GFR 90 2 Kidney damage with mild decrease in GFR 60-89 3 Moderate decrease in GFR 30-59 4 Severe decrease in GFR 15-29 5 Kidney failure <15 (or dialysis) 31 Therapeutic target for the treatment of diabetes Mellitus patients is <7% HBA1C, and in selective patients <6.0%.Please refer to [place] [employer] Association Diabetic care guidelines for further information. 32 Serum levels of PSA measured using the [employer] DXI Hybritech immunoassay should not be interpreted as absolute evidence of the presence or absence of disease. The PSA value should be used in conjunction with other pertinent clinical diagnostic procedures. The values obtained with different assay methods or kits cannot be used interchangeably. 33 Desirable <150 Borderline high 150-199 High 200-499 Very High >500 34 Desirable <200 Borderline high 200-239 High >239 35 Low <40 Desirable: 40-60 High: >60 36 Desirable: <100 mg/dL Near Optimal: 100-129 mg/dL Borderline High: 130-159 mg/dL High: 160-189 mg/dL Very High: >189 mg/dL 37 Because ethnic data is not always readily available, this report includes an eGFR for both -Americans and non- Americans. The National Kidney Disease Education Program (NKDEP) does not endorse the use of the MDRD equation for patients that are not between the ages of 18 and 70, are , have extremes of body size, muscle mass, or nutritional status, or are non- or non-. According to the National Kidney Foundation, irrespective of diagnosis, the stage of the disease is based on the level of kidney function: Stage Description GFR(mL/min/1.73 m(2)) 1 Kidney damage with normal or decreased GFR 90 2 Kidney damage with mild decrease in GFR 60-89 3 Moderate decrease in GFR 30-59 4 Severe decrease in GFR 15-29 5 Kidney failure <15 (or dialysis) 38 RUN DATE: 06/10/14 [facility] LAB LIVE PAGE 1 RUN TIME: 5655 [address] [place], [place] [address] Specimen Inquiry Name: CARLOS HANKS Zeke : [address]: Minor Martin MD Acct: [id number] Unit: [id number] AGE: 58 Location: ENDO Re06/09/14 SEX: M Status: REG REF SPEC: [id number] ANKITA: 06/09/14-[address] [facility] [address]: Minor Martin MD REQ: [id number] RECD: 06/09/14-1215 STATUS: AAMIR SONG DR: Angel Shankar MD _ ORDERED: LEVEL IV/2 FINAL DIAGNOSIS 1. Colon, 50 cm, biopsy: -- Hyperplastic polyp. 2. Colon, rectum, 50 cm, biopsy: -- Hyperplastic polyp. CLINICAL HISTORY No additional information provided POST-OPERATIVE DIAGNOSIS Screening colonoscopy - 2 polyps removed at 50 cm. and rectum GROSS DESCRIPTION 1. The specimen is received in formalin labeled, Biopsy Polyp at 50 cm, and consists of a 0.4 x 0.3 x 0.2 cm huynh irregular soft tissue fragment, which is submitted entirely in one cassette. 2. The specimen is received in formalin labeled, Biopsy Rectal Polyp, and consists of two huynh-pink irregular soft tissue fragments averaging 0.2 x 0.2 x 0.2 cm, which are submitted entirely in one cassette. Signed (signature on file) Omid Hirsch MD 6910 END OF REPORT * ML = Testing performed at Main Lab DEPARTMENT OF PATHOLOGY, [address] [place] [address] Omid Hirsch M.D. Director [facility] # [id number] FASTING 10 HOUR 40 Desirable <150 Borderline high 150-199 High 200-499 Very High >500 41 Desirable <200 Borderline high 200-239 High >239 42 Low <40 Desirable: 40-60 High: >60 43 Desirable <100 Near Optimal 100-129 Borderline high 130-159 High 160-189 Very High >189 44 --- 02/04/14 1236 --- Hemoglobin A1c previously reported as: 8.2 H % Corrected result! Wrong result was 8.2. Therapeutic target for the treatment of diabetes Mellitus patients is <7% HBA1C, and in selective patients <6.0%.Please refer to [place] Diabetes Association Diabetic care guidelines for further information. 45 REFERENCE VALUE (Peripheral vein specimen) Na-deplete, upright: Mean: 5.9 Range: 2.9-10.8 Na-replete, upright: Mean: 1.0 Range: <=0.6-3.0 Test Performed by: [facility] [address] [place] [address] [employer] Operator: Dalton Shea M.D. 46 ADDITIONAL INFORMATION Reference range for patients 11 years and older is based on upright A.M. collection from subjects without sodium restrictions. Test Performed by: [facility] - [address] [address] [employer] Operator: Dalton Shea M.D. 47 RUN DATE: 11/22/13 [facility] LAB LIVE PAGE 1 RUN TIME: [address] [place] [address] Specimen Inquiry Name: CARLOS HANKS : [address]: Edouard Su NP Acct: [id number] Unit: [id number] AGE: 58 Location: [facility] Re11/20/13 SEX: M Status: REG REF SPEC: [id number] ANKITA: 11/20/13-[address] [facility] [address]: Edouard Su NP REQ: [id number] RECD: 11/20/133398 STATUS: COMP _ SOURCE: THROAT SPDESC: ORDERED: Throat Culture QUERIES: Medent Number [id number] Procedure Result Verified Site Throat Culture Final 11/22/13- 1015 ML Organism 1 STREP GROUP A Quantity 2+ Organism 2 NORMAL HA Quantity 3+ Susceptibility testing of penicillins and other B-lactams approved by FDA for treatment of Streptococcus pyogenes (Group A Strep) and Streptococcus agalactiae (Group B Strep) is not necessary for clinical purposes and need not be done routinely, since as with vancomycin, resistant strains have not been recognized. (CLSI C328-U51;p.66) Positive isolates will be saved for one week. Please call the Microbiology Laboratory if further susceptibility testing is needed. END OF REPORT * ML = Testing performed at Main Lab DEPARTMENT OF PATHOLOGY, [address] [place] [address] Omid Hirsch M.D. Director [facility] # [id number] 48 Serum levels of PSA measured using the [employer] DXI Hybritech immunoassay should not be interpreted as absolute evidence of the presence or absence of disease. The PSA value should be used in conjunction with other pertinent clinical diagnostic procedures. The values obtained with different assay methods or kits cannot be used interchangeably. 49 Therapeutic target for the treatment of diabetes Mellitus patients is <7% HBA1C, and in selective patients <6.0%.Please refer to [place] [employer] Diabetic care guidelines for further information. 50 Microalbuminuria in a random sample is defined as: Microalbumin/Creatinine ratio of 30-299 ug/mg. 51 FASTING 52 Desirable <150 Borderline high 150-199 High 200-499 Very High >500 53 Desirable <200 Borderline high 200-239 High >239 54 Low <40 Desirable: 40-60 High: >60 55 Desirable <100 Near Optimal 100-129 Borderline high 130-159 High 160-189 Very High >189 56 Desirable <150 Borderline high 150-199 High 200-499 Very High >500 57 Desirable <200 Borderline high 200-239 High >239 58 Low <40 Desirable: 40-60 High: >60 59 Desirable <100 Near Optimal 100-129 Borderline high 130-159 High 160-189 Very High >189 60 FASTING 61 Because ethnic data is not always readily available, this report includes an eGFR for both -Americans and non- Americans. The National Kidney Disease Education Program (NKDEP) does not endorse the use of the MDRD equation for patients that are not between the ages of 18 and 70, are , have extremes of body size, muscle mass, or nutritional status, or are non- or non-. According to the National Kidney Foundation, irrespective of diagnosis, the stage of the disease is based on the level of kidney function: Stage Description GFR(mL/min/1.73 m(2)) 1 Kidney damage with normal or decreased GFR 90 2 Kidney damage with mild decrease in GFR 60-89 3 Moderate decrease in GFR 30-59 4 Severe decrease in GFR 15-29 5 Kidney failure <15 (or dialysis) 62 It is recognized that currently available assays for the detection of antibodies to HIV-1 and/or HIV-2 may not detect all infected individuals. HIV antibodies may be undetectable in some stages of the infection and in some clinical conditions. The performance of this assay has not been established for populations of infants or children. Assayed by Chemiluminescence Microparticle Immunoassay on the Siemens Advia Centaur CP. Values obtained with different methods or kits cannot be used interchangeably.The diagnostic specificity of the [employer] Centaur 1/O/2 Enhanced assay in the low risk population was 99.90% (6052/6058) with a 95% confidence interval of 99.78 to 99.96%. 63 AM Cortisol 8.7-22.4 PM Cortisol Less than 10 64 RUN DATE: 09/23/12 [facility] LAB LIVE PAGE 1 RUN TIME: [address] [place] [address] Specimen Inquiry Name: CARLOS HANKS Zeke : [address]: Rubén Warren MD Acct: [id number] Unit: [id number] AGE: 57 Location: OR Re09/21/12 SEX: M Status: REG SDC SPEC: [id number] ANKITA: 09/21/12-[address] [facility] [address]: Rubén Warren MD REQ: [id number] RECD: 09/21/12 STATUS: JANIS SONG DR: Angel Shankar MD _ SOURCE: URINE SPDESC: ORDERED: Urine Culture QUERIES: Urine Source: Ureter Procedure Result Verified Site Urine Culture Final 09/23/12- 921 ML No Growth Day 2 (<1,000 CFU/mL) END OF REPORT * ML = Testing performed at Main Lab DEPARTMENT OF PATHOLOGY, [address] [place] [address] Omid Hirsch M.D. Director [facility] Permit #[id number] 65 Because ethnic data is not always readily available, this report includes an eGFR for both -Americans and non- Americans. The National Kidney Disease Education Program (NKDEP) does not endorse the use of the MDRD equation for patients that are not between the ages of 18 and 70, are , have extremes of body size, muscle mass, or nutritional status, or are non- or non-. According to the National Kidney Foundation, irrespective of diagnosis, the stage of the disease is based on the level of kidney function: Stage Description GFR(mL/min/1.73 m(2)) 1 Kidney damage with normal or decreased GFR 90 2 Kidney damage with mild decrease in GFR 60-89 3 Moderate decrease in GFR 30-59 4 Severe decrease in GFR 15-29 5 Kidney failure <15 (or dialysis) 66 RUN DATE: 08/19/12 [facility] LAB LIVE PAGE 1 RUN TIME: [address] [place] [address] Specimen Inquiry Name: CARLOS HANKS : [address]: Steffanie Glover MD Acct: [id number] Unit: [id number] AGE: 57 Location: [facility] Re08/17/12 SEX: M Status: REG REF SPEC: [id number] ANKITA: 08/17/12-[address] [facility] [address]: Steffanie Glover MD REQ: [id number] RECD: 08/17/12 STATUS: COMP _ SOURCE: URINE SPDESC: ORDERED: Urine Culture QUERIES: Medent Number [id number] Procedure Result Verified Site Urine Culture Final 08/19/12- 0948 ML Organism 1 NORMAL HA [place] Count 10-25,000 (Moderate) CFU/ML END OF REPORT * ML = Testing performed at Main Lab DEPARTMENT OF PATHOLOGY, [address] [place] [address] Omid Hirsch M.D. Director [facility] Permit #[id number] 67 Reference range based on upright A.M. collection from subjects on ad georgie sodium uptake. Test Performed by: [place] [address] [employer]ching Press Operator: Herbert Jara III, M.D. 68 -- REFERENCE VALUE -- (Peripheral vein specimen) Na-deplete, upright: Mean: 5.9 Range: 2.9-10.8 Na-replete, upright: Mean: 1.0 Range: <=0.6-3.0 Test Performed by: [place] [address] [employer]ching Press Operator: Herbert Jara III, M.D. 69 Because ethnic data is not always readily available, this report includes an eGFR for both -Americans and non- Americans. The National Kidney Disease Education Program (NKDEP) does not endorse the use of the MDRD equation for patients that are not between the ages of 18 and 70, are , have extremes of body size, muscle mass, or nutritional status, or are non- or non-. According to the National Kidney Foundation, irrespective of diagnosis, the stage of the disease is based on the level of kidney function: Stage Description GFR(mL/min/1.73 m(2)) 1 Kidney damage with normal or decreased GFR 90 2 Kidney damage with mild decrease in GFR 60-89 3 Moderate decrease in GFR 30-59 4 Severe decrease in GFR 15-29 5 Kidney failure <15 (or dialysis) 70 Microalbuminuria in a random sample is defined as: Microalbumin/Creatinine ratio of 30-299 ug/mg. 71 Because ethnic data is not always readily available, this report includes an eGFR for both -Americans and non- Americans. The National Kidney Disease Education Program (NKDEP) does not endorse the use of the MDRD equation for patients that are not between the ages of 18 and 70, are , have extremes of body size, muscle mass, or nutritional status, or are non- or non-. According to the National Kidney Foundation, irrespective of diagnosis, the stage of the disease is based on the level of kidney function: Stage Description GFR(mL/min/1.73 m(2)) 1 Kidney damage with normal or decreased GFR 90 2 Kidney damage with mild decrease in GFR 60-89 3 Moderate decrease in GFR 30-59 4 Severe decrease in GFR 15-29 5 Kidney failure <15 (or dialysis) 72 Therapeutic target for the treatment of diabetes Mellitus patients is <7% HBA1C, and in selective patients <6.0%.Please refer to [place] [employer] Diabetic care guidelines for further information. 73 Effective January 18, 2012 new APTT reference and therapeutic values have been implemented. 74 The INR(International Normalized Ratio) was adopted by the World Health Organization (WHO) in 1983 as a standardized system of reporting PT (Prothrombin Time). The Centers for Disease Control (CDC) states that reporting of PT results in INR only is the preferred method. Recommended INR for Patients on Oral Anticoagulants Prophylaxis 2.0 - 3.0 Treatment of thrombosis 2.0 - 3.0 Prevention of embolism 2.0 - 3.0 Prevention of embolism from prosthetic heart valves 2.5 - 3.5 75 A metabolite of Naproxen, O-desmethylnaproxen, has been shown to interfere with the Jendrassik-Talmage method for measuring total bilirubin. Samples from patients who have taken Naproxen have shown spurious elevation in total bilirubin levels. 76 Because ethnic data is not always readily available, this report includes an eGFR for both -Americans and non- Americans. The National Kidney Disease Education Program (NKDEP) does not endorse the use of the MDRD equation for patients that are not between the ages of 18 and 70, are , have extremes of body size, muscle mass, or nutritional status, or are non- or non-. According to the National Kidney Foundation, irrespective of diagnosis, the stage of the disease is based on the level of kidney function: Stage Description GFR(mL/min/1.73 m(2)) 1 Kidney damage with normal or decreased GFR 90 2 Kidney damage with mild decrease in GFR 60-89 3 Moderate decrease in GFR 30-59 4 Severe decrease in GFR 15-29 5 Kidney failure <15 (or dialysis) 77 RUN DATE: 02/08/12 [facility] LAB LIVE PAGE 1 RUN TIME: [address], [place] [address] Specimen Inquiry Name: CARLOS HANKS : [address]: Raad VALERIO, Angel Rubio Acct: [id number] Unit: [id number] AGE: 56 Location: [facility] Re02/06/12 SEX: M Status: REG REF SPEC: [id number] ANKITA: 02/06/12-[address]: Raad VALERIO,Hadley Rubio REQ: [id number] RECD: 02/06/121055 EXPLICIT FAX#: [phone] STATUS: COMP OTHR DR: Abdiaziz Betts MD,Fan _ SOURCE: URINE SPDESC: ORDERED: Urine Culture COMMENTS: cc Dr. Fan Rodriguez, FAX: [phone] QUERIES: Medent Number [id number] Procedure Result Verified Site Urine Culture Final 02/08/12- 1132 ML Organism 1 NORMAL HA [place] Count 1-10,000 (Few) CFU/ML END OF REPORT * ML = Testing performed at Main Lab DEPARTMENT OF PATHOLOGY, [address] [place] [address] Omid Hirsch M.D. Director [facility] Permit #[id number] 78 Because ethnic data is not always readily available, this report includes an eGFR for both -Americans and non- Americans. The National Kidney Disease Education Program (NKDEP) does not endorse the use of the MDRD equation for patients that are not between the ages of 18 and 70, are , have extremes of body size, muscle mass, or nutritional status, or are non- or non-. According to the National Kidney Foundation, irrespective of diagnosis, the stage of the disease is based on the level of kidney function: Stage Description GFR(mL/min/1.73 m(2)) 1 Kidney damage with normal or decreased GFR 90 2 Kidney damage with mild decrease in GFR 60-89 3 Moderate decrease in GFR 30-59 4 Severe decrease in GFR 15-29 5 Kidney failure <15 (or dialysis) 79 Desirable: Less than 200 MG/DL Borderline-High Risk: 200-239 MG/DL High-Risk: 240 MG/DL and over 80 HDL Interpretation: Undesirable: High Risk: Less than 40 MG/DL Desirable: Low Risk: Greater than 60 MG/DL 81 LDL Interpretation: Low Risk Optimal Level: LDL Less than 100 MG/DL Near or Above Optimal: LDL 100-129 MG/DL Borderline High Risk: LDL 130-159 MG/DL High Risk: LDL 160-189 MG/DL Very High Risk: LDL Greater than 189 MG/DL 82 Anion gap measurement may be of limited value in the presence of any alkalosis, especially in a combined acid base disorder. . 83 Because ethnic data is not always readily available, this report includes an eGFR for both -Americans and non- Americans. The National Kidney Disease Education Program (NKDEP) does not endorse the use of the MDRD equation for patients that are not between the ages of 18 and 70, are , have extremes of body size, muscle mass, or nutritional status, or are non- or non-. According to the National Kidney Foundation, irrespective of diagnosis, the stage of the disease is based on the level of kidney function: Stage Description GFR(mL/min/1.73 m(2)) 1 Kidney damage with normal or decreased GFR 90 2 Kidney damage with mild decrease in GFR 60-89 3 Moderate decrease in GFR 30-59 4 Severe decrease in GFR 15-29 5 Kidney failure <15 (or dialysis) [address] 1 85 * SERUM LEVELS OF PSA MEASURED USING THE JellyCloud ACCESS HYBRITECH IMMUNOASSAY SHOULD NOT BE INTERPRETED ABSOLUTE EVIDENCE OF THE PRESENCE OR ABSENCE OF DISEASE. THE PSA VALUE SHOULD BE USED IN CONJUNCTION WITH OTHER PERTINENT CLINICAL DIAGNOSTIC PROCEDURES. The values obtained with different assay methods or kits cannot be used interchangeably. 86 PER ORDER PATIENT TO BE FASTING, PER PATIENT THEY WERE NOT FASTING. 87 MICROALBUMINURIA IN A RANDOM SAMPLE IS DEFINED : MICROALBUMIN/CREATININE RATIO OF 30-299 ug/mg. . 88 Anion gap measurement may be of limited value in the presence of any alkalosis, especially in a combined acid base disorder. . 89 A metabolite of Naproxen, O-desmethylnaproxen, has been shown to interfere with the Jendrassik-Joaquina method for measuring total bilirubin. Samples from patients who have taken Naproxen have shown spurious elevation in total bilirubin levels. 90 Because ethnic data is not always readily available, this report includes an eGFR for both -Americans and non- Americans. The National Kidney Disease Education Program (NKDEP) does not endorse the use of the MDRD equation for patients that are not between the ages of 18 and 70, are , have extremes of body size, muscle mass, or nutritional status, or are non- or non-. According to the National Kidney Foundation, irrespective of diagnosis, the stage of the disease is based on the level of kidney function: Stage Description GFR(mL/min/1.73 m(2)) 1 Kidney damage with normal or decreased GFR 90 2 Kidney damage with mild decrease in GFR 60-89 3 Moderate decrease in GFR 30-59 4 Severe decrease in GFR 15-29 5 Kidney failure <15 (or dialysis) 91 CHOLESTEROL INTERPRETATION: Desirable: Less than 200 MG/DL Borderline-High Risk: 200-239 MG/DL High-Risk: 240 MG/DL and over 92 HDL INTERPRETATION: Undesirable: High Risk: Less than 40 MG/DL Desirable: Low Risk: Greater than 60 MG/DL 93 LDL INTERPRETATION: Low Risk Optimal Level: LDL Less than 100 MG/DL Near or Above Optimal: LDL 100-129 MG/DL Borderline High Risk: LDL 130-159 MG/DL High Risk: LDL 160-189 MG/DL Very High Risk: LDL Greater than 189 MG/DL 94 THERAPEUTIC TARGET FOR THE TREATMENT OF DIABETES MELLITUS PATIENTS IS <7% HBA1C, AND IN SELECTIVE PATIENTS <6.0%. PLEASE REFER TO [employer] DIABETIC CARE GUIDELINES FOR FURTHER INFORMATION. 95 FASTING 96 Test Performed by: [facility] Dpt of Lab Med and Pathology [address] [place] [address] Stretching Press Operator: Herbert Jara III, M.D. 97 Anion gap measurement may be of limited value in the presence of any alkalosis, especially in a combined acid base disorder. . 98 Note change in reference range as of 11/08/07. The change was based on recommendations from the [place] [employer]. 99 A metabolite of Naproxen, O-desmethylnaproxen, has been shown to interfere with the Jendrassik-Talmage method for measuring total bilirubin. Samples from patients who have taken Naproxen have shown spurious elevation in total bilirubin levels. 100 Because ethnic data is not always readily available, this report includes an eGFR for both -Americans and non- Americans. The National Kidney Disease Education Program (NKDEP) does not endorse the use of the MDRD equation for patients that are not between the ages of 18 and 70, are , have extremes of body size, muscle mass, or nutritional status, or are non- or non-. According to the National Kidney Foundation, irrespective of diagnosis, the stage of the disease is based on the level of kidney function: Stage Description GFR(mL/min/1.73 m(2)) 1 Kidney damage with normal or decreased GFR 90 2 Kidney damage with mild decrease in GFR 60-89 3 Moderate decrease in GFR 30-59 4 Severe decrease in GFR 15-29 5 Kidney failure <15 (or dialysis) 101 CHOLESTEROL INTERPRETATION: Desirable: Less than 200 MG/DL Borderline-High Risk: 200-239 MG/DL High-Risk: 240 MG/DL and over 102 HDL INTERPRETATION: Undesirable: High Risk: Less than 40 MG/DL Desirable: Low Risk: Greater than 60 MG/DL 103 LDL INTERPRETATION: Low Risk Optimal Level: LDL Less than 100 MG/DL Near or Above Optimal: LDL 100-129 MG/DL Borderline High Risk: LDL 130-159 MG/DL High Risk: LDL 160-189 MG/DL Very High Risk: LDL Greater than 189 MG/DL 104 FASTING COLLECTED FROM 10/25 616 THROUGH 10/26 729 105 THERAPEUTIC TARGET FOR THE TREATMENT OF DIABETES MELLITUS PATIENTS IS <7% HBA1C, AND IN SELECTIVE PATIENTS <6.0%. PLEASE REFER TO [employer] DIABETIC CARE GUIDELINES FOR FURTHER INFORMATION. 106 CHOLESTEROL INTERPRETATION: Desirable: Less than 200 MG/DL Borderline-High Risk: 200-239 MG/DL High-Risk: 240 MG/DL and over 107 HDL INTERPRETATION: Undesirable: High Risk: Less than 40 MG/DL Desirable: Low Risk: Greater than 60 MG/DL 108 LDL INTERPRETATION: Low Risk Optimal Level: LDL Less than 100 MG/DL Near or Above Optimal: LDL 100-129 MG/DL Borderline High Risk: LDL 130-159 MG/DL High Risk: LDL 160-189 MG/DL Very High Risk: LDL Greater than 189 MG/DL 109 Anion gap measurement may be of limited value in the presence of any alkalosis, especially in a combined acid base disorder. . 110 Note change in reference range as of 11/08/07. The change was based on recommendations from the [place] [employer]. 111 Please note change in reference range effective 07 . 112 A metabolite of Naproxen, O-desmethylnaproxen, has been shown to interfere with the Jendrassik-Talmage method for measuring total bilirubin. Samples from patients who have taken Naproxen have shown spurious elevation in total bilirubin levels. 113 Because ethnic data is not always readily available, this report includes an eGFR for both -Americans and non- Americans. The National Kidney Disease Education Program (NKDEP) does not endorse the use of the MDRD equation for patients that are not between the ages of 18 and 70, are , have extremes of body size, muscle mass, or nutritional status, or are non- or non-. According to the National Kidney Foundation, irrespective of diagnosis, the stage of the disease is based on the level of kidney function: Stage Description GFR(mL/min/1.73 m(2)) 1 Kidney damage with normal or decreased GFR 90 2 Kidney damage with mild decrease in GFR 60-89 3 Moderate decrease in GFR 30-59 4 Severe decrease in GFR 15-29 5 Kidney failure <15 (or dialysis) 114 MICROALBUMIN CONCENTRATIONS ARE USED TO CLASSIFY PATIENTS NORMAL: LESS THAN 30 MG/24HRS MICROALBUMINURIA: 30-300 MG/24HRS CLINICAL ALBUMINURIA: GREATER THAN 300 MG/24HRS THE [employer] POSITION STATEMENT ON DIABETIC NEPHROPATHY STATES THAT MICROALBUMINURIA IS PRESENT IF URINARY ALBUMIN EXCRETION EXCEEDS 30 MG/24HRS (20 MCG/MIN). THE THRESHOLD FOR CLINICAL ALBUMINURIA IS REACHED AT 300 MG/24HRS (200 MCG/MIN). THE CLASSIFICATION OF A PATIENT SHOULD BE BASED UPON AT LEAST 2 OF 3 ABNORMAL RESULTS ON SPECIMENS COLLECTED WITHIN A 3 TO 6 MONTH TIME FRAME. REFERENCE: [employer], POSITION STATEMENT, DIABETIC NEPHROPATHY, DIABETES CARE, 20, SUPPLEMENT 1, S24-S27, 1996. . 115 REVIEWED BY SHANTI MUNOZ MD 116 NORMAL ELECTROPHORETIC PATTERN. 117 NORMAL SERUM IMMUNOFIXATION ELECTROPHORETIC PATTERN. NO MONOCLONAL PROTEIN DETECTED. 118 Anion gap measurement may be of limited value in the presence of any alkalosis, especially in a combined acid base disorder. . 119 Note change in reference range as of 11/08/07. The change was based on recommendations from the [place] [employer]. 120 Please note change in reference range effective 07 . 121 Because ethnic data is not always readily available, this report includes an eGFR for both -Americans and non- Americans. The National Kidney Disease Education Program (NKDEP) does not endorse the use of the MDRD equation for patients that are not between the ages of 18 and 70, are , have extremes of body size, muscle mass, or nutritional status, or are non- or non-. According to the National Kidney Foundation, irrespective of diagnosis, the stage of the disease is based on the level of kidney function: Stage Description GFR(mL/min/1.73 m(2)) 1 Kidney damage with normal or decreased GFR 90 2 Kidney damage with mild decrease in GFR 60-89 3 Moderate decrease in GFR 30-59 4 Severe decrease in GFR 15-29 5 Kidney failure <15 (or dialysis) 122 THERAPEUTIC TARGET FOR THE TREATMENT OF DIABETES MELLITUS PATIENTS IS <7% HBA1C, AND IN SELECTIVE PATIENTS <6.0%. PLEASE REFER TO [employer] DIABETIC CARE GUIDELINES FOR FURTHER INFORMATION. 123 PLEASE NOTE CHANGE IN REFERENCE RANGE OF 03/27/06. 124 Please note change in reference range effective 08 . 125 FINAL: NO GROWTH DAY 2 (<1,000 CFU/mL) 126 FASTING 127 THERAPEUTIC TARGET FOR THE TREATMENT OF DIABETES MELLITUS PATIENTS IS <7% HBA1C, AND IN SELECTIVE PATIENTS <6.0%. PLEASE REFER TO [employer] DIABETIC CARE GUIDELINES FOR FURTHER INFORMATION. 128 * SERUM LEVELS OF PSA MEASURED USING THE [employer]ACHANA ACCESS HYBRITECH IMMUNOASSAY SHOULD NOT BE INTERPRETED ABSOLUTE EVIDENCE OF THE PRESENCE OR ABSENCE OF DISEASE. THE PSA VALUE SHOULD BE USED IN CONJUNCTION WITH OTHER PERTINENT CLINICAL DIAGNOSTIC PROCEDURES. 129 CHOLESTEROL INTERPRETATION: Desirable: Less than 200 MG/DL Borderline-High Risk: 200-239 MG/DL High-Risk: 240 MG/DL and over 130 HDL INTERPRETATION: Undesirable: High Risk: Less than 40 MG/DL Desirable: Low Risk: Greater than 60 MG/DL 131 LDL INTERPRETATION: Low Risk Optimal Level: LDL Less than 100 MG/DL Near or Above Optimal: LDL 100-129 MG/DL Borderline High Risk: LDL 130-159 MG/DL High Risk: LDL 160-189 MG/DL Very High Risk: LDL Greater than 189 MG/DL 132 Anion gap measurement may be of limited value in the presence of any alkalosis, especially in a combined acid base disorder. . 133 Note change in reference range as of 11/08/07. The change was based on recommendations from the [place] [employer]. 134 Please note change in reference range effective 07 . 135 A metabolite of Naproxen, O-desmethylnaproxen, has been shown to interfere with the Jendrassik-Joaquina method for measuring total bilirubin. Samples from patients who have taken Naproxen have shown spurious elevation in total bilirubin levels. 136 Because ethnic data is not always readily available, this report includes an eGFR for both -Americans and non- Americans. The National Kidney Disease Education Program (NKDEP) does not endorse the use of the MDRD equation for patients that are not between the ages of 18 and 70, are , have extremes of body size, muscle mass, or nutritional status, or are non- or non-. According to the National Kidney Foundation, irrespective of diagnosis, the stage of the disease is based on the level of kidney function: Stage Description GFR(mL/min/1.73 m(2)) 1 Kidney damage with normal or decreased GFR 90 2 Kidney damage with mild decrease in GFR 60-89 3 Moderate decrease in GFR 30-59 4 Severe decrease in GFR 15-29 5 Kidney failure <15 (or dialysis) 137 Test Performed by: [facility] Dpt of Lab Med and Pathology [address] [place] [id number] Stretching Press Operator: Herbert Jara III, M.D. 138 * SERUM LEVELS OF PSA MEASURED USING THE [employer] RACHANA ACCESS HYBRITECH IMMUNOASSAY SHOULD NOT BE INTERPRETED ABSOLUTE EVIDENCE OF THE PRESENCE OR ABSENCE OF DISEASE. THE PSA VALUE SHOULD BE USED IN CONJUNCTION WITH OTHER PERTINENT CLINICAL DIAGNOSTIC PROCEDURES. 139 CHOLESTEROL INTERPRETATION: Desirable: Less than 200 MG/DL Borderline-High Risk: 200-239 MG/DL High-Risk: 240 MG/DL and over 140 HDL INTERPRETATION: Undesirable: High Risk: Less than 40 MG/DL Desirable: Low Risk: Greater than 60 MG/DL 141 LDL INTERPRETATION: Low Risk Optimal Level: LDL Less than 100 MG/DL Near or Above Optimal: LDL 100-129 MG/DL Borderline High Risk: LDL 130-159 MG/DL High Risk: LDL 160-189 MG/DL Very High Risk: LDL Greater than 189 MG/DL 142 Anion gap measurement may be of limited value in the presence of any alkalosis, especially in a combined acid base disorder. . 143 Note change in reference range as of 11/08/07. The change was based on recommendations from the [place] [employer]. 144 Please note change in reference range effective 07 . 145 THERAPEUTIC TARGET FOR THE TREATMENT OF DIABETES MELLITUS PATIENTS IS <7% HBA1C, AND IN SELECTIVE PATIENTS <6.0%. PLEASE REFER TO [employer] DIABETIC CARE GUIDELINES FOR FURTHER INFORMATION. 146 MICROALBUMINURIA IN A RANDOM SAMPLE IS DEFINED : MICROALBUMIN/CREATININE RATIO OF 30-299 ug/mg. . 147 Anion gap measurement may be of limited value in the presence of any alkalosis, especially in a combined acid base disorder. . 148 PATIENT MAY HAVE RESULTS PER DOCTOR'S AUTHORIZATION. Questions regarding this report should be directed to your doctor. 149 Anion gap measurement may be of limited value in the presence of any alkalosis, especially in a combined acid base disorder. . 150 MICROALBUMIN CONCENTRATIONS ARE USED TO CLASSIFY PATIENTS NORMAL: LESS THAN 30 MG/24HRS MICROALBUMINURIA: 30-300 MG/24HRS CLINICAL ALBUMINURIA: GREATER THAN 300 MG/24HRS THE [employer] POSITION STATEMENT ON DIABETIC NEPHROPATHY STATES THAT MICROALBUMINURIA IS PRESENT IF URINARY ALBUMIN EXCRETION EXCEEDS 30 MG/24HRS (20 MCG/MIN). THE THRESHOLD FOR CLINICAL ALBUMINURIA IS REACHED AT 300 MG/24HRS (200 MCG/MIN). THE CLASSIFICATION OF A PATIENT SHOULD BE BASED UPON AT LEAST 2 OF 3 ABNORMAL RESULTS ON SPECIMENS COLLECTED WITHIN A 3 TO 6 MONTH TIME FRAME. REFERENCE: [employer], POSITION STATEMENT, DIABETIC NEPHROPATHY, DIABETES CARE, 20, SUPPLEMENT 1, S24-S27, 1996. . 151 CHOLESTEROL INTERPRETATION: Desirable: Less than 200 MG/DL Borderline-High Risk: 200-239 MG/DL High-Risk: 240 MG/DL and over 152 HDL INTERPRETATION: Undesirable: High Risk: Less than 40 MG/DL Desirable: Low Risk: Greater than 60 MG/DL 153 LDL INTERPRETATION: Low Risk Optimal Level: LDL Less than 100 MG/DL Near or Above Optimal: LDL 100-129 MG/DL Borderline High Risk: LDL 130-159 MG/DL High Risk: LDL 160-189 MG/DL Very High Risk: LDL Greater than 189 MG/DL 154 * SERUM LEVELS OF PSA MEASURED USING THE JellyCloud ACCESS HYBRITECH IMMUNOASSAY SHOULD NOT BE INTERPRETED ABSOLUTE EVIDENCE OF THE PRESENCE OR ABSENCE OF DISEASE. THE PSA VALUE SHOULD BE USED IN CONJUNCTION WITH OTHER PERTINENT CLINICAL DIAGNOSTIC PROCEDURES. 155 -- REFERENCE VALUE -- <=13 (Fasting) Test Performed by: [facility] Dpt of Lab Med and Pathology [address] [place] [address] Stretching Press Operator: Herbert Jara III, M.D. 156 REFERENCE RANGE FOR CHILDREN LESS THAN 6 YRS OF AGE: CDC CLASS* BLOOD LEAD CONCENTRATION (MCG/DL) I LESS THAN OR EQUAL TO 9 IIA 10 - 14 IIB 15 - 19 III 20 - 44 IV 45 - 69 V GREATER THAN OR EQUAL TO 70 *REFER TO CURRENT CDC GUIDELINES FOR COMMENTS AND INTERVENTIONS RECOMMENDED FOR EACH CLASS. CERTIFICATE OF BLOOD LEAD TESTING THIS IS TO CERTIFY THAT THE ABOVE NAMED PATIENT HAS BEEN TESTED FOR BLOOD LEAD. TESTING WAS PERFORMED BY [facility] WHICH IS LICENSED BY [facility] TO PERFORM BLOOD LEAD TESTING. THIS CERTIFICATE IS PROVIDED A SERVICE TO OUR CLIENTS AND THEIR PATIENTS WHO MAY BE REQUIRED TO PRODUCE DOCUMENTATION OF BLOOD LEAD TESTING. . 157 PLEASE NOTE NEW REFERENCE RANGES. 158 THERAPEUTIC TARGET FOR THE TREATMENT OF DIABETES MELLITUS PATIENTS IS <7% HBA1C, AND IN SELECTIVE PATIENTS <6.0%. PLEASE REFER TO [employer] DIABETIC CARE GUIDELINES FOR FURTHER INFORMATION. 159 Anion gap measurement may be of limited value in the presence of any alkalosis, especially in a combined acid base disorder. . Procedures Date Code Description Status 04/25/2018 [id number] Diabetic Retinal Eye Exam Completed 04/05/2018 [id number] Diabetic Retinal Eye Exam Completed 02/16/2018 55342 Admin & Interp Of Health Risk Assessment w/ Patient Completed 04/28/2017 96620 TKR Total Knee Replacement Completed 04/28/2017 21486 TKR Total Knee Replacement Completed 04/28/2017 80120 TKR Total Knee Replacement Completed 04/18/2017 86496 EKG Tracing & Interpretation Completed 01/30/2017 61140 Admin & Interp Of Health Risk Assessment w/ Patient Completed 06/08/2016 94743 Inject/Drain Joint/Bursa Major W/O US Completed 06/02/2016 80065 Inject/Drain Joint/Bursa Major W/O US Completed 05/25/2016 62735 Inject/Drain Joint/Bursa Major W/O US Completed 03/23/2016 37609 Inject/Drain Joint/Bursa Major W/O US Completed 12/29/2015 52974 Abrasion Arthroplasty Multiple Drilling Or Completed Microfracture 12/29/2015 20224 Abrasion Arthroplasty Multiple Drilling Or Completed Microfracture 12/29/2015 86633 Arthroscopy,Knee,Meniscectomy Medial Or Lateral Completed 12/29/2015 80311 Arthroscopy,Knee,Meniscectomy Medial Or Lateral Completed 12/16/2015 77402 EKG Tracing & Interpretation Completed 11/26/2015 [id number] Diabetic Retinal Eye Exam Completed 01/19/2015 [id number] Diabetic Retinal Eye Exam Completed 06/09/2014 [id number] Colonoscopy Completed 08/26/2013 [id number] Diabetic Retinal Eye Exam Completed 02/06/2012 63313 EKG Tracing & Interpretation Completed 10/27/2009 75313 Screening Vision Test Completed 03/02/2009 [id number] Colonoscopy Completed 10/01/2008 45622 ECHO Stress Test Incl Perf Contiuous ekg Monitoring Completed W/Phys Superv 10/01/2008 51864 ECHO Stress Test Incl Perf Contiuous ekg Monitoring Completed W/Phys Superv 09/11/2008 59252 EKG Tracing & Interpretation Completed 01/04/2003 34811 Treadmill Interp/Report Only Completed 01/04/2003 96987 Stress Test Supervsn W/Out I/R Completed Encounters Type Date Location Provider Dx Diagnosis Office Visit 10/01/2018 Orthopedic Rosina Mcneil, M25.562 Pain in left knee 3:30p Services Of Eryn Cordova. Z96.652 Presence of left artificial knee joint M62.81 Muscle weakness (generalized) Office Visit 09/26/2018 1:15p Orthopedic Kim S61.210A Laceration w/o Services Of [place], RPA-C fb of r idx fngr C.M.A. w/o damage to nail, init Office Visit 07/02/2018 3:15p Orthopedic Rosina Mcneil, M25.562 Pain in left Services Of M.D. knee C.M.A. Z96.652 Presence of left artificial knee joint Office Visit 05/11/2018 3:00p Orthopedic Services Rosina Mcneil, M25.562 Pain in left Of C.M.A. M.D. knee Z96.652 Presence of left artificial knee joint Office Visit 02/16/2018 2:40p [facility] Jose Rubio Z00.01 Encounter for Ryanne Shnakar M.D.,[facility] general adult [address] medical exam w abnormal findings E55.9 Vitamin D deficiency, unspecified E11.9 Type 2 diabetes mellitus without complications I15.8 Other secondary hypertension Office Visit 10/20/2017 2:40p [facility] Jose Rubio E11.9 Type 2 diabetes Ryanne Shankar M.D.,CHIDI mellitus without [address] complications I10 Essential (primary) hypertension Office Visit 08/18/2017 2:45p Orthopedic Rosina Mcneil, Z47.1 Aftercare Services Of [place] following joint C.M.A. replacement surgery Z96.652 Presence of left artificial knee joint M25.562 Pain in left knee Office Visit 07/19/2017 10:00a [facility] Jose Rubio E11.9 Type 2 diabetes Ryanne Shankar M.D.,FACJeremy mellitus without [address] complications L82.1 Other seborrheic keratosis Office Visit 06/08/2017 1:40p [facility] Jose Rubio L03.116 Cellulitis of Ryanne Shankar M.D.,FAC left lower limb [address] Z96.652 Presence of left artificial knee joint E11.9 Type 2 diabetes mellitus without complications Office Visit 04/30/2017 [facility] Minnie Duggan, E11.9 Type 2 diabetes 9:45a Assoc,pc M.D. 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 mellitus without Hospitalists complications I10 Essential (primary) hypertension Z96.652 Presence of left artificial knee joint Z79.4 prison (current) use of insulin Office Visit 04/28/2017 [facility] Minnie Duggan, E11.9 Type 2 diabetes 9:40a Assoc,pc M.D. 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 M.D. knee M25.462 Effusion, left knee M17.12 Unilateral primary osteoarthritis, left knee Office Visit 01/30/2017 3:00p Zeenat Rubio Z00.01 Encounter for Ryanne Shankar M.D.,[facility] general adult [address] medical exam w abnormal findings E11.9 Type 2 diabetes mellitus without complications M17.12 Unilateral primary osteoarthritis, left knee I15.8 Other secondary hypertension Office Visit 09/14/2016 Orthopedic Jeison Lugo, M17.12 Unilateral primary 9:15a Services [facility] [place] osteoarthritis, left C.M.A. knee Office Visit 06/16/2016 Yvonne Mcgovern J20.9 Acute bronchitis, 4:00p Jose Farley M.D. unspecified Itao od Office Visit 05/27/2016 Zeenat Rubio E11.9 Type 2 diabetes 3:40p Medicine - [address] [place], mellitus without R M.D.,FACP complications I15.8 Other secondary hypertension A69.20 Lyme disease, unspecified Office Visit 05/04/2016 Orthopedic Jeison Lugo, M17.12 Unilateral primary 3:15p [facility] [place] osteoarthritis, left C.M.A. knee Office Visit 01/29/2016 [facility] Internal [place] Z00.00 Encntr for general 3:00p Medicine - [address], adult medical exam R M.D. w/o abnormal findings E11.65 Type 2 diabetes mellitus with hyperglycemia I10 Essential (primary) hypertension E78.2 Mixed hyperlipidemia Office Visit 12/16/2015 3:20p [facility] Internal Riki Green Z01.818 Encounter for other Medicine - V[employer]IN[employer]ACTITIONER preprocedural Ccmob examination S83.232D Complex tear of medial mensc, current injury, l knee, subs E11.65 Type 2 diabetes mellitus with hyperglycemia I10 Essential (primary) hypertension G47.33 Obstructive sleep apnea (adult) (pediatric) Office Visit 12/14/2015 Orthopedic Jeison Lugo, S83.242A Oth tear of medial 1:45p Services Of [place] meniscus, current C.M.A. injury, left knee, init Office Visit 11/30/2015 Orthopedic Jeison Lugo, S83.242A Oth tear of medial 11:00a Services Of [place] meniscus, current C.M.A. injury, left knee, init Office Visit 11/13/2015 [facility] Internal Angel Rubio E11.65 Type 2 diabetes 1:40p Medicine - [address] [place], mellitus with R M.D.,FACP hyperglycemia E55.9 Vitamin D deficiency, unspecified S83.204D Oth tear of unsp meniscus, current injury, left knee, subs Office Visit 09/15/2015 [facility] Internal [place] M25.562 Pain in left knee 4:20p Ryanne Gregorio M.D. [address] Office Visit 07/29/2015 [facility] Internal Angel Rubio E11.65 Type 2 diabetes 4:00p Ryanne Shankar M.D.,FACP mellitus with [address] hyperglycemia E26.9 Hyperaldosteronism, unspecified D64.9 Anemia, unspecified R10.811 Right upper quadrant abdominal tenderness Office Visit 04/29/2015 [facility] Internal Angel Rubio E26.9 Hyperaldosteronism , 2:00p Ryanne Shankar unspecified [address] M.DElliot,FACP E11.9 Type 2 diabetes mellitus without complications Office Visit 04/01/2015 1:40p [facility] Internal Angel Rubio E11.65 Type 2 diabetes Ryanne Shankar M.D.,[facility] mellitus with [address] hyperglycemia E11.9 Type 2 diabetes mellitus without complications Office Visit 01/16/2015 2:00p [facility] Internal Angel Rubio Z00.01 Encounter for Ryanne Shankar M.D.,[facility] general adult [address] medical exam w abnormal findings E11.9 Type 2 diabetes mellitus without complications E26.9 Hyperaldosteronism, unspecified G47.33 Obstructive sleep apnea (adult) (pediatric) Office Visit 08/27/2014 3:00p [facility] Internal Michelet Borja, 729.81 Swelling Of Limb Medicine - [address]iot R 728.89 Muscle Disorders Other 728.85 Spasm Muscle Office Visit 02/05/2014 [facility] Internal Angel Rubio 255.10 Hyperaldosteronism, 2:40p Bere Cornejo Ccmob Efrem,FACP 250.00 Diabetes Mellitus W/O Compl Type II Or Unspec Controlled Office Visit 12/03/2013 9:30a [facility] Internal Edouard Su, 465.8 [facility] PRACTITIONER Infections Acute Other Multiple Sites Office Visit 11/20/2013 1:00p [facility] Internal Edouard Su, 461.0 Sinusitis Acute Medicine - Veroniqueob VETERINARY PRACTITIONER Maxillary 462 Pharyngitis Acute Office Visit 11/01/2013 3:00p [facility] Internal Angel Rubio V70.0 Examination Ryanne Shankar M.D.,[facility] General Medical Ccmob Routine AT Health Care Facility 250.02 Diabetes Mellitus W/O Compl Type II Or Unspec Type Uncontrol 272.2 Hyperlipidemia Mixed V03.82 Streptococcus Pneumoniae Vaccination Spec Other Office Visit 06/19/2013 4:40p [facility] Internal Angel Rubio 466.0 Bronchitis Acute Ryanne Shankar M.D.,FAC [facility] Office Visit 11/07/2012 3:00p [facility] Internal Angel Rubio 250.00 Diabetes Mellitus Ryanne Shankar M.D.,FACP W/O Compl Type II C[facility]ob Or Unspec Controlled Office Visit 08/24/2012 4:40p [facility] Internal Angel Rubio 462 Pharyngitis Acute Ryanne Shankar M.D.,FACP C[facility]ob Office Visit 08/17/2012 1:40p [facility] Internal Steffanie Glover, 599.89 Urinary Tract Ryanne Martin M.D. Other Spec C[facility]ob Disorders Office Visit 08/06/2012 3:20p [facility] Internal Angel Rubio 255.10 Hyperaldosteronis Ryanne Shankar M.D.,FACP m, Unspecified C[facility]ob 788.1 Dysuria 250.00 Diabetes Mellitus W/O Compl Type II Or Unspec Controlled 244.9 Hypothyroidism Other Unspec 216.9 Benign Neoplasm Skin Site Unspec Office Visit 05/09/2012 3:00p [facility] Internal Angel Rubio 250.00 Diabetes Mellitus Ryanne Shankar M.D.,FACP W/O Compl Type II C[facility]ob Or Unspec Controlled 785.1 Palpitations 255.10 Hyperaldosteronism, Unspecified Office Visit 03/08/2012 [facility] Internal Delilah 255.10 Hyperaldosteronism, 12:30p Ryanne Dejesus, N.PElliot Unspecified Ccmob 466.0 Bronchitis Acute Office Visit 02/06/2012 3:00p [facility] Internal Angel Rubio V70.0 Examination Ryanne Shankar M.D.,[facility] General Medical Ccmob Routine AT Health Care Facility 255.10 Hyperaldosteronism, Unspecified 250.00 Diabetes Mellitus W/O Compl Type II Or Unspec Controlled 607.84 Impotence Organic Origin V04.81 Need For Prophylactic Vaccination & Inoculation/Influenza Office Visit 07/15/2011 11:40a [facility] Internal Angel Rubio 250.00 Diabetes Mellitus [facility] M.[facility] W/O Compl Type II Ccmob Or Unspec Controlled 285.8 Anemia Other Spec 255.10 Hyperaldosteronism, Unspecified Office Visit 12/31/2010 11:00a DO Not Use Zeenat Rubio V70.0 [place] M[place].,[facility] General Medical Routine AT Health Care Facility 250.00 Diabetes Mellitus W/O Compl Type II Or Unspec Controlled 255.10 Hyperaldosteronism, Unspecified 285.8 Anemia Other Spec V76.44 Screening For Malig Braulio Prostate v06.1 Pnsklpuqwz-Ofgphjh-Gzyymzmf Combined (DTaP) Office Visit 07/06/2010 3:40p DO Not Use [employer] Angel Rubio 250.00 [facility] W/O Compl Type II Or Unspec Controlled 473.8 Sinusitis Chronic Other 255.10 Hyperaldosteronism, Unspecified Office Visit 02/19/2010 DO Not Use [employer] Angel Rubio 250.60 Diabetes W/ 1:20p [facility]FACP Neurological Manifestations Type II Controlled 255.10 Hyperaldosteronism, Unspecified 340 Multiple Sclerosis Office Visit 12/10/2009 DO Not Use Angel Rubio 255.10 Hyperaldosteronism, 1:00p [employer] AT [place] [facility],FACP 405.19 Hypertension Secondary Other Benign 723.4 Brachial Neuritis Or Radiculitis NOS Office Visit 10/27/2009 3:00p DO Not Use [employer] Angel Rubio V70.0 Examination AT [facility] Efrem Shankar,FACP General Medical Routine AT Health Care Facility v70.0 Examination General Medical Routine AT Health Care Facility 255.10 Hyperaldosteronism, Unspecified 250.00 Diabetes Mellitus W/O Compl Type II Or Unspec Controlled 272.2 Hyperlipidemia Mixed Office Visit 08/27/2009 8:30a DO Not Use [employer] Angel Rubio 702.19 Seborrheic AT [facility] Efrem Shankar,FACP Keratosis Other 401.1 Hypertension Benign Office Visit 03/06/2009 DO Not Use Angel Rubio 255.10 Hyperaldosteronism, 2:00p [employer] AT [place] [facility],FACP 250.00 Diabetes Mellitus W/O Compl Type II Or Unspec Controlled 405.19 Hypertension Secondary Other Benign 592.0 Calculus Of Kidney 272.2 Hyperlipidemia Mixed V04.81 Need For Prophylactic Vaccination & Inoculation/Influenza v04.81 Need For Prophylactic Vaccination & Inoculation/Influenza Office Visit 12/16/2008 DO Not Use Angel Joanne 255.10 Hyperaldosteronism, 2:00p [employer] AT [place] [facility] Topete,FACP 405.19 Hypertension Secondary Other Benign 250.00 Diabetes Mellitus W/O Compl Type II Or Unspec Controlled 788.41 Urinary Frequency Office Visit 10/14/2008 1:40p DO Not Use [employer] Angel Rubio 250.00 Diabetes Mellitus AT [facility] Efrem Shankar,[facility] W/O Compl Type II Or Unspec Controlled 405.19 Hypertension Secondary Other Benign Office Visit 10/01/2008 Venita Felipe S. 405.19 Hypertension 3:45p Cardiology Efrem Nick Secondary Other Benign 413.9 Angina Pectoris Other Unspec Office Visit 09/11/2008 DO Not Use Angel Rubio 255.10 Hyperaldosteronism, 1:00p [employer] AT [place], Unspecified [place],[facility] 250.00 Diabetes Mellitus W/O Compl Type II Or Unspec Controlled 405.19 Hypertension Secondary Other Benign 413.9 Angina Pectoris Other Unspec Office Visit 06/11/2008 1:00p DO Not Use [employer] Angel Rubio V70.0 Examination AT [place] Shankar M.D.,[facility] General Medical Routine AT Health Care Facility 250.00 Diabetes Mellitus W/O Compl Type II Or Unspec Controlled 255.10 Hyperaldosteronism, Unspecified 327.23 Obstructive Sleep Apnea Adult & Pediatric 272.2 Hyperlipidemia Mixed Office Visit 03/31/2008 1:40p DO Not Use [employer] Lesa, E906.3 Bite Other [place] M.D. Animal Except Arthropod V06.5 Tetanus Diphtheria (DT) Office Visit 07/10/2007 DO Not Use Veronica Alvarenga PA 727.67 Ruptured Tendon 1:00p [employer] AT [place] [facility] Office Visit 06/26/2007 DO Not Use Angel Shankar, 255.10 Hyperaldosteroni 2:20p [employer] AT Efrem,[facility] sm, Unspecified [facility] 401.1 Hypertension Benign 250.00 Diabetes Mellitus W/O Compl Type II Or Unspec Controlled 355.9 Mononeuritis Unspec Site Office Visit 05/28/2007 10:40a DO Not Use [employer] Angel Rubio 250.00 Diabetes Mellitus AT [place] M.D.,[facility] W/O Compl Type II Or Unspec Controlled 255.10 Hyperaldosteronism, Unspecified Office Visit 03/07/2007 1:00p DO Not Use [employer] Angel Rubio V70.0 Examination AT [place] Shankar M.D.,FACP General Medical Routine AT Health Care Facility v70.0 Examination General Medical Routine AT Health Care Facility 405.19 Hypertension Secondary Other Benign 255.10 Hyperaldosteronism, Unspecified 250.00 Diabetes Mellitus W/O Compl Type II Or Unspec Controlled 729.2 Neuralgia Neuritis & Radiculitis Unspec Plan of Treatment Future Appointment(s):10/25/2018 4:00 pm - Juan Farley M.D. at [facility] Internal Medicine - Ccmob10/22/2018 - Andree Harley M.D.S61.210D Laceration without foreign body of right index finger withouFollow up:Follow up: As needed
--- NOTE | 2018-11-19 22:56 | ED ---
HPI Chest Pain - HPI Summary HPI Summary: Pt is a 63 y/o M presenting to the ED with a chief complaint of chest pain initially onset around 1999 while he was out to dinner. He states he was at [place] when he experienced a sudden pain in his R jaw and the R side of his neck, felt out of it, and felt like there was a fist in his chest. He also notes he was salivating, slightly nauseous, and that he was fatigued and achey due to some decreased sleep over the past couple of days. He denies SOB, and his states he did not look pale or diaphoretic. He states his sx are worsened on movement, and have mostly resolved, but are still lingering. - History of Current Complaint Chief Complaint: EDChestPainROMI Time Seen by Provider: 11/19/18 22:42 Hx Obtained From: Patient Onset/Duration: Started Hours Ago, Resolved - mostly Timing: Constant, Lasting Hours Initial Severity: Moderate Current Severity: Mild Pain Intensity: 2 Pain Scale Used: 0-10 Numeric Chest Pain Location: Diffuse Chest Pain Radiates: Yes Chest Pain Radiates To:: Jaw, Neck Character: Pressure/Squeezing Aggravating Factor(s): Exertion Alleviating Factor(s): Nothing Associated Signs and Symptoms: Positive: Chest Pain, Nausea, Other: - jaw pain, feeling out of it, fatigue, achey. Negative: Shortness of Breath, Diaphoresis - Additional Pertinent History Primary Care Physician: [id number] - Allergy/Home Medications Allergies/Adverse Reactions: Allergies Allergy/AdvReac Type Severity Reaction Status Date / Time HAY FEVER AdvReac Mild Runny Nose Uncoded 11/19/18 22:29 PMH/Surg Hx/FS Hx/Imm Hx Previously Healthy: Yes Endocrine/Hematology History: Reports: Hx Diabetes Denies: Hx Bone Marrow Disease, Hx Sickle Cell Disease Cardiovascular History: Reports: Hx Hypertension, Other Cardiovascular Problems/ Disorders - RLL NODULE ON CXR/03/2012/ CT REVEALS SCAR FROM PRIOR INFECTION Denies: Hx Pacemaker/ICD Respiratory History: Reports: Hx Sleep Apnea - DX LATE 1989 OR 1999 GI History: Reports: Hx Irritable Bowel - PATIENT REPORTS 20 YEARS AGO, Other GI Disorders - adrenal GLAND REMOVED LEFT History: Reports: Hx Kidney Stones - rt ureteral calculi CURRENT STONE LEFT KIDNEY, Other Problems/Disorders - CURRENT ISSUE REASON FOR SURGERY Denies: Hx Renal Disease Musculoskeletal History: Reports: Hx Arthritis - GENERALIZED Denies: Other Musculoskeletal History Sensory History: Reports: Hx Cataracts - BILAT, Hx Contacts or Glasses - GLASSES Denies: Hx Hearing Aid Opthamlomology History: Reports: Hx Cataracts - BILAT, Hx Contacts or Glasses - GLASSES Neurological History: Reports: Other Neuro Impairments/Disorders - BILAT FEET AND HANDS Psychiatric History: Reports: Hx Anxiety - IMPROVED, Hx Depression - IMPROVED Denies: Hx Panic Disorder - Surgical History Surgery Procedure, Year, and Place: LEFT ADRENAL GLAND REMOVED 2013 [facility]. LEFT ACHILLES TENDON REPAIR 6 [place] [facility] [place] TONSIL[place] CHILD. RIGHT KIDNEY [facility] [place]. MENESCUS REPAIR 2016 [facility] [place]. Total L knee replacement 04/28/17 Hx Anesthesia Reactions: No Infectious Disease History: No Infectious Disease History: Denies: Traveled Outside the [place] in Last 30 Days - Family History Known Family History: Positive: Other - colon CA - father, thyroid disorder - sister - Social History Alcohol Use: Occasionally Alcohol Amount: 1 PER WEEK Hx Substance Use: No Substance Use Type: Reports: None Hx Tobacco Use: No Smoking Status (MU): Never Smoked Tobacco Have You Smoked in the Last Year: No Review of Systems Positive: Fatigue, Other - salivating. Negative: Skin Diaphoresis Positive: Chest Pain Negative: Shortness Of Breath Positive: Nausea Positive: Other - achey Neurological: Other - "out of it" All Other Systems Reviewed And Are Negative: Yes Physical Exam - Summary Physical Exam Summary: Appearance: Well-appearing, Well-nourished, lying in bed comfortably Skin: Warm, dry, no obvious rash Eyes: sclera anicteric, no conjunctival pallor ENT: mucous membranes moist, pharynx appears normal Neck: Supple, nontender Respiratory: Clear to auscultation, no signs of respiratory distress Cardiovascular: Normal S1, S2. No murmurs. Normal distal pulses in tibial and radial bilaterally. Abdomen: Soft, nontender, normal active bowel sounds present Musculoskeletal: Normal, Strength/ROM Intact Neurological: A&Ox3, awake and alert, mentation is normal, speech is fluent and appropriate Psychiatric: affect is normal, does not appear anxious or depressed Triage Information Reviewed: Yes Vital Signs On Initial Exam: Initial Vitals Temp Pulse Resp BP Pulse Ox 98.4 F 102 16 160/84 96 11/19/18 22:27 11/19/18 22:27 11/19/18 22:27 11/19/18 22:27 11/19/18 22:27 Vital Signs Reviewed: Yes Diagnostics - Vital Signs Vital Signs Temp Pulse Resp BP Pulse Ox 11/19/18 22:27 98.4 F 102 16 160/84 96 - Laboratory Result Diagrams: 11/19/18 23:24 11/19/18 23:24 Lab Statement: Any lab studies that have been ordered have been reviewed, and results considered in the medical decision making process. - EKG 2222 Cardiac Rate: Tachycardia - 100bpm EKG Rhythm: Sinus Tachycardia ST Segment: Normal Ectopy: None Summary of EKG Findings: EKG at 2222 shows sinus tachycardia at 100bpm with nml axis and nml intervals. No STEMI. Chest Pain Course/Dx - Course Course Of Treatment: Pt is a 63 y/o M presenting to the ED with a chief complaint of chest pain initially onset around 1999 while he was out to dinner. He states he was at [place] when he experienced a sudden pain in his R jaw, felt out of it, and felt like there was a fist in his chest. He also notes he was salivating, slightly nauseous, and that he was fatigued and achey due to some decreased sleep over the past couple of days. He denies SOB, and his states he did not look pale or diaphoretic. The pt's physical exam is nml. EKG at 2222 shows sinus tachycardia at 100bpm with nml axis and nml intervals. No STEMI. Pt's initial troponin is 0.01. Pt's second troponin is 0.01. Pt will be d/c'ed with dx of chest pain. He is stable and agreeable with this plan. - Diagnoses Provider Diagnoses: Chest pain Discharge ED - Sign-Out/Discharge Documenting (check all that apply): Patient Departure Patient Received Moderate/Deep Sedation with Procedure: No - Discharge Plan Condition: Good Disposition: HOME Patient Education Materials: Chest Pain (ED) Referrals: Juan Farley MD [Primary Care Provider] - 1 Week Additional Instructions: The tests we ran tonight, putting you at low risk of a cardiac problem, so it is safe to discharge you. I would recommend seeing your regular doctor in followup in the next week or so, to see if any further testing might be indicated. - Billing Disposition and Condition Condition: GOOD Disposition: Home - Attestation Statements Document Initiated by Mariah: Yes Documenting Scribe: Martine Astorga Provider For Whom Mariah is Documenting (Include Credential): Elmer Bryant MD. Scribe Attestation: Martine Ziegler, scribed for Elmer Bryant MD. on 11/23/18 at 1910. Scribe Documentation Reviewed: Yes Provider Attestation: The documentation as recorded by the Martine cruz accurately reflects the service I personally performed and the decisions made by me, Elmer Bryant MD. Status of Scribe Document: Viewed
[2018-11-19 23:31] LABS: ABS Basophils 0.1 10^3/ul (0-0.2); ABS Eosinophils 0.4 10^3/ul (0-0.6); ABS Lymphocytes 2.7 10^3/ul (1.0-4.8); ABS Neutrophils 6.2 10^3/ul (1.5-7.7); Eosinophil % 3.6 %; Hematocrit 41 % (42-52); Hemoglobin 13.9 g/dL (14.0-18.0); Lymphocyte % 26.2 %; Mean Corpuscular HGB Conc 34 g/dL (31-36); Mean Corpuscular Hemoglobin 31 pg (27-31); Mean Corpuscular Volume 89 fL (80-94); Mean Platelet Volume 6.2 fL (7.4-10.4); Nucleated Red Blood Cells % 0.1; Platelet Count 320 10^3/uL (150-450); Red Blood Count 4.56 10^6 /uL (4.18-5.48); Red Cell Distribution Width 13 % (10-15); White Blood Count 10.4 10^3/uL (3.5-10.8)
[2018-11-19 23:40] LABS: INR 1.14 (0.82-1.09)
[2018-11-19 23:48] LABS: Albumin 4.1 g/dL (3.2-5.2); Albumin/Globulin Ratio 1.4 (1-3); BUN/Creatinine Ratio 24.7 (8-20); Calcium 9.7 mg/dL (8.6-10.3); EGFR African American 98.7 (>60); EGFR Non-African American 81.5 (>60); Globulin 2.9 g/dL (2-4); Potassium 4.5 mmol/L (3.5-5.0); Total Bilirubin 0.4 mg/dL (0.2-1.0)
[2018-11-19 23:49] LABS: Troponin I 0.01 ng/mL (<0.04)
[2018-11-20 03:44] VITALS: BP 100/52
== END 2018-11-20 03:43 | disposition home or self-care (01) ==
LOC: ED 22:19
DX: R07.9 Chest pain, unspecified (principal); E11.9 Type 2 diabetes mellitus without complications; I10 Essential (primary) hypertension; F41.9 Anxiety disorder, unspecified; F32.9 Major depressive disorder, single episode, unspecified; Z79.4 Long term (current) use of insulin; Z79.899 Other long term (current) drug therapy
CPT/HCPCS: 36415; 80053; 84484; 85025; 85610; 93005; 99283

== ENCOUNTER 2023-10-24 06:18 | Observation (INO) ==
[~2023-10-24 06:18] MED LIST changes: -Buffered Lidocaine 0.9% SYRIN* 5 ML/SYR SYRINGE INTRADERM ONE; +Naloxone 0.4 mg VIAL 0.4 mg/ml 1 ml VIAL IV PRN; +Ondansetron 4 mg VIAL 2 MG/ML 2 ml VIAL IV PRN; +fentaNYL 100 mcg/2 ml 50 MCG/ML VIAL IV PRN
[2023-10-24] MEDS ORDERED: ceFAZolin 2 GM in NS PREMIX 2 GM/100 ML BAG IVPB ONE (06:56)
[2023-10-24 07:09] LABS: Rapid COVID-19 Molecular Undetected (Undetected)
[2023-10-24] MEDS: Buffered Lidocaine 1% SYRIN 1 ml INTRADERM ONE (07:16)
[2023-10-24] MEDS: Lactated Ringers 1000 ml BAG 1,000 ML IV SCH ×2 (07:16→13:31)
[2023-10-24] MEDS ORDERED: fentaNYL 100 mcg/2 ml 50 MCG/ML VIAL ONE ×2 (08:00→08:03)
[2023-10-24] MEDS ORDERED: Rocuronium 50 mg VIAL 10 mg/ml 5 ml VIAL (50 mg) ONE ×2 (08:02→10:10)
[2023-10-24] MEDS ORDERED: Propofol 10 MG/ML 20 ML BTL ONE (08:02)
[2023-10-24] MEDS ORDERED: Midazolam 2 mg/2 ml VIAL 1 mg/ml 2 ml VIAL (2 mg) ONE (08:03)
[2023-10-24] MEDS ORDERED: ROPIVACAINE 5 MG/ML 30 ML BTL (0.5%) ONE ×3 (08:20→08:55)
[2023-10-24] MEDS ORDERED: Dexamethasone IV 4 MG/ML VIAL 1 ml VIAL ONE ×2 (08:21→09:49)
[2023-10-24] MEDS ORDERED: Bupivacaine 0.5% W/EPI SDV 10 ML VIAL INJ ONE ×2 (08:47→08:50)
[2023-10-24] MEDS ORDERED: Ondansetron 4 mg VIAL 2 MG/ML 2 ml VIAL ONE (09:49)
[2023-10-24] MEDS ORDERED: HYDROmorphone 0.5 MG/0.5 ML SYRINGE ONE (09:49)
[2023-10-24] MEDS ORDERED: Morphine 2 MG/ML SYRINGE IV PRN (10:24)
[2023-10-24] MEDS ORDERED: Lactulose 30 ml UDC PO PRN (10:24)
[2023-10-24] MEDS ORDERED: Ondansetron 4 mg VIAL 2 MG/ML 2 ml VIAL IV PRN (10:24)
[2023-10-24] MEDS ORDERED: Ondansetron ODT 4 mg TAB 4 MG TAB PO PRN (10:24)
[2023-10-24] MEDS ORDERED: Magnesium Hydroxide LIQ 30 ML UDC PO PRN (10:24)
[2023-10-24] MEDS ORDERED: Calcium Carb (TUMS) 500 mg CHEW TAB PO PRN (10:24)
[2023-10-24] MEDS ORDERED: Dextrose 50% Syringe 50 ml 25 GM/50 ML SYRINGE IV PUSH PRN (15:58)
[2023-10-24] MEDS: Insulin GLARGINE 100 un/ml 10 ml VIAL SUBCUT ONE (16:24)
[2023-10-24 17:35] LABS: Glucose Confirmatory 471 mg/dL (70-100)
[2023-10-24] MEDS: ceFAZolin 2 GM in NS PREMIX 2 GM/100 ML BAG IVPB SCH (17:54)
[2023-10-24] MEDS: Magnesium Hydroxide LIQ 30 ML UDC PO SCH (19:55)
[2023-10-24] MEDS: REPAGLINIDE 1 MG PO SCH (22:52)
[2023-10-24] MEDS: LIRAGLUTIDE 18 MG/3 ML SUBCUT SCH (22:55)
[2023-10-25 06:59] LABS: Hematocrit 37.1 % (38-53); Mean Platelet Volume 6.4 fL (7.5-11.2); Platelet Count 369 10^3/uL (150-450)
[2023-10-25 07:15] LABS: Calcium 9.2 mg/dL (8.6-10.3); Creatinine, Serum 0.81 mg/dL (0.67-1.17); Potassium 4.6 mmol/L (3.5-5.0); eGFR CKD-EPI 94.9 (>60)
[2023-10-25] MEDS: Vitamin THERAPEUTIC TAB PO SCH (08:00)
[2023-10-25] MEDS ORDERED: INSULIN GLARGINE (NF) 300 UNIT/ML INJ SUBCUT SCH (09:00)
[2023-10-25] MEDS: INSULIN GLARGINE 300 UNIT/ML SUBCUT SCH (09:13)
[2023-10-25 10:05] VITALS: BP 136/71
== END 2023-10-25 12:05 | disposition home or self-care (01) ==
LOC: OR 06:18 → SSU 06:18
PROVIDERS: ADMIT Orthopaedic Surgery Adult Reconstructive Orthopaedic Surgery; ATTEND Orthopaedic Surgery Adult Reconstructive Orthopaedic Surgery